=== PATIENT | male | born 1965 | race Caucasian/White ===

== ENCOUNTER → 2019-07-22 10:46 | Outpatient (BNVA) | payer OTHER, SELFPAY | PROVIDERS: Family Provider Internal Medicine; PCP Internal Medicine; Referring Provider Internal Medicine; Visit Provider Orthopaedic Surgery | DX: M79.641 Pain in right hand (principal) | CPT/HCPCS: 73130 ==

== ENCOUNTER 2021-06-30 08:09 | Emergency (ER) | payer BC, SELFPAY ==
[2021-06-30 08:15] VITALS: BP 179/103; PULSE 90; RESP 12; O2SAT 100; BMI 24.3
--- NOTE | 2021-06-30 08:25 | W.ED.WEAKNES ---
HPI - Weakness General: Chief complaint: Weakness Stated complaint: Chest Pains Time Seen by Provider: 06/30/21 08:11 Source: patient Mode of arrival: ambulatory History of Present Illness: 55-year-old male presents emergency room complaining of generalized weakness. Patient is diabetic and has a history of heart disease. He seems very frustrated on exam he states he has been to the skill training program coordinator office and was seen at a local urgent care. His main complaint now is his legs feel heavy. He was restarted on Coreg yesterday he repeatedly denies any chest pain or difficulty breathing or shortness of breath. Yesterday's cardiology note was reviewed. Patient does have a history of previous [place]. MD Complaint: generalized weakness Onset (ago): day(s) Duration: constant Location: LLE and RLE Migration: none Severity: moderate Relieving factors: none Exacerbating factors: none Associated symptoms: Reports myalgias; Denies chest pain, chills, confusion, melena, decreased appetite, diaphoresis, dysuria, easy bruising, fever(s), headache(s), nausea, rash, short of breath, syncope or vomiting Review of Systems Const: Denies: fever(s), chills or diaphoresis ENMT: Reports: ear or mastoid pain, nasal discharge and nasal congestion; Denies: throat pain Card: Denies: chest pain or syncope Resp: Denies: dyspnea, productive cough or non-productive cough GI: Denies: nausea, vomiting or melena : Denies: dysuria Skin/Breast: Denies: rash or pruritus Neuro: Denies: headache(s) or confusion Emiliano/Lymph: Denies: easy bruising [facility] ED PFSH: Medical History CAD (coronary artery disease) Congestive heart failure Diabetes mellitus Dyslipidemia History of heart attack Hypertension associated with type 2 diabetes mellitus Ischemic cardiomyopathy Palmar fascial fibromatosis [dupuytren] Social History Smoking and tobacco status: never smoked Alcohol intake: never Physical Exam Const: COMMON NORMALS: no acute distress GENERAL APPEARANCE: cooperative and comfortable ORIENTATION/CONSCIOUSNESS: Yes awake, Yes oriented to person, Yes oriented to place and Yes oriented to time HENMT: COMMON NORMALS: normocephalic, atraumatic and hearing grossly normal bilaterally HEAD & SCALP: normocephalic and atraumatic Neck/C-Spine: COMMON NORMALS: no JVD Resp: COMMON NORMALS: normal respiratory effort, No retractions, No use of accessory muscles and clear to auscultation bilaterally AUSCULTATION: clear to auscultation bilaterally Cardio: COMMON NORMALS: no JVD, regular rate, regular rhythm and No murmurs present (Cardio) RATE: regular rate RHYTHM: regular rhythm GI: COMMON NORMALS: Soft to palpation and No hepatosplenomegaly present AUSCULTATION: Yes normoactive bowel sounds PALPATION: Yes Soft to palpation, No Tenderness to palpation present (GI), No Guarding due to palpation present (GI) and Yes No hepatosplenomegaly present Extremity: COMMON NORMALS: normal to inspection, capillary refill normal, no clubbing, cyanosis or edema, no calf tenderness and no pedal edema OTHER: No lower extremity edema negative Homans' sign no pain with palpation of the calf Neuro: SENSORIUM/ORIENTATION: Yes oriented to person, Yes oriented to place and Yes oriented to time Skin: COMMON NORMALS: no rashes or lesions noted GENERAL SKIN EXAM: no rashes or lesions noted Course Vital Signs: Vital signs: Vital Signs Pulse Rate 98 06/30/21 10:30 Respiratory Rate 17 06/30/21 10:30 Blood Pressure 116/81 06/30/21 10:30 Pulse Oximetry 99 06/30/21 10:30 MDM - Weakness Medical Decision Making Venous duplex negative laboratory work negative blood pressure is improved. [place] discharge patient home. He has had intermittent episodes of chest pain for some time cardiology notes reviewed recommend that he follow-up with his cardiologistas soon as possible return if he has further problems. Medical Records I reviewed the patient's medical records. Lab Data I reviewed the patient's lab results. : 06/30/21 08:45 06/30/21 09:23 Laboratory Results WBC 7.7 10^3/uL (4.0-10.0) 06/30/21 08:45 RBC 5.58 10^6/uL (4.1-5.3) H 06/30/21 08:45 Hgb 17.8 g/dL (11.7-16.6) H 06/30/21 08:45 Hct 50.1 % (42.0-52.0) 06/30/21 08:45 MCV 89.8 fl (80-94) 06/30/21 08:45 MCH 31.9 pg (28.0-34.0) 06/30/21 08:45 MCHC 35.5 g/dL (30.0-36.0) 06/30/21 08:45 RDW 11.0 % (12.1-15.1) L 06/30/21 08:45 Plt Count 255 10^3/cmm (130-400) 06/30/21 08:45 MPV 9.9 fL (7.4-10.4) 06/30/21 08:45 Neut % (Auto) 52.4 % 06/30/21 08:45 Lymph % (Auto) 34.5 % 06/30/21 08:45 Glynn % (Auto) 7.2 % 06/30/21 08:45 Eos % (Auto) 5.0 % 06/30/21 08:45 Baso % (Auto) 0.6 % 06/30/21 08:45 Neut # (Auto) 4.04 10^3/uL (1.8-7.7) 06/30/21 08:45 Lymph # (Auto) 2.7 10^3/uL (0.8-4.8) 06/30/21 08:45 Glynn # (Auto) 0.6 10^3/uL (0.2-0.9) 06/30/21 08:45 Eos # (Auto) 0.4 10^3/uL (0.0-0.8) 06/30/21 08:45 Baso # (Auto) 0.1 10^3/uL (0.0-0.1) 06/30/21 08:45 Nucleated RBC % (auto) 0 % 06/30/21 08:45 Nucleated RBCs # 0.0 /100WBC 06/30/21 08:45 Sodium 135 mmol/L (136-145) L 06/30/21 09:23 Potassium 4.4 mmol/L (3.5-5.1) 06/30/21 09:23 Chloride 100 mmol/L (98-107) 06/30/21 09:23 Carbon Dioxide 24 mmol/L (22-29) 02/23/22 09:23 Anion Gap 15.4 (5-19) 06/30/21 09:23 BUN 20 mg/dL (6-20) 06/30/21 09:23 Creatinine 1.0 mg/dL (0.7-1.2) 06/30/21 09:23 GFR Calculation 78.2 mL/min (90-130) L 06/30/21 09:23 Glucose 199 mg/dL (65-115) H 06/30/21 09:23 Calculated Osmolality 288 mOsm/kg (285-295) 06/30/21 09:23 Calcium 9.2 mg/dL (8.5-10.5) 06/30/21 09:23 Troponin T Gen 5 ng/L 15 ng/L (0-15) 06/30/21 09:23 Discharge Plan Discharge Patient Disposition: Home Clinical Impression: Hypertension, Diabetes mellitus, CAD (coronary artery disease), Congestive heart failure, Leg pain Condition: Stable Prescriptions: No Action aspirin 81 mg tablet,delayed release (DR/EC) 81 mg PO DAILY 0RF carvedilol [Coreg] 6.25 mg tablet 6.25 mg PO BID 90 Days Qty: 180 3RF Rx Instructions: must administer with a meal/food ticagrelor [Brilinta] 90 mg tablet 90 mg PO BID Qty: 180 2RF furosemide 20 mg tablet 20 mg PO DAILY Qty: 90 2RF Lomotil 2.5-0.025 mg Tablet 1 tab PO DAILY PRN (Reason: Diarrhea) 0RF Humalog KwikPen Insulin 100 unit/mL insulin pen 9 unit SUBCUT TID 0RF Lantus Solostar U-100 Insulin 100 unit/mL (3 mL) Insulin Pen 20 unit SUBCUT BEDTIME 0RF Probiotic 1 cap PO DAILY 0RF Vitamin D3 1 cap PO DAILY 0RF Discharge Orders: Discharge ED (Routine); Ordered 06/30/21 Ordered By: Angelo Cui Referrals: Marcelo Lester DO [Primary Care Provider] - Discharge Diet: Usual diet Discharge Activity: Limit activity as instructed Patient Instructions: Opioid Safety Activity Restrictions/Additional Instructions: Follow-up with cardiology as previously scheduled. continue all previously prescribed medications. Coding Level of Care Code ED Mortgage Loan Officer for Chg Fwd Exam Comprehensive
[2021-06-30] MEDS: amlodipine 10 mg Tablet PO (08:40)
[2021-06-30] MEDS: hyDRALAzine 20 mg/mL INJ 1 mL 10 MG IVP (08:41)
[2021-06-30 08:54] VITALS: BP 152/88; PULSE 88; RESP 17; O2SAT 99
[2021-06-30 09:01] LABS: Basophils # 0.1 10^3/uL (0.0-0.1); Basophils % 0.6 %; Eosinophils # 0.4 10^3/uL (0.0-0.8); Hematocrit 50.1 % (42.0-52.0); Hemoglobin 17.8 g/dL (11.7-16.6); Lymphocytes # 2.7 10^3/uL (0.8-4.8); Lymphocytes % 34.5 %; Mean Corpuscular HGB Conc 35.5 g/dL (30.0-36.0); Mean Corpuscular Hemoglobin 31.9 pg (28.0-34.0); Mean Corpuscular Volume 89.8 fl (80-94); Mean Platelet Volume 9.9 fL (7.4-10.4); Monocytes # 0.6 10^3/uL (0.2-0.9); Monocytes % 7.2 %; Neutrophils # 4.04 10^3/uL (1.8-7.7); Neutrophils % 52.4 %; Nucleated Red Blood Cells % 0 %; Platelet Count 255 10^3/cmm (130-400); Red Blood Count 5.58 10^6/uL (4.1-5.3); White Blood Count 7.7 10^3/uL (4.0-10.0)
--- NOTE | 2021-06-30 09:11 | USCV_ITS ---
MartinezSebastien Age: 55 Gender: M : 1965 Exam Date: 06/30/2021 09:37 Ordering Phys: Angelo Cui DO Technologist: Rajiv Chapa Exam Location: [facility] – [place]_ Indication: Leg Pain HISTORY: Leg Pain PROCEDURES: Venous duplex imaging was performed in bilateral lower extremities. The following venous structures were evaluated: common femoral vein, profunda vein, proximal portion of the greater saphenous vein, superficial femoral vein, and the popliteal vein. In addition, the posterior tibial and peroneal trunk were evaluated. Serial compression, augmentation maneuvers, and spectral Doppler flow evaluation were performed. FINDINGS: Normal 2-D Doppler and augmentation and compressibility throughout the lower extremity venous structures. Additional imaging through the proximal calf veins also reveals no thrombus. Limited evaluation of the greater saphenous vein is patent with no thrombus. CONCLUSIONS No DVT bilateral lower extremities. Dr. Eugenia Goodwin DO (Electronically Signed) Final Date: 30 June 2021 11:11 S
[2021-06-30 09:24] VITALS: BP 136/89; PULSE 93; RESP 15; O2SAT 98
[2021-06-30 09:59] LABS: Anion Gap 15.4 (5-19); Blood Urea Nitrogen 20 mg/dL (6-20); Calcium 9.2 mg/dL (8.5-10.5); Carbon Dioxide 24 mmol/L (22-29); Chloride 100 mmol/L (98-107); Glomerular Filtration Rate 78.2 mL/min (90-130); Glucose 199 mg/dL (65-115); Osmolality Calculated 288 mOsm/kg (285-295); Potassium 4.4 mmol/L (3.5-5.1); Sodium 135 mmol/L (136-145)
[2021-06-30 10:00] VITALS: BP 130/82; PULSE 91; RESP 15; O2SAT 98
[2021-06-30 10:11] LABS: Troponin T (5th) Once 15 ng/L (0-15)
[2021-06-30 10:30] VITALS: BP 116/81; PULSE 98; RESP 17; O2SAT 99
--- NOTE | 2021-06-30 10:49 | PC.NURSE ---
DISCHARGED PATIENT TO HOME- IV REMOVED- CATH INTACT, PATIENT AND SPOUSE VERBALIZE UNDERSTANDING OF ALL INSTRUCTIONS, AND FOLLOW UP APPTS. PATIENT TAKEN TO LOBBY VIA WHEEL CHAIR
== END 2021-06-30 10:55 | disposition home or self-care (01) ==
PROVIDERS: Emergency Provider Family Medicine; PCP Internal Medicine
DX: I11.0 Hypertensive heart disease with heart failure (principal); I50.9 Heart failure, unspecified; E11.9 Type 2 diabetes mellitus without complications; I25.10 Atherosclerotic heart disease of native coronary artery without angina pectoris; Z79.82 Long term (current) use of aspirin; Z79.4 Long term (current) use of insulin; M79.606 Pain in leg, unspecified; E78.5 Hyperlipidemia, unspecified
CPT/HCPCS: 36415; 80048; 84484; 85025; 93970; 96374; 99283; J0360

== ENCOUNTER 2021-07-05 05:07 | Inpatient (IN) | payer BC, SELFPAY ==
[2021-07-05] VITALS (15 sets, daily range): BP systolic 110–164; BP diastolic 68–104; PULSE 72–92; RESP 16–18; TEMP 36.3–36.8; O2SAT 80–99; BMI 25.0
--- NOTE | 2021-07-05 05:26 | CTR_ITS ---
PROCEDURE INFORMATION: Exam: CT Head Without Contrast Exam date and time: 07/05/2021 5:26 AM Age: 55 years old Clinical indication: Numbness / parasthesia; Left; Additional info: Paresthesia, left TECHNIQUE: Imaging protocol: Computed tomography of the head without contrast. Radiation optimization: All CT scans at this facility use at least one of these dose optimization techniques: automated exposure control; mA and/or kV adjustment per patient size (includes targeted exams where dose is matched to clinical indication); or iterative reconstruction. COMPARISON: No relevant prior studies available. 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 3 mm midline shift to the left secondary to mass effect from subacute infarct with cerebral edema. Cerebral ventricles: No ventriculomegaly. Paranasal sinuses: Visualized sinuses are unremarkable. No fluid levels. Mastoid air cells: Visualized mastoid air cells are well aerated. Bones/joints: Unremarkable. No acute fracture. Soft tissues: Unremarkable. CT/CT head wo con* [id number] IMPRESSION: 1. 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 2. 3 mm midline shift to the left secondary to mass effect from subacute infarct with cerebral edema.
--- NOTE | 2021-07-05 05:27 | ECG_ITS ---
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 Measurements Intervals [place] Rate: 79 P: 53 NE: 159 QRS: 7 QRSD: 103 T: 117 QT: 405 QTc: 464 Interpretive Statements SINUS RHYTHM POSSIBLE LEFT ATRIAL ENLARGEMENT [-0.1mV P-WAVE IN V1/V2] SEPTAL MYOCARDIAL INFARCTION , PROBABLY OLD [40+ ms Q WAVE IN V1/V2] Nonspecific T wave changes Compared to ECG 02/05/2018 06:17:41 ossible ischemia no longer present Myocardial infarct finding still present Electronically Signed On 07-05-2021 17:03:42 REPAIRING CALIBRATOR by Liza Steward M.D. [id number]
--- NOTE | 2021-07-05 05:28 | ED_ITS ---
Documented by User: Silvano Corbett DO 07/05/21 05:39 HPI - Neuro Symptoms/Deficit General: Chief Complaint: Neuro Symptoms/Deficit Stated Complaint: Numbness Time Seen by Provider: 07/05/21 05:17 Source: patient and family History of Present Illness: 55-year-old diabetic male with a history of coronary disease. He presents with paresthesias to his left leg and now his left arm. He was seen in the emergency room 5 days or so ago for similar symptoms to his left lower extremity. Has had these on and off since then. Thi s morning he awoke at 3 AM with similar symptoms to his left upper extremity and his head. He has had a headache on and off for several days. No headache currently. No vision changes, no language changes, but he does say his left side feels heavier than the right. He notes that when he was seen the other day, his blood pressure was fritz high . It has not been high at home since that time. Onset (ago): hour(s) Time: 05:30 Location: left face, left arm and left leg History of same: Yes (See above) Severity: moderate Quality: weak, numb, tingling and intermittent Relieving factors: none Exacerbating factors: none Context: sudden onset On Anticoagulants: No Associated symptoms: Reports headache(s), malaise, nausea and vomiting (Once); Deny chest pain, cough, diaphoresis, fevers/chills, short of breath or syncope Review of Systems Const: Reports: malaise; Denies: diaphoresis ENMT: Denies: throat pain or odynophagia Card: Denies: chest pain or syncope Resp: Denies: dyspnea, productive cough or non-productive cough GI: Reports: nausea and vomiting (Once); Denies: abdominal pain Musc: Denies: neck pain or back pain Neuro: Reports: headache(s) Psych: Reports: anxiety and depression (Father 6 months or so ago.) PFS ED PFSH: Medical History (Updated 07/05/21 @ 12:26 by Angelo Cui DO) CAD (coronary artery disease) Has had stents in RCA, LAD, circumflex with last procedure being angioplasty LAD stent 2018 Congestive heart failure Last ejection fraction 35%. Diabetes mellitus Dyslipidemia History of heart attack Hypertension associated with type 2 diabetes mellitus Ischemic cardiomyopathy Palmar fascial fibromatosis [dupuytren] Surgical History (Updated 07/05/21 @ 10:20 by Segundo Olmstead MD) History of coronary angiogram History of eye surgery Family History (Updated 07/05/21 @ 10:20 by Segundo Olmstead MD) Other CAD (coronary artery disease) Diabetes Social History Smoking and tobacco status: never smoked Alcohol intake: never NIH stroke score NIHSS: Level Of Consciousness - 1a: 0 Level Of Consciousness Questions - 1b: Both Correct Level Of Consciousness Commands - 1c: Both Correct Best Gaze - 2: Normal Visual Oneill - 3: No Visual Loss Facial Palsy - 4: Normal Motor Arm Right - 5: No Drift Motor Arm Left - 5: No Drift Motor Leg Right - 6: No Drift Motor Leg Left - 6: No Drift Limb Ataxia - 7: Absent Sensory - 8: Mild To Moderate Loss Best Language - 9: No Aphasia Dysarthia - 10: Normal Extinction And Inattention - 11: 0 Score: Total Score: 1 Physical Exam Const: COMMON NORMALS: no acute distress and patient oriented x3 GENERAL APPEARANCE: cooperative NUTRITIONAL APPEARANCE: thin HENMT: COMMON NORMALS: normocephalic, atraumatic, hearing grossly normal bilaterally, external ears normal and Normal external nose present HEAD & SCALP: normocephalic and atraumatic FACE & SINUS: normal facial exam and face symmetric NOSE: Normal external nose present EXTERNAL EAR: Yes external ears normal MOUTH: Normal oral and palatal mucosa present THROAT: posterior oropharynx normal Eye: COMMON NORMALS: Equal, round and reactive pupils present and EOMs intact bilaterally PUPIL: Yes Equal, round and reactive pupils present Neck/C-Spine: COMMON NORMALS: full ROM Chest: COMMONS NORMALS: normal inspection of the chest Resp: COMMON NORMALS: normal respiratory effort, No use of accessory muscles and clear to auscultation bilaterally AUSCULTATION: clear to auscultation bilaterally Cardio: COMMON NORMALS: regular rate and regular rhythm RATE: regular rate RHYTHM: regular rhythm GI: COMMON NORMALS: Normal to inspection, nondistended, normoactive bowel sounds present and Soft to palpation PALPATION: Yes Soft to palpation Extremity: COMMON NORMALS: normal to inspection Neuro: PATY COMA SCALE: document GCS findings [place]o coma scale eye opening: Spontaneous [place] coma scale verbal response: Orientated [place] coma scale motor response: Obey commands Jericho coma scale total score: 15 COMMON NORMALS: patient oriented x3 CRANIAL NERVES: Yes CN normal except as noted COORDINATION/BALANCE: [id number] test normal and [id number] test normal SPEECH: speech normal SENSORY EXAM: Yes extremities (Mildly decreased subjectively on the left lower extremity) and Trunk sensory exam abnormal (Normal) MOTOR EXAM: Pronator motor function not present COORDINATION: [id number] test normal and cjig-tv-[id number] test normal Psych: COMMON NORMALS: cooperative ATTITUDE: Yes Withdrawn affect present Course Vital Signs: Vital signs: Vital Signs Temperature 97.4 F L 07/05/21 07:15 Pulse Rate 87 07/05/21 09:30 Respiratory Rate 18 07/05/21 09:30 Blood Pressure 128/84 07/05/21 09:30 Pulse Oximetry 97 07/05/21 09:30 MDM - Neuro Symptoms/Deficit Medical Decision Making Patient gets a 1 on an NIH scale for subjective left lower extremity decreased sensation. Strength is subjectively weak on the left as well, but he does not drift. Exam is otherwise not remarkable. CT and labs are pending. EKG shows a sinus rhythm with a normal axis and intervals. No ST changes. He will be checked out to Dr. Cui at shift change pending results. He awoke with the symptoms, and has had left leg symptoms for several days, so time of onset is difficult. Lab Data : 07/05/21 05:54 07/05/21 05:[address] 07/05/21 05:26 IMPRESSION: 1. 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 2. 3 mm midline shift to the left secondary to mass effect from subacute infarct with cerebral edema. ADDENDUM: 07/05/21 0637 History: Minimal symptoms. Low score on stroke scale. Discussion: CTA head & neck and/or nonemergent MRI brain with without contrast may be helpful to rule out other lesions besides subacute stroke. THIS REPORT CONTAINS FINDINGS THAT MAY BE CRITICAL TO PATIENT CARE. The findings were verbally communicated via telephone conference with Dr. Cui at 6:35 AM PRESCHOOL DIRECTOR on 07/05/2021. The findings were acknowledged and understood. Head MRI 07/05/21 07:49 IMPRESSION: 1. Diffuse T2 signal abnormality mainly in the subcortical configuration involving the RIGHT temporal and parietal lobes with some areas of restricted diffusion and diffuse associated petechial hemorrhage. Diffuse gyriform enhancement. Differential considerations include encephalitis including herpes encephalitis, infiltrating neoplasm, or subacute ischemia. 2. Mild associated mass effect on RIGHT lateral ventricle with mild RIGHT to LEFT midline shift measuring 2-3 mm. 3. Normal vascular flow voids at the skull base. 4. Additional single tiny punctate foci of partially restricted diffusion in the splenium of the corpus callosum and RIGHT posterior temporal lobe. These may represent tiny subacute infarcts. Notified Angelo Cui DO at 07/05/2021 9:54 AM. Laboratory Results WBC 7.2 10^3/uL (4.0-10.0) 07/05/21 05:54 RBC 4.67 10^6/uL (4.1-5.3) 07/05/21 05:54 Hgb 15.1 g/dL (11.7-16.6) 07/05/21 05:54 Hct 44.3 % (42.0-52.0) 07/05/21 05:54 MCV 94.9 fl (80-94) H 07/05/21 05:54 MCH 32.3 pg (28.0-34.0) 07/05/21 05:54 MCHC 34.1 g/dL (30.0-36.0) 07/05/21 05:54 RDW 11.0 % (12.1-15.1) L 07/05/21 05:54 Plt Count 258 10^3/cmm (130-400) 07/05/21 05:54 MPV 9.6 fL (7.4-10.4) 07/05/21 05:54 Neut % (Auto) 51.9 % 07/05/21 05:54 Lymph % (Auto) 35.9 % 07/05/21 05:54 Cowley % (Auto) 6.7 % 07/05/21 05:54 Eos % (Auto) 5.0 % 07/05/21 05:54 Baso % (Auto) 0.4 % 07/05/21 05:54 Neut # (Auto) 3.70 10^3/uL (1.8-7.7) 07/05/21 05:54 Lymph # (Auto) 2.6 10^3/uL (0.8-4.8) 07/05/21 05:54 Cowley # (Auto) 0.5 10^3/uL (0.2-0.9) 07/05/21 05:54 Eos # (Auto) 0.4 10^3/uL (0.0-0.8) 07/05/21 05:54 Baso # (Auto) 0.0 10^3/uL (0.0-0.1) 07/05/21 05:54 Nucleated RBC % (auto) 0 % 07/05/21 05:54 Nucleated RBCs # 0.0 /100WBC 07/05/21 05:54 PT Cancelled 07/05/21 05:54 INR Cancelled 07/05/21 05:54 APTT Cancelled 07/05/21 05:54 Sodium 133 mmol/L (136-145) L 07/05/21 05:54 Potassium 4.2 mmol/L (3.5-5.1) 07/05/21 05:54 Chloride 98 mmol/L (98-107) 07/05/21 05:54 Carbon Dioxide 20 mmol/L (22-29) L 07/05/21 05:54 Anion Gap 19.2 (5-19) H 07/05/21 05:54 BUN 22 mg/dL (6-20) H 07/05/21 05:54 Creatinine 1.0 mg/dL (0.7-1.2) 07/05/21 05:54 GFR Calculation 78.2 mL/min (90-130) L 07/05/21 05:54 Glucose 241 mg/dL (65-115) H 07/05/21 05:54 POC Glucose 239 mg/dL (70-110) H 07/05/21 10:42 Calculated Osmolality 287 mOsm/kg (285-295) 07/05/21 05:54 Calcium 9.1 mg/dL (8.5-10.5) 07/05/21 05:54 Total Bilirubin 0.7 mg/dL (0.15-1.2) 07/05/21 05:54 AST 16 U/L (0-40) 07/05/21 05:54 ALT 15 U/L (0-41) 07/05/21 05:54 Alkaline Phosphatase 86 IU/L (40-130) 07/05/21 05:54 Creatine Kinase 72 U/L (39-308) 07/05/21 05:54 Total Protein 6.9 g/dL (6.6-8.7) 07/05/21 05:54 Albumin 4.1 g/dL (3.5-5.2) 07/05/21 05:54 Globulin 2.8 g/dL (1.3-4.6) 07/05/21 05:54 Vitamin B12 863 pg/mL (232-1245) 07/05/21 05:54 Folate 18.3 ng/mL (4.5-32.2) 07/05/21 05:52 Discharge Plan Discharge Patient Disposition: Admitted As Inpatient Clinical Impression: Encephalitis Condition: Stable Prescriptions: No Action aspirin 81 mg tablet,delayed release (DR/EC) 81 mg PO DAILY 0RF carvedilol [Coreg] 6.25 mg tablet 6.25 mg PO BID 90 Days Qty: 180 3RF Rx Instructions: must administer with a meal/food ticagrelor [Brilinta] 90 mg tablet 90 mg PO BID Qty: 180 2RF furosemide 20 mg tablet 20 mg PO DAILY Qty: 90 2RF diphenoxylate-atropine [Lomotil] 2.5-0.025 mg Tablet 1 tab PO DAILY PRN (Reason: Diarrhea) 0RF insulin lispro [Humalog KwikPen Insulin] 100 unit/mL insulin pen 9 unit SUBCUT TID 0RF Lantus Solostar U-100 Insulin 100 unit/mL (3 mL) Insulin Pen 20 unit SUBCUT BEDTIME 0RF meclizine 25 mg Tablet 25 mg PO DAILY PRN (Reason: Dizziness) 0RF Probiotic Gummies 1 tab PO DAILY 0RF Vitamin D Gummies 1 tab PO DAILY 0RF Referrals: Marcelo Lester DO [Primary Care Provider] - Sign Out Sign Out Data: Patient Sign Out occurred on 07/05/21 at 06:14. Patient's care was discussed, and care was transferred from to Angelo Cui DO. Coding Level of Care Code ED Family Service Caseworker for Chg Fwd Exam Comprehensive Documented by User: Angelo Cui DO 07/05/21 12:26 HPI - Neuro Symptoms/Deficit General: Chief Complaint: Neuro Symptoms/Deficit Stated Complaint: Numbness Time Seen by Provider: 07/05/21 05:17 [facility] ED PFSH: Medical History (Updated 07/05/21 @ 12:26 by Angelo Cui DO) CAD (coronary artery disease) Has had stents in RCA, LAD, circumflex with last procedure being angioplasty LAD stent 2018 Congestive heart failure Last ejection fraction 35%. Diabetes mellitus Dyslipidemia History of heart attack Hypertension associated with type 2 diabetes mellitus Ischemic cardiomyopathy Palmar fascial fibromatosis [dupuytren] Surgical History (Updated 07/05/21 @ 10:20 by Segundo Olmstead MD) History of coronary angiogram History of eye surgery Family History (Updated 07/05/21 @ 10:20 by Segundo Olmstead MD) Other CAD (coronary artery disease) Diabetes Social History Smoking and tobacco status: never smoked Alcohol intake: never NIH stroke score Score: Total Score: 1 Physical Exam Neuro: PATY COMA SCALE: document GCS findings Paty coma scale total score: 15 Course Vital Signs: Vital signs: Vital Signs Temperature 97.4 F L 07/05/21 07:15 Pulse Rate 87 07/05/21 09:30 Respiratory Rate 18 07/05/21 09:30 Blood Pressure 128/84 07/05/21 09:30 Pulse Oximetry 97 07/05/21 09:30 MDM - Neuro Symptoms/Deficit Medical Decision Making Patient gets a 1 on an NIH scale for subjective left lower extremity decreased sensation. Strength is subjectively weak on the left as well, but he does not drift. Exam is otherwise not remarkable. CT and labs are pending. EKG shows a sinus rhythm with a normal axis and intervals. No ST changes. He will be checked out to Dr. Cui at shift change pending results. He awoke with the symptoms, and has had left leg symptoms for several days, so time of onset is difficult. CT shows large abnormal area with edema of the 3 mm midline shift. Discussed with radiology we did an MRI etc. concerned about underlying mass. Initially the concern was stroke however despite a very large area of involvement he has a stroke score of 0 now when I see recheck the patient in [address] Corbett. MRI shows increased enhancement concerning for inflammatory or infectious process possibly herpes encephalopathy. Not really encephalopathic right now. Discussed with hospitalist and with Dr. Thomas she is going to tap him she will consult on the patient I have consented the patient for the procedure and we are admitting him and started acyclovir at her request discussed Dr. Olmstead is well orders are written. Medical Records I reviewed the patient's medical records. Lab Data I reviewed the patient's lab results. : 07/05/21 05:54 07/05/21 05:[address] 07/05/21 05:26 IMPRESSION: 1. 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 2. 3 mm midline shift to the left secondary to mass effect from subacute infarct with cerebral edema. ADDENDUM: 07/05/21 0637 History: Minimal symptoms. Low score on stroke scale. Discussion: CTA head & neck and/or nonemergent MRI brain with without contrast may be helpful to rule out other lesions besides subacute stroke. THIS REPORT CONTAINS FINDINGS THAT MAY BE CRITICAL TO PATIENT CARE. The findings were verbally communicated via telephone conference with Dr. Cui at 6:35 AM PRESCHOOL DIRECTOR on 07/05/2021. The findings were acknowledged and understood. Head MRI 07/05/21 07:49 IMPRESSION: 1. Diffuse T2 signal abnormality mainly in the subcortical configuration involving the RIGHT temporal and parietal lobes with some areas of restricted diffusion and diffuse associated petechial hemorrhage. Diffuse gyriform enha ncement. Differential considerations include encephalitis including herpes encephalitis, infiltrating neoplasm, or subacute ischemia. 2. Mild associated mass effect on RIGHT lateral ventricle with mild RIGHT to LEFT midline shift measuring 2-3 mm. 3. Normal vascular flow voids at the skull base. 4. Additional single tiny punctate foci of partially restricted diffusion in the splenium of the corpus callosum and RIGHT posterior temporal lobe. These may represent tiny subacute infarcts. Notified Angelo Cui DO at 07/05/2021 9:54 AM. Laboratory Results WBC 7.2 10^3/uL (4.0-10.0) 07/05/21 05:54 RBC 4.67 10^6/uL (4.1-5.3) 07/05/21 05:54 Hgb 15.1 g/dL (11.7-16.6) 07/05/21 05:54 Hct 44.3 % (42.0-52.0) 07/05/21 05:54 MCV 94.9 fl (80-94) H 07/05/21 05:54 MCH 32.3 pg (28.0-34.0) 07/05/21 05:54 MCHC 34.1 g/dL (30.0-36.0) 07/05/21 05:54 RDW 11.0 % (12.1-15.1) L 07/05/21 05:54 Plt Count 258 10^3/cmm (130-400) 07/05/21 05:54 MPV 9.6 fL (7.4-10.4) 07/05/21 05:54 Neut % (Auto) 51.9 % 07/05/21 05:54 Lymph % (Auto) 35.9 % 07/05/21 05:54 Cowley % (Auto) 6.7 % 07/05/21 05:54 Eos % (Auto) 5.0 % 07/05/21 05:54 Baso % (Auto) 0.4 % 07/05/21 05:54 Neut # (Auto) 3.70 10^3/uL (1.8-7.7) 07/05/21 05:54 Lymph # (Auto) 2.6 10^3/uL (0.8-4.8) 07/05/21 05:54 Cowley # (Auto) 0.5 10^3/uL (0.2-0.9) 07/05/21 05:54 Eos # (Auto) 0.4 10^3/uL (0.0-0.8) 07/05/21 05:54 Baso # (Auto) 0.0 10^3/uL (0.0-0.1) 07/05/21 05:54 Nucleated RBC % (auto) 0 % 07/05/21 05:54 Nucleated RBCs # 0.0 /100WBC 07/05/21 05:54 PT Cancelled 07/05/21 05:54 INR Cancelled 07/05/21 05:54 APTT Cancelled 07/05/21 05:54 Sodium 133 mmol/L (136-145) L 07/05/21 05:54 Potassium 4.2 mmol/L (3.5-5.1) 07/05/21 05:54 Chloride 98 mmol/L (98-107) 07/05/21 05:54 Carbon Dioxide 20 mmol/L (22-29) L 07/05/21 05:54 Anion Gap 19.2 (5-19) H 07/05/21 05:54 BUN 22 mg/dL (6-20) H 07/05/21 05:54 Creatinine 1.0 mg/dL (0.7-1.2) 07/05/21 05:54 GFR Calculation 78.2 mL/min (90-130) L 07/05/21 05:54 Glucose 241 mg/dL (65-115) H 07/05/21 05:54 POC Glucose 239 mg/dL (70-110) H 07/05/21 10:42 Calculated Osmolality 287 mOsm/kg (285-295) 07/05/21 05:54 Calcium 9.1 mg/dL (8.5-10.5) 07/05/21 05:54 Total Bilirubin 0.7 mg/dL (0.15-1.2) 07/05/21 05:54 AST 16 U/L (0-40) 07/05/21 05:54 ALT 15 U/L (0-41) 07/05/21 05:54 Alkaline Phosphatase 86 IU/L (40-130) 07/05/21 05:54 Creatine Kinase 72 U/L (39-308) 07/05/21 05:54 Total Protein 6.9 g/dL (6.6-8.7) 07/05/21 05:54 Albumin 4.1 g/dL (3.5-5.2) 07/05/21 05:54 Globulin 2.8 g/dL (1.3-4.6) 07/05/21 05:54 Vitamin B12 863 pg/mL (232-1245) 07/05/21 05:54 Folate 18.3 ng/mL (4.5-32.2) 07/05/21 05:52 Discharge Plan Discharge Patient Disposition: Admitted As Inpatient Clinical Impression: Encephalitis Condition: Stable Prescriptions: No Action aspirin 81 mg tablet,delayed release (DR/EC) 81 mg PO DAILY 0RF carvedilol [Coreg] 6.25 mg tablet 6.25 mg PO BID 90 Days Qty: 180 3RF Rx Instructions: must administer with a meal/food ticagrelor [Brilinta] 90 mg tablet 90 mg PO BID Qty: 180 2RF furosemide 20 mg tablet 20 mg PO DAILY Qty: 90 2RF diphenoxylate-atropine [Lomotil] 2.5-0.025 mg Tablet 1 tab PO DAILY PRN (Reason: Diarrhea) 0RF insulin lispro [Humalog KwikPen Insulin] 100 unit/mL insulin pen 9 unit SUBCUT TID 0RF Lantus Solostar U-100 Insulin 100 unit/mL (3 mL) Insulin Pen 20 unit SUBCUT BEDTIME 0RF meclizine 25 mg Tablet 25 mg PO DAILY PRN (Reason: Dizziness) 0RF Probiotic Gummies 1 tab PO DAILY 0RF Vitamin D Gummies 1 tab PO DAILY 0RF Referrals: Marcelo Lester DO [Primary Care Provider] - Sign Out Sign Out Data: Patient Sign Out occurred on 07/05/21 at 06:14. Patient's care was discussed, and care was transferred from to Angelo Cui DO. Coding Level of Care Code ED Family Service Caseworker for Bettye Fwd Exam Comprehensive
[2021-07-05 06:01] LABS: Basophils % 0.4 %; Eosinophils # 0.4 10^3/uL (0.0-0.8); Hematocrit 44.3 % (42.0-52.0); Hemoglobin 15.1 g/dL (11.7-16.6); Lymphocytes # 2.6 10^3/uL (0.8-4.8); Lymphocytes % 35.9 %; Mean Corpuscular HGB Conc 34.1 g/dL (30.0-36.0); Mean Corpuscular Hemoglobin 32.3 pg (28.0-34.0); Mean Corpuscular Volume 94.9 fl (80-94); Mean Platelet Volume 9.6 fL (7.4-10.4); Monocytes # 0.5 10^3/uL (0.2-0.9); Monocytes % 6.7 %; Neutrophils % 51.9 %; Nucleated Red Blood Cells % 0 %; Platelet Count 258 10^3/cmm (130-400); Red Blood Count 4.67 10^6/uL (4.1-5.3); White Blood Count 7.2 10^3/uL (4.0-10.0)
[2021-07-05] MEDS: ondansetron 2 mg/ML SDV 2 mL 4 MG IVP ×2 (06:20→22:03)
[2021-07-05 06:30] LABS: Aspartate Amino Transferase 16 U/L (0-40)
[2021-07-05 06:37] LABS: Potassium 4.2 mmol/L (3.5-5.1)
[2021-07-05 06:49] LABS: Alanine Aminotransferase 15 U/L (0-41); Albumin Level 4.1 g/dL (3.5-5.2); Alkaline Phosphatase 86 IU/L (40-130); Anion Gap 19.2 (5-19); Blood Urea Nitrogen 22 mg/dL (6-20); Calcium 9.1 mg/dL (8.5-10.5); Carbon Dioxide 20 mmol/L (22-29); Chloride 98 mmol/L (98-107); Creatine Phosphokinase 72 U/L (39-308); Globulin 2.8 g/dL (1.3-4.6); Glomerular Filtration Rate 78.2 mL/min (90-130); Glucose 241 mg/dL (65-115); Osmolality Calculated 287 mOsm/kg (285-295); Sodium 133 mmol/L (136-145); Total Bilirubin 0.7 mg/dL (0.15-1.2); Total Protein 6.9 g/dL (6.6-8.7)
[2021-07-05 07:07] LABS: INR 0.92 (0.8-1.2)
[2021-07-05 07:08] LABS: Partial Thromboplastin Time 30.3 SECONDS (23.9-36.7)
[2021-07-05 07:21] LABS: Vitamin B12 863 pg/mL (232-1245)
[2021-07-05 07:49] LABS: Folate Level 18.3 ng/mL (4.5-32.2)
--- NOTE | 2021-07-05 07:49 | MR_ITS ---
WS: [id number] MRI HEAD WITH CONTRAST TECHNIQUE: Sagittal T1, T2 axial, T2 axial FLAIR, axial susceptibility weighted imaging, axial diffus ion weighted images, and coronal T2 images were obtained. Pre and post-T1 axial and post T1 coronal i mages. ADC and FSPGR images. CLINICAL INFORMATION: brin mass/CVA COMPARISON: CT July 05, 2021 FINDINGS: Diffuse mainly subcortical T2 signal abnormality compatible with edema involving the RIGHT temporal a nd parietal lobes with mild localized mass effect. Mild mass effect in the RIGHT lateral ventricle wi th slight RIGHT to LEFT midline shift measuring 2-3 mm. No hydrocephalus. Diffuse gyriform type enhan cement in the areas of edema with leptomeningeal enhancement. Diffuse associated petechial hemorrhage throughout the RIGHT temporal and parietal areas of edema. One or 2 additional foci of punctate part ially restricted diffusion in the splenium of the corpus callosum and RIGHT occipital lobe. Partially restricted subcortical diffusion involving the RIGHT temporal and parietal lobes. Normal signal in t he abbey and LEFT temporal lobe. Normal mesial temporal lobes. Normal posterior fossa. Normal vascular flow voids at the skull base. Mild mucosal thickening in the paranasal sinuses. Mastoid air cells are well aerated. MR/MR head wo/w con [id number] IMPRESSION: 1. Diffuse T2 signal abnormality mainly in the subcortical configuration invol ving the RIGHT temporal and parietal lobes with some areas of restricted diffus ion and diffuse associated petechial hemorrhage. Diffuse gyriform enhancement. Differential considerations include encephalitis including herpes encephalitis, infiltrating neoplasm, or subacute ischemia. 2. Mild associated mass effect on RIGHT lateral ventricle with mild RIGHT to L EFT midline shift measuring 2-3 mm. 3. Normal vascular flow voids at the skull base. 4. Additional single tiny punctate foci of partially restricted diffusion in t he splenium of the corpus callosum and RIGHT posterior temporal lobe. These may represent tiny subacute infarcts. Notified Angelo Cui DO at 07/05/2021 9:54 AM.
--- NOTE | 2021-07-05 08:04 | PC.PHAR ---
PTS VERIFIED PTS MEDICATIONS-PTS STATES THE PT IS STILL TAKING BRILINTA 90MG BID [facility] STATES THEY LAST FILLED OCTOBER 2020 PTS STATES [facility] IS THE PHARMACY THAT THEY GET IT FROM-NOTES ARE MADE IN THE PHARMACY COMMENTS
[2021-07-05] MEDS: LORazepam 2 mg/mL INJ 1 mL IVP ×2 (08:24→18:14)
--- NOTE | 2021-07-05 08:28 | PC.NURSE ---
Lft unit for MRI, premed w ativan just prior to transport.
[2021-07-05] MEDS: gadobenate dimeglumine 20 mL vial IV (09:01)
--- NOTE | 2021-07-05 10:15 | P.HP_ITS ---
Providers/Chief Complaint Primary Care Provider: Marcelo Lester DO Chief Complaint: Numbness History of Present Illness Sebastien Martinez is a 55 year old male who presents to the emergency department with symptoms going on for 10 days, by private vehicle. He was seen previously in the emergency department on June 30 where he complained that his legs were heavy. Since that time he has predominantly left-sided symptoms, of numbn ess, tingling, and discomfort. Left leg is affected more than left arm. He also has weakness. Numbness includes face on the left. He states the symptoms, and goes somewhat, being worse in the morning. He has had a headache, but no fever. No specific neck pain. Most of his headache is bit on the right side. He has had some nausea, and one episode of vomiting. No ill contacts. Denies any history of stroke, seizure. Review of Systems General: Reports: 10 or more systems reviewed and unremarkable except in HPI and below Const: Denies: fever(s) Eyes: Denies: change in vision ENMT: Denies: throat pain Card: Denies: chest pain Resp: Denies: dyspnea GI: Reports: nausea and vomiting : Reports: flank pain Musc: Denies: neck pain Skin/Breast: Denies: rash Neuro: Reports: headache(s), numbness in extremities, weakness in extremities, sensory changes and difficulty walking Psych: Denies: anxiety or depression Endo: Denies: polyuria Emiliano/Lymph: Denies: easy bruising All/Imm: Denies: urticaria Medications/Allergies Home Medications Medication Instructions Recorded Confirmed Last Taken Type aspirin 81 mg tablet,delayed 81 mg PO DAILY 11/18/19 07/05/21 07/04/21 History release furosemide 20 mg tablet 20 mg PO DAILY #90 tab 11/25/19 07/05/21 06/29/21 Rx ticagrelor 90 mg tablet (Brilinta) 90 mg PO BID #180 tab 11/25/19 07/05/21 07/04/21 Rx carvedilol 6.25 mg tablet (Coreg) 6.25 mg PO BID 90 Days #180 tab 06/29/21 07/05/21 06/30/21 Rx diphenoxylate-atropine 2.5 1 tab PO DAILY PRN 06/30/21 07/05/21 06/29/21 History mg-0.025 mg tablet (Lomotil) insulin glargine 100 unit/mL (3 20 unit SUBCUT BEDTIME 06/30/21 07/05/21 07/04/21 History mL) subcutaneous pen (Lantus Solostar U-100 Insulin) insulin lispro 100 unit/mL 9 unit SUBCUT TID 06/30/21 07/05/21 07/04/21 History subcutaneous pen (Humalog KwikPen (U-100) Insulin) Probiotic Gummies 1 tab PO DAILY 07/05/21 07/05/21 07/04/21 History Vitamin D Gummies 1 tab PO DAILY 07/05/21 07/05/21 07/04/21 History meclizine 25 mg tablet 25 mg PO DAILY PRN 07/05/21 07/05/21 Unknown History Allergies Allergy/AdvReac Type Severity Reaction Status Date / Time No Known Allergies Allergy Verified 07/05/21 07:53 PFSH Acute PFSH: Medical History (Updated 07/05/21 @ 10:27 by Segundo Olmstead MD) CAD (coronary artery disease) Has had stents in RCA, LAD, circumflex with last procedure being angioplasty LAD stent 2018 Congestive heart failure Last ejection fraction 35%. Diabetes mellitus Dyslipidemia History of heart attack Hypertension associated with type 2 diabetes mellitus Ischemic cardiomyopathy Palmar fascial fibromatosis [dupuytren] Surgical History (Updated 07/05/21 @ 10:20 by Segundo Olmstead MD) History of coronary angiogram History of eye surgery Family History (Updated 07/05/21 @ 10:20 by Segundo Olmstead MD) Other CAD (coronary artery disease) Diabetes Social History Smoking and tobacco status: never smoked Alcohol intake: never Vitals/I&O/Wt Last Vital Signs Temp 97.4 F L 07/05/21 07:15 Pulse 83 07/05/21 08:00 Resp 18 07/05/21 08:00 BP 152/84 07/05/21 08:00 Pulse Ox 99 07/05/21 08:00 Weight last 48 hrs Weight 72.575 kg Physical Exam Narrative: General exam is a white male, holding the right side of his head, complaining of discomfort on the left side of his body HEENT: Pupils equally round Pharynx clear Neck is supple no lymphadenopathy thyromegaly Cardiovascular regular rate and rhythm without murmur, no S3 or S4 Lungs clear no wheezing or crackles Abdomen is soft nontender positive bowel sounds no obvious hepatosplenomegaly exam deferred Extremities no cyanosis clubbing or edema Skin no rash Neuro: Decreased sensation left side, most significant left lower extremity. Weakness is present, 5/6, left upper extremity and left lower extremity. Decreased sensation is also present in the face. He reports pain with movement of the left side of his body as well. No facial droop is present, nor tongue deviation. I did not delineate any cerebellar dysfunction. I did not test his gait. Speech is normal, and he does not appear to have any difficulty swallowing. Data : 07/05/21 05:54 07/05/21 05:54 Other Labs: INR is normal LFTs are normal Vitamin B12 and folate are normal Calcium 9.1 Chest x-ray June [address] had concern of right posterior temporal and parietal lobe subacute CVA with slight midline shift. MRI suggest possible encephalitis, although according to report infiltrating neoplasm or subacute ischemia is still a possibility. Mild associated mass-effect right lateral ventricle with mild right to left midline shift of 2 to 3 mm. Small area seen in right posterior temporal lobe, punctate lesion also noted. EKG demonstrated normal sinus rhythm, normal axis, inverted T waves lateral leads, left atrial enlargement, nonspecific ST-T wave changes A&P Assessment and plan (1) Left hemiparesis: Etiology not completely certain. MRI is suggestive of possible encephalitis. Acyclovir will be initiated, neurology consulted, and possibility of lumbar puncture. As there is still a slight possibility of subacute CVA will check a carotid duplex, echocardiogram. Note that he has had significant vascular disease in the past demonstrated by his coronary disease. Further orders or investigation depending upon consult from neurology. Hydrate cautiously Neurochecks Telemetry Secondary to recent vomiting we'll start with a clear liquid diet. Bedside swallowing done by me was normal Zofran as needed for nausea OT and PT consultations Status: Acute (2) Congestive heart failure: Currently appears compensated. Await echocardiogram. Monitor for any evidence of heart failure symptoms. For now hold Lasix as he appears slightly intravascularly dry Status: Acute (3) CAD (coronary artery disease): Continue Brilinta, aspirin. Initiate statin Continue carvedilol, lower dose as still concerned about possible vascular etiology of MRI appearance.(Permissive hypertension to be allowed) Status: Acute (4) Diabetes mellitus: Sliding scale insulin Status: Acute (5) Hypertension: Allow for some permissive hypertension Carvedilol dose will be reduced Status: Acute Plan Full code Lovenox for DVT prophylaxis to be initiated after neurology evaluation for possible lumbar puncture. Attestations Medical Necessity Statement*: Will need greater than 2 midnight stay for evaluation and treatment of abnormal MRI, probable encephalitis Coding Level of Care Code Acute B[facility] Pointer for [facility] Diagnoses Left hemiparesis G81.94 Congestive heart failure I50.9 CAD (coronary artery disease) I25.10 Diabetes mellitus E11.9 Hypertension I10
[2021-07-05 10:46] LABS: Glucose Point of Care 239 mg/dL (70-110)
[2021-07-05] MEDS: acyclovir 1,000 MG in sodium chloride 0.9% (100 ml) 100 ML 120 MG IV (11:22)
--- NOTE | 2021-07-05 12:32 | PC.NURSE ---
Spouse impatient to have pt transferred to medical room. Advised her we are waiting for a room to come available. Brought recliner chair to room for spouse to be more comfortable.
[2021-07-05] MEDS: insulin lispro 100 unit/1 mL SUBCUT ×2 (12:43→21:57)
--- NOTE | 2021-07-05 13:40 | USCV_ITS ---
Sebastien Martinez Age: 55 Gender: M : 1965 Exam Date: 07/05/2021 14:31 Ordering Phys: Segundo Olmstead MD Technologist: Alvin Kent Exam Location: [facility] – [place] Indication: hx of mi BP: 116 / 72 HR: 96 Rhythm: Sinus Technical Quality: Adequate MEASUREMENTS (Male / Female) Normal Values 2D ECHO LV Diastolic Diameter PLAX 4.5 cm 4.2 - 5.9 / 3.9 - 5.3 cm LV Systolic Diameter PLAX 3.6 cm IVS Diastolic Thickness 1.0 cm 0.6 - 1.0 / 0.6 - 0.9 cm IVS Systolic Thickness 1.1 cm LVPW Diastolic Thickness 1.0 cm 0.6 - 1.0 / 0.6 - 0.9 cm LVPW Systolic Thickness 1.2 cm LVOT Diameter 2.3 cm LV Ejection Fraction 2D Teich 22.1 % LV Ejection Fraction MOD 2C 42.3 % LV Ejection Fraction 2C AL 42.2 % LA Diameter 2.9 cm Aorta at Sinotubular Diameter 2.8 cm DOPPLER AV Peak Velocity 97.0 cm/s LVOT Peak Velocity 83.0 cm/s AV Area Cont Eq vti 3.6 cm squared AV Area Cont Eq pk 3.6 cm squared MV Area PHT 5.0 cm squared Mitral E to A Ratio 0.6 MV E' Velocity 27.5 cm/s Mitral E to MV E' Ratio 5.6 Mitral E to LV E' Lateral Ratio 4.7 Mitral E to LV E' Septal Ratio 6.8 TR Peak Velocity 147.0 cm/s TR Peak Gradient 8.6 mmHg Right Atrial Pressure 3.0 mmHg Pulmonary Artery Systolic Pressu 11.6 mmHg PV Peak Velocity 137.0 cm/s FINDINGS Left Ventricle Mildly increased left ventricular cavity size.Moderately decreased left ventricular systolic function. Left ventricular ejection fraction is estimated at 30-35 %. There is severe hypokinesis of anteroseptal, inferoseptal, apical septal and apical daily. There is relative sparing of basal anterolateral and inferolateral daily. Grade I diastolic dysfunction (abnormal relaxation filling pattern), normal to mildly elevated filling pressures. Right Ventricle Normal right ventricular size and systolic function. Right ventricular systolic pressure 11.6 mmHg. Right Atrium Normal right atrial size. Left Atrium Normal left atrial size. Mitral Valve Structurally normal mitral valve. No mitral valve stenosis. No significant mitral valve regurgitation. Aortic Valve Aortic valve not well visualized. No aortic valve stenosis. No aortic valve regurgitation. Tricuspid Valve Structurally normal tricuspid valve. Trace tricuspid valve regurgitation. Pulmonic Valve Pulmonic valve not well visualized. No pulmonary valve stenosis. No pulmonary valve regurgitation. Pericardium No pericardial effusion. Aorta Normal sized aortic root. CONCLUSIONS 1. Mildly increased left ventricular cavity size. Moderately decreased left ventricular systolic function. Left ventricular ejection fraction is estimated at 30-35 %. There is severe hypokinesis of anteroseptal, inferoseptal, apical septal and apical daily. There is relative sparing of basal anterolateral and inferolateral daily. Grade I diastolic dysfunction (abnormal relaxation filling pattern), normal to mildly elevated filling pressures. 2. When compared to previous study report dated 02/05/2018, the left ventricular systolic function may have decreased somewhat. Jaqueline Gross MD (Electronically Signed) Final Date: 06 July 2021 06:56 S
--- NOTE | 2021-07-05 13:40 | USCV_ITS ---
Sebastien Martinez Age: 55 Gender: M : 1965 Exam Date: 07/05/2021 14:45 Ordering Phys: Segundo Olmstead MD Technologist: Alvin Kent [place] [facility] [place]: dizzy arm numb Risk Factors: Previous Vascular Surgery: Right Brachial BP: / Left Brachial BP: / Right Left Velocity (cm/s) Spectral Plaque Velocity (cm/s) Spectral Plaque Syst/Diast Broadening Syst/Diast Broadening 69.50/ 14.30 Prox CCA 85.40 / 18.40 79.40/ 17.60 Mid CCA 89.40 / 22.30 82.70/ 19.80 Homo Distal CCA 82.80 / 17.10 Homo 60.00/ 17.00 Homo Prox ICA 51.30 / 11.50 Homo 73.60/ 23.20 Mid ICA 45.10 / 8.00 51.80/ 19.10 Distal ICA 54.00 / 19.50 71.50 ECA 72.10 0.89 ICA/CCA 0.60 Antegrade Vertebral Antegrade 46.70/ 11.20 cm/s 34.50/ 7.10 cm/s Tri Subclavian Tri 138.0 69.90 0 CONCLUSIONS Right ICA stenosis <50%. Mild atheromatous plaque right carotid bulb/ICA. Left ICA stenosis <50%. Mild atheromatous plaque left carotid bulb/ICA. Normal antegrade Doppler flow noted in the right vertebral artery. Normal antegrade Doppler flow noted in the left vertebral artery. Serg Nicole MD (Electronically Signed) Final Date: 05 July 2021 15:50 S
--- NOTE | 2021-07-05 13:40 | XR_ITS ---
WS: [id number] CHEST XRAY TECHNIQUE: Portable chest. CLINICAL INFORMATION: CVA symptoms COMPARISON: June 04, 2021 FINDINGS: Heart: Normal cardiac silhouette. Lungs: No acute pulmonary infiltrates. No consolidation or pleural effusion. Suspected calcified gran ulomas LEFT upper lobe. Bones: Normal visualized bony structures. XR/XR chest 1V portable [id number] IMPRESSION: No acute chest findings
[2021-07-05 15:22] LABS: Adenovirus Not Detected (NOT DETECT); Chlamydia Pneumoniae Not Detected (NOT DETECT); Coronavirus 229E,HKU1,NL63,OC4 Not Detected (NOT DETECT); Human Metapneumovirus Not Detected (NOT DETECT); Human Rhinovirus/Enterovirus Not Detected (NOT DETECT); Influenza A Not Detected (NOT DETECT); Influenza A H1 Not Detected (NOT DETECT); Influenza A H1-2009 Not Detected (NOT DETECT); Influenza A H3 Not Detected (NOT DETECT); Influenza B Not Detected (NOT DETECT); Mycoplasma Pneumoniae Not Detected (NOT DETECT); Parainfluenza Virus Type 1 Not Detected (NOT DETECT); Parainfluenza Virus Type 2 Not Detected (NOT DETECT); Parainfluenza Virus Type 3 Not Detected (NOT DETECT); Parainfluenza Virus Type 4 Not Detected (NOT DETECT); Respiratory Syncytial Virus A Not Detected (NOT DETECT); Respiratory Syncytial Virus B Not Detected (NOT DETECT); SARS-COV-2 Not Detected (NOT DETECT)
[2021-07-05 15:25] LABS: Influenza A Not Detected (NOT DETECT); Influenza A H1 Not Detected (NOT DETECT); Influenza A H1-2009 Not Detected (NOT DETECT); Influenza A H3 Not Detected (NOT DETECT); Influenza B Not Detected (NOT DETECT); Results from Genmark
[2021-07-05] MEDS: sodium chloride 0.9% 1,000 ML 50 ML IV (15:25)
[2021-07-05] MEDS: enoxaparin 40 mg/0.4 mL Syringe SUBCUT (15:25)
[2021-07-05 17:01] LABS: Glucose Point of Care 165 mg/dL (70-110)
--- NOTE | 2021-07-05 17:22 | P.CONIM_ITS ---
Providers/Reason For Consult Consulting Physician/Specialty*: Wing Olmstead MD Reason for Consult*: Right hemisphere edema Requesting Physician: Dr. Cui Attending Physician: Segundo Olmstead MD Primary Care Provider: Marcelo Lester DO History of Present Illness History of Present Illness Sebastien Martinez is a 55 year old man who came to the emergency department on 06/30/2021 complaining of generalized weakness. He went to his cardiology appointment on 06/29 complaining of fatigue and by the following day he went to the ER complaining of generalized weakness. He was really weak in both legs. He thought if he got started back on his heart medicine he would be better but he was not. His legs felt heavy. He did not have any focal findings. His laboratory studies were unremarkable and he was sent home only to return today, a week later, with left-sided weakness. He was experiencing numbness and tingling on the left side. His CT scan of the head showed edema. MRI showed right hemisphere edema. He has an ischemic cardiomyopathy and at one point had an ejection fraction of 35% prior to multiple stents. His says that he has been weak on the left side since he came to the emergency department 06/30. He started having pain in the right side of his head maybe a week ago. She has not noticed any changes in his vision. His personality is always somewhat boisterous and he is absolutely no different from baseline. His left-sided weakness is no worse this evening than it was this morning. He developed severe pain in his right arm a couple of months ago. The pain is excruciating. He was diagnosed with carpal tunnel and ulnar neuropathy by Dr. Coburn and was planned to have surgery next week. He had ST elevation PR in the distribution of LAD and his ejection fraction was 35%. He had 4 stents. He has not had a recent echocardiogram. Review of Systems General: Reports: 10 or more systems reviewed and unremarkable except in HPI and below Const: Reports: body aches, fatigue and malaise; Denies: fever(s), chills or change in weight Eyes: Reports: eye discomfort (Headache on the right a week ago); Denies: change in vision, blurry vision or blind spots ENMT: Denies: throat pain Card: Denies: chest pain, palpitations, irregular heart rhythm or dyspnea on exertion Resp: Denies: dyspnea GI: Denies: abdominal pain, nausea or vomiting Musc: Reports: extremity pain Neuro: Reports: headache(s), numbness in extremities, weakness in extremities and sensory changes; Denies: difficulty walking, frequent falls, dizziness, confusion, behavioral changes, Slurred speech present, difficulty communicating thoughts, seizure-like activity or involuntary movements Endo: Reports: polyuria, polydipsia, tired all the time and cold intolerance Emiliano/Lymph: Denies: easy bruising or easy bleeding All/Imm: Denies: urticaria Medications/Allergies Home Medications Medication Instructions Recorded Confirmed Last Taken Type aspirin 81 mg tablet,delayed 81 mg PO DAILY 11/18/19 07/05/21 07/04/21 History release furosemide 20 mg tablet 20 mg PO DAILY #90 tab 11/25/19 07/05/21 06/29/21 Rx ticagrelor 90 mg tablet (Brilinta) 90 mg PO BID #180 tab 11/25/19 07/05/21 07/04/21 Rx carvedilol 6.25 mg tablet (Coreg) 6.25 mg PO BID 90 Days #180 tab 06/29/21 07/05/21 06/30/21 Rx diphenoxylate-atropine 2.5 1 tab PO DAILY PRN 06/30/21 07/05/21 06/29/21 History mg-0.025 mg tablet (Lomotil) insulin glargine 100 unit/mL (3 20 unit SUBCUT BEDTIME 06/30/21 07/05/21 07/04/21 History mL) subcutaneous pen (Lantus Solostar U-100 Insulin) insulin lispro 100 unit/mL 9 unit SUBCUT TID 06/30/21 07/05/21 07/04/21 History subcutaneous pen (Humalog KwikPen (U-100) Insulin) Probiotic Gummies 1 tab PO DAILY 07/05/21 07/05/21 07/04/21 History Vitamin D Gummies 1 tab PO DAILY 07/05/21 07/05/21 07/04/21 History meclizine 25 mg tablet 25 mg PO DAILY PRN 07/05/21 07/05/21 Unknown History Allergies Allergy/AdvReac Type Severity Reaction Status Date / Time No Known Allergies Allergy Verified 07/05/21 07:53 Current Medications Generic Name Dose Route Start Last Admin Trade Name Ira PRN Reason Stop Dose Admin Enoxaparin Sodium 40 mg 07/05/21 14:30 07/05/21 15:25 Enoxaparin 40 Mg/0.4 Ml Syringe SUBCUT 40 mg Q24H NIRALI Administration Sodium Chloride 1,000 mls @ 50 mls/hr 07/05/21 13:40 07/05/21 15:25 Sodium Chloride 0.9% IV 50 mls/hr .Q20H NIRALI Administration Insulin Human Lispro 0 unit 07/05/21 12:00 07/05/21 12:43 Insulin Lispro 100 Unit/1 Ml SUBCUT 6 unit WM&BEDTIME NIRALI Administration Protocol PFSH Acute PFSH: Medical History (Updated 07/05/21 @ 18:47 by Iveth Thomas MD) CAD (coronary artery disease) Has had stents in RCA, LAD, circumflex with last procedure being angioplasty LAD stent 2018 Congestive heart failure Last ejection fraction 35%. Diabetes mellitus Dyslipidemia History of heart attack Hypertension associated with type 2 diabetes mellitus Ischemic cardiomyopathy Palmar fascial fibromatosis [dupuytren] Surgical History (Updated 07/05/21 @ 10:20 by Segundo Olmstead MD) History of coronary angiogram History of eye surgery Family History (Updated 07/05/21 @ 10:20 by Segundo Olmstead MD) Other CAD (coronary artery disease) Diabetes Social History Smoking and tobacco status: never smoked Alcohol intake: never Vitals/I&O/Wt Last Vital Signs Temp 98.0 F 07/05/21 16:00 Pulse 87 07/05/21 16:00 Resp 18 07/05/21 16:00 BP 110/68 07/05/21 16:00 Pulse Ox 96 07/05/21 16:00 07/05/21 07/05/21 07/05/21 06:59 14:59 22:59 Intake Total 120 / 120 Balance 120 / 120 Weight last 48 hrs Weight 160 lb Physical Exam Narrative: GENERAL: The patient was thin laying in his hospital bed turned to the left MENTAL STATUS: He complains about everything. He has a moaning attitude. He is not aprosodia. His speech was clear. He followed commands after protest. His says that this is his baseline personality. CRANIAL NERVES: I think he has a left lower quadrantanopsia. He definitely has visual extinction in the left lower quadrant. Face was symmetric. Eye movements full with no gaze preference. Tongue and palate midline. No dysarthria. MOTOR: No drift. Subjectively he is weak on the left. He shrieks if I touch his right arm below the elbow and has excruciatingly slow fine movements in the right hand. SENSATION: He cannot stand to be touched in the right arm below the elbow. He perceives pin on the left side but touch is reduced on the left. COORDINATION: I do not appreciate any tremor. No myoclonus. DEEP TENDON REFLEXES: [2/4 throughout.] Plantar response indeterminate. GAIT: The patient was able to get up from the chair w and stood at the bedside without falling over. He could stand with his feet together without falling. HEENT: Normocephalic without dysmorphic features. Conjunctivae were not injected and sclerae were nonicteric. NECK: Carotid upstroke was strong bilaterally without bruits. The thyroid was not enlarged and there were no palpable lymph nodes. CHEST: Clear to auscultation. CARDIOVASCULAR: The heart sounds were normal without murmur or gallop. Regular rate and rhythm. I cannot appreciate a brachial or radial pulse in the right arm. EXTREMITIES: Severe tenderness in the right arm. Capillary refill appears symmetric. Data : 07/05/21 05:54 07/05/21 05:54 Other data: MRI brain shows diffuse edema involving the middle cerebral artery posterior branch distribution with diffuse petechial hemorrhage throughout the right temporal and parietal regions. There are punctate regions of restricted diffusion in the splenium of the corpus callosum and the tip of the right occipital lobe. A&P Assessment and plan (1) Encephalitis: I think he has had a posterior branch right middle cerebral artery stroke. I think it probably happened a week ago and that he is exhibiting luxury perfusion in the distribution of the ischemia. Differential diagnosis includes en cephalitis but he does not have the extreme neurologic symptoms that would be expected if this were herpes encephalitis or limbic encephalitis. We must be concerned about cerebral angiitis as well because of the diffuse petechia but this may just be an embolic stroke a week old. I am concerned about cardiac origin for stroke. plan Anti-hu (DRG), anti Ma- not consistent with symptoms, NMDA (psych, sleep, memory, seizures). oligoclonal bands Routine laboratory studies for spinal fluid and tube 4 remainder saved for further studies if needed MR angiogram in the morning. Recommend SIMIN and transthoracic echocardiogram. 20-day monitor. Status: Acute (2) Ischemic cardiomyopathy: Status: Acute (3) Left hemiparesis: Status: Acute (4) Acute right arterial ischemic stroke, middle cerebral artery (MCA): Status: Acute (5) Ischemia of right upper extremity: Status: Acute Coding Level of Care Code Acute Nursing Education Consultant for 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 Diagnoses Encephalitis G04.90 Ischemic cardiomyopathy I25.5 Left hemiparesis G81.94 Acute right arterial ischemic stroke, middle cerebral artery (MCA) I63.511 Ischemia of right upper extremity I99.8
[2021-07-05] MEDS: morphine 4 mg/mL SDV 1 mL IVP (18:21)
[2021-07-05 18:37] LABS: HIV 1 & 2 Antibody Non-Reactive (Non-Reactiv); HIV 1 & 2 Antigen Non-Reactive (Non-Reactiv)
[2021-07-05 20:06] LABS: CSF Mononuclear # 0.005 10^3/uL (50-90); Mononuclear WBC CSF % 100 % (50-90); Polynuclear WBC CSF % 0 % (0-10); Red Blood Cell CSF 0 10^3/uL (0-0); White Blood Cell CSF 5 /uL (0-5)
[2021-07-05 20:50] LABS: Appearance CSF CLEAR (CLEAR); Color CSF COLORLESS (COLORLESS); Glucose CSF 119 mg/dL (40-70)
[2021-07-05 21:01] LABS: Glucose Point of Care 150 mg/dL (70-110)
[2021-07-06 04:00] VITALS: BP 147/84; PULSE 99; RESP 16; TEMP 36.5; O2SAT 98
[2021-07-06 05:15] LABS: Basophils % 0.4 %; Eosinophils # 0.1 10^3/uL (0.0-0.8); Hematocrit 46.1 % (42.0-52.0); Hemoglobin 15.2 g/dL (11.7-16.6); Lymphocytes # 1.7 10^3/uL (0.8-4.8); Lymphocytes % 21.5 %; Mean Corpuscular Hemoglobin 32.3 pg (28.0-34.0); Mean Corpuscular Volume 97.9 fl (80-94); Mean Platelet Volume 9.8 fL (7.4-10.4); Monocytes # 0.8 10^3/uL (0.2-0.9); Monocytes % 10.4 %; Neutrophils # 5.29 10^3/uL (1.8-7.7); Neutrophils % 66.4 %; Nucleated Red Blood Cells % 0 %; Platelet Count 244 10^3/cmm (130-400); Red Blood Count 4.71 10^6/uL (4.1-5.3); Red Cell Distribution Width 11.2 % (12.1-15.1)
[2021-07-06 05:38] LABS: Alanine Aminotransferase 12 U/L (0-41); Albumin Level 3.9 g/dL (3.5-5.2); Alkaline Phosphatase 85 IU/L (40-130); Aspartate Amino Transferase 20 U/L (0-40); Blood Urea Nitrogen 27 mg/dL (6-20); Calcium 8.1 mg/dL (8.5-10.5); Carbon Dioxide 19 mmol/L (22-29); Chloride 100 mmol/L (98-107); Globulin 2.7 g/dL (1.3-4.6); Glomerular Filtration Rate 35.1 mL/min (90-130); Glucose 198 mg/dL (65-115); Magnesium 2.1 mg/dL (1.7-2.3); Osmolality Calculated 289 mOsm/kg (285-295); Sodium 134 mmol/L (136-145); Total Bilirubin 0.8 mg/dL (0.15-1.2); Total Protein 6.6 g/dL (6.6-8.7)
[2021-07-06 05:39] LABS: Anion Gap 19.6 (5-19); Potassium 4.6 mmol/L (3.5-5.1)
[2021-07-06 06:23] LABS: Glucose Point of Care 185 mg/dL (70-110)
--- NOTE | 2021-07-06 07:06 | PC.NURSE ---
Unable to obtain UA this shift 07-05 7p-7a; Pt stated I don't urinate very much Pt refused bladder scan. Report given to MAKEDA Ballard
--- NOTE | 2021-07-06 07:13 | MR_ITS ---
WS: [id number] MRA ANGIOGRAPHY [place] [facility] [facility] [place] HISTORY: encephalitis, possible vasculitis COMPARISON: None available. TECHNIQUE: 3-D MR angiography is performed of the [place]. All images are reviewed including source images. Contrast: MultiHance 20 cc IV. Distal vertebral arteries and the basilar artery are normal caliber. No strictures or areas of dilata tion. Posterior cerebral arteries involving the P1 and P2 segments are normal. Posterior communicatin g arteries are not very well visualized. This may be due to motion artifact. Intracranial carotid arteries are normal caliber. Anterior cerebral arteries are normal caliber. Ante rior communicating artery is normal. M1 segments bilaterally are normal. M2, M3 and M4 segments on the LEFT are normal. The RIGHT M1 and m ajority of the M2 segments are normal. The distal RIGHT M2 segments are becoming smaller caliber. The M3 and M4 segments are being displaced by brain edema as seen on the prior MRI. The distal cerebral arteries in the RIGHT middle cerebral artery territory are very small caliber. The daily are hazy and are small areas of stricture and possible areas of dilatation. There is mild displacement of the cer ebral arteries and the abnormal RIGHT parietal and temporal lobes. MR/MR angio head wo con [id number] IMPRESSION: 1. Abnormal caliber with areas of strictures involving the RIGHT distal M2, M3 and M4 segments. This is in the area of the previously described brain abnorma lity on 07/05/2021 involving the temporal and parietal lobes. Highly suspicious for vasculitis. Numerous causes of vasculitis to consider include, meningitis, infectious, collagen vascular, drug abuse and autoimmune. 2. No aneurysms are identified.
[2021-07-06 07:36] LABS: Creatine Phosphokinase 77 U/L (39-308)
[2021-07-06 08:00] VITALS: BP 134/79; PULSE 94; RESP 18; O2SAT 94
--- NOTE | 2021-07-06 08:07 | USCV_ITS ---
Sebastien Martinez Age: 55 Gender: M : 1965 Exam Date: 07/06/2021 08:37 Ordering Phys: Segundo Olmstead MD Technologist: Alvin Kent Exam Location: [facility] – [place] Indication: poor pulses rt arm Risk Factors: Previous Vascular Surgery: Right BP: / Left BP: / RIGHT LEFT PSV PSV (cm/s) (cm/s) Waveform Waveform Triphasic 120.0 Subclavian Proximal Triphasic 66.0 Axillary Triphasic 72.0 Brachial Mid Triphasic 101.0 Radial Mid Triphasic 122.0 Ulnar Mid 1.0 Radial/Brachial Index 1.0 Ulnar/Brachial Index FINDINGS Normal arterial Doppler flow velocities Normal radial brachial and ulnar brachial indicis CONCLUSIONS Patent right upper extremity arteries with a normal Doppler flow pattern. No evidence of stenosis. Dr Liza Steward MD [facility] (Electronically Signed) Final Date: 06 July 2021 17:47 S
--- NOTE | 2021-07-06 08:37 | P.PN_ITS ---
Subjective Subjective: There has been no change in his neurologic state. He is keeping his head under the covers this morning. He did not like the food last evening. No headache. He is not communicative. He is scheduled for MRA today. Vitals/I&O/Wt Last Vital Signs Temp 97.7 F 07/06/21 04:00 Pulse 94 07/06/21 08:00 Resp 18 07/06/21 08:00 BP 134/79 07/06/21 08:00 Pulse Ox 94 07/06/21 08:00 07/05/21 07/06/21 07/06/21 22:59 06:59 14:59 Intake Total 774.4 / 894.4 114.4 / 1008.8 Balance 774.4 / 894.4 114.4 / 1008.8 Weight last 48 hrs Weight 160 lb Physical Exam Narrative: He keeps his head under the covers and does not communicate. His was kind enough to visit with me. He is moving all 4 extremities well. Data : 07/06/21 04:29 07/06/21 04:29 Micro: Microbiology 07/05/21 18:43 Cryptococcal Antigen - Final Cerebrospinal Fluid Other data: CSF glucose 119, protein 0. 5 white cells with no red cells, 100% monos. Extensive testing for encephalitis pending. A&P Assessment and plan (1) Acute right arterial ischemic stroke, middle cerebral artery (MCA): I went over his images with the neuroradiologist. These findings on MRI are consistent with a stroke that may have started a week ago. He also has several punctate lesions in the posterior cerebral artery distribution on the right and mid corpus callosum. Consider a cardiac source. His echo shows a 35% ejection fraction. His spinal fluid is not inflammatory but MRA is scheduled for today to rule out vasculitis. Renal function deteriorated check for renal emboli. Transesophageal echo planned. Case discussed with Dr. Olmstead. I met with the patient and his and took time to answer questions. Status: Acute Attestations Medical Necessity Statement*: Acute right middle cerebral artery stroke with atypical features and multiple embolic lesions needing acute and extensive work- up. Time Spent in Patient Care: 30 min Coding Level of Care Code Acute Gambling Box Person for 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 Diagnoses Acute right arterial ischemic stroke, middle cerebral artery (MCA) I63.511
[2021-07-06] MEDS: aspirin 81 mg EC Tablet PO (08:51)
[2021-07-06] MEDS: pantoprazole DR 40 mg Tablet PO (08:51)
[2021-07-06] MEDS: ticagrelor 90 mg Tablet PO ×2 (08:51→17:25)
[2021-07-06] MEDS: HYDROcodone-acetaminophen 5-325 mg Tablet 1 TAB PO (08:51)
[2021-07-06] MEDS: heparin 5,000 unit/mL INJ 1 mL 5000 UNIT SUBCUT ×2 (08:51→18:32)
[2021-07-06] MEDS: atorvastatin 40 mg Tablet PO (08:51)
--- NOTE | 2021-07-06 08:55 | US_ITS ---
WS: [id number] ULTRASOUND RENAL TECHNIQUE: Ultrasound examination of both kidneys. CLINICAL INFORMATION: renal failure COMPARISON: None. FINDINGS: RIGHT: Right kidney is normal in size and appearance. Echogenicity: Normal. Hydronephrosis: None. Perinephric fluid: None. Right kidney measures: 10.5 cm x 4.8 cm x 5.3 cm. LEFT: Left kidney is normal in size and appearance. Echogenicity: Normal. Hydronephrosis: None. Perinephric fluid: None. Left kidney measures: 9.1 cm x 4.3 cm x 5.1 cm. Normal visualized aorta. Normal bladder US/US renal BI* [id number] IMPRESSION: Normal kidneys and bladder
--- NOTE | 2021-07-06 08:56 | P.PN_ITS ---
Subjective Subjective: Sebastien is able to get up with no vomiting. Case discussed with neurology, and this appears to be a CVA. MRI will be done today to rule out vasculitis. Consideration for discontinuing acyclovir and stopping encephalitis studies on CSF should MRI not delineate anything new. Patient reports he is urinating okay, and does not feel that he is having difficulty emptying his bladder. Medications: Reviewed: Yes Vitals/I&O/Wt Last Vital Signs Temp 97.7 F 07/06/21 04:00 Pulse 94 07/06/21 08:00 Resp 18 07/06/21 08:00 BP 134/79 07/06/21 08:00 Pulse Ox 94 07/06/21 08:00 07/05/21 07/06/21 07/06/21 22:59 06:59 14:59 Intake Total 774.4 / 894.4 114.4 / 1008.8 Balance 774.4 / 894.4 114.4 / 1008.8 Weight last 48 hrs Weight 72.575 kg Physical Exam Narrative: General exam is a white male, anxious but in noticed Neck is supple Cardiovascular regular rate and rhythm without murmur, no S3 or S4 Lungs clear no wheezing or crackles Abdomen is soft nontender positive bowel sounds no obvious hepatosplenomegaly Extremities no cyanosis clubbing or edema. It is difficult to feel his right radial pulse, brought to light by neurology. Neurologic exam unchanged. Still decreased sensation left side. Data : 07/06/21 04:29 07/06/21 04:29 Other Labs: CSF studies are reviewed Micro: Microbiology 07/05/21 18:43 Cryptococcal Antigen - Final Cerebrospinal Fluid A&P Assessment and plan (1) Left hemiparesis: Etiology now appears to be CVA. If MRA to rule out vasculitis does not suggest otherwise we will discontinue acyclovir and encephalitis studies. CSF studies reviewed. Unlikely to have bacterial infection. Echocardiogram shows EF of 35%, no thrombus Carotid duplex demonstrates no surgical, flow-limiting stenosis. Continue Brilinta, aspirin. Change Lovenox to subcutaneous heparin for DVT prophylaxis Continue hydration Consult cardiology for SIMIN Will need event monitor on discharge Continue telemetry. No evidence of atrial fibrillation currently. Continue OT and PT consultations Status: Acute (2) Congestive heart failure: Currently appears compensated. Echocardiogram demonstrates EF of approximately 35% Hold Lasix currently. Creat worse. Recheck tomorrow Status: Acute (3) CAD (coronary artery disease): Continue Brilinta, aspirin. Continue statin Continue carvedilol, lower dose as still concerned about possible vascular etiology of MRI appearance.(Permissive hypertension to be allowed) Status: Acute (4) Diabetes mellitus: Sliding scale insulin Status: Acute (5) Hypertension: Allow for some permissive hypertension Carvedilol dose will be reduced Status: Acute Plan Acute kidney injury. Avoid renal toxic medication. Continue hydration. Diet initiated. Recheck tomorrow. Check renal ultrasound, postvoid residual. Check CK to rule out rhabdomyolysis. Difficulty with right radial pulse palpation. Arterial duplex will be done. Full code Heparin for DVT prophylaxis Attestations Medical Necessity Statement*: Needs continued hospitalization, for further work-up of hemiparesis as well as CVA to rule out embolic disease. Coding Level of Care Code Acute Founder [employer] Ceo for Bettye Blancod Diagnoses Left hemiparesis G81.94 Congestive heart failure I50.9 CAD (coronary artery disease) I25.10 Diabetes mellitus E11.9 Hypertension I10
[2021-07-06] MEDS: insulin lispro 100 unit/1 mL SUBCUT ×3 (08:59→17:25)
[2021-07-06] MEDS: LORazepam 2 mg/mL INJ 1 mL IVP ×2 (10:05→10:06)
[2021-07-06 11:29] LABS: Glucose Point of Care 188 mg/dL (70-110)
[2021-07-06] MEDS: acetaminophen 325 mg Tablet 650 MG PO (11:43)
--- NOTE | 2021-07-06 11:49 | P.CONIM_ITS ---
Providers/Reason For Consult Consulting Physician/Specialty*: Mainor Bellamy MD/Cardiology Reason for Consult*: Stroke/need for SIMIN Requesting Physician: Dr Olmstead Attending Physician: Segundo Olmstead MD Primary Care Provider: Marcelo Lester DO History of Present Illness History of Present Illness Sebastien Martinez is a 55 year old male with past medical history of ischemic cardiomyopathy and known EF of 35% who presented with the more than 1 week of symptoms of fatigue with predominantly left-sided symptoms of numbness, tingling and weakness. He was diagnosed with stroke with neurology opinion that it could be embolic in nature. Cardiology was consulted for transesophageal echocardiogram and medical management of his cardiac meds. Patient does not want to give much history today. His family was at bedside who gives the history. Transthoracic echocardiogram performed yesterday shows LVEF of 30 to 35%. His creatinine has worsened today to 2 from baseline of 1 He is able to swallow okay. Review of Systems General: Reports: 10 or more systems reviewed and unremarkable except in HPI and below Const: Denies: fever(s) Eyes: Denies: change in vision ENMT: Denies: throat pain Card: Denies: chest pain Resp: Denies: dyspnea GI: Reports: nausea : Reports: flank pain Musc: Denies: neck pain Skin/Breast: Denies: rash Neuro: Reports: headache(s), numbness in extremities, weakness in extremities, sensory changes and difficulty walking Psych: Denies: anxiety or depression Endo: Denies: polyuria Emiliano/Lymph: Denies: easy bruising All/Imm: Denies: urticaria Medications/Allergies Home Medications Medication Instructions Recorded Confirmed Last Taken Type aspirin 81 mg tablet,delayed 81 mg PO DAILY 11/18/19 07/05/21 07/04/21 History release furosemide 20 mg tablet 20 mg PO DAILY #90 tab 11/25/19 07/05/21 06/29/21 Rx ticagrelor 90 mg tablet (Brilinta) 90 mg PO BID #180 tab 11/25/19 07/05/21 07/04/21 Rx carvedilol 6.25 mg tablet (Coreg) 6.25 mg PO BID 90 Days #180 tab 06/29/21 07/05/21 06/30/21 Rx diphenoxylate-atropine 2.5 1 tab PO DAILY PRN 06/30/21 07/05/21 06/29/21 History mg-0.025 mg tablet (Lomotil) insulin glargine 100 unit/mL (3 20 unit SUBCUT BEDTIME 06/30/21 07/05/21 07/04/21 History mL) subcutaneous pen (Lantus Solostar U-100 Insulin) insulin lispro 100 unit/mL 9 unit SUBCUT TID 06/30/21 07/05/21 07/04/21 History subcutaneous pen (Humalog KwikPen (U-100) Insulin) Probiotic Gummies 1 tab PO DAILY 07/05/21 07/05/21 07/04/21 History Vitamin D Gummies 1 tab PO DAILY 07/05/21 07/05/21 07/04/21 History meclizine 25 mg tablet 25 mg PO DAILY PRN 07/05/21 07/05/21 Unknown History Allergies Allergy/AdvReac Type Severity Reaction Status Date / Time Opioids - Morphine Analogues AdvReac Mild Unknown Verified 07/06/21 14:04 Current Medications Generic Name Dose Route Start Last Admin Trade Name Freq PRN Reason Stop Dose Admin Acetaminophen 650 mg 07/05/21 13:40 07/06/21 11:43 Acetaminophen 325 Mg Tablet PO 650 mg Q6H PRN Administration Mild/Mod Pain Or Temp >/= 101 Hydrocodone Bitart/Acetaminophen 1 tab 07/06/21 08:01 07/06/21 08:51 Hydrocodone-Acetaminophen 5-325 Mg Tablet PO 1 tab Q4H PRN Administration MODERATE PAIN Aspirin 81 mg 07/06/21 09:00 07/06/21 08:51 Aspirin 81 Mg Ec Tablet PO 81 mg DAILY NIRALI Administration Atorvastatin Calcium 40 mg 07/06/21 09:00 07/06/21 08:51 Atorvastatin 40 Mg Tablet PO 40 mg DAILY NIRALI Administration Heparin Sodium (Porcine) 5,000 unit 07/06/21 07:30 07/06/21 08:51 Heparin 5,000 Unit/Ml Inj 1 Ml SUBCUT 5,000 unit Q12H NIRALI Administration Sodium Chloride 1,000 mls @ 50 mls/hr 07/05/21 13:40 07/06/21 09:53 Sodium Chloride 0.9% IV 0 mls/hr .Q20H NIRALI Infusion Insulin Human Lispro 0 unit 07/05/21 12:00 07/06/21 11:45 Insulin Lispro 100 Unit/1 Ml SUBCUT 4 unit WM&BEDTIME NIRALI Administration Protocol Ondansetron HCl 4 mg 07/05/21 13:40 07/05/21 22:03 Ondansetron 2 Mg/Ml Sdv 2 Ml IVP 4 mg Q6H PRN Administration vomiting, or N/V if npo Pantoprazole Sodium 40 mg 07/06/21 09:00 07/06/21 08:[address] 40 Mg Tablet PO 40 mg DAILY NIRALI Administration Ticagrelor 90 mg 07/05/21 18:00 07/06/21 08:51 Ticagrelor 90 Mg Tablet PO 90 mg BID NIRALI Administration PFSH Acute PFSH: Medical History CAD (coronary artery disease) Has had stents in RCA, LAD, circumflex with last procedure being angioplasty LAD stent 2018 Congestive heart failure Last ejection fraction 35%. Diabetes mellitus Dyslipidemia History of heart attack Hypertension associated with type 2 diabetes mellitus Ischemic cardiomyopathy Palmar fascial fibromatosis [dupuytren] Surgical History History of coronary angiogram History of eye surgery Family History Other CAD (coronary artery disease) Diabetes Social History Smoking and tobacco status: never smoked Alcohol intake: never Vitals/I&O/Wt Last Vital Signs Temp 97.7 F 07/06/21 04:00 Pulse 94 07/06/21 08:00 Resp 18 07/06/21 08:00 BP 134/79 07/06/21 08:00 Pulse Ox 94 07/06/21 08:00 07/05/21 07/06/21 07/06/21 22:59 06:59 14:59 Intake Total 774.4 / 894.4 114.4 / 1008.8 1223.333 / 1223.333 Output Total 600 / 600 Balance 774.4 / 894.4 114.4 / 1008.8 623.333 / 623.333 Weight last 48 hrs Weight 160 lb Physical Exam Narrative: GENERAL: Patient is alert, awake and oriented x3. [] NECK: No jugular vein distension. [] HEENT: No cyanosis. No icterus. No pallor. [] HEART: Regular S1 and S2. No murmur, rub or gallop. [] LUNGS: Clear to auscultate bilaterally. [] ABDOMEN: Soft, nontender and nondistended. Positive bowel sounds. No guarding, rebound or tenderness. [] CENTRAL NERVOUS SYSTEM: Has decreased sensation on the left side. Data : 07/06/21 04:29 07/06/21 04:29 Micro: Microbiology 07/05/21 18:43 Gram Stain - Final Cerebrospinal Fluid Cryptococcal Antigen - Final A&P Assessment and plan (1) Hypertension associated with type 2 diabetes mellitus: Status: Acute (2) Dyslipidemia: Status: Acute (3) Congestive heart failure: Status: Acute (4) CAD (coronary artery disease): Status: Acute (5) Ischemic cardiomyopathy: Status: Acute (6) Diabetes mellitus: Status: Acute (7) Stroke: Status: Acute Plan Patient has presented with stroke. This likely is embolic in nature per neurology evaluation. Transesophageal echocardiogram has been recommended. We will proceed with it tomorrow. Procedure discussed with patient and family. They are in agreement. Continue aspirin and Brilinta. Continue Coreg at current dose. Once his renal function normalizes, Entresto can be added. Low-sodium diet advised Q for involving us with care of this patient. We will continue to follow. Please call with questions. Coding Level of Care Code Acute Filter Press Pumper for 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 Diagnoses Hypertension associated with type 2 diabetes mellitus E11.59; I15.2 Dyslipidemia E78.5 Congestive heart failure I50.9 CAD (coronary artery disease) I25.10 Ischemic cardiomyopathy I25.5 Diabetes mellitus E11.9 Stroke I63.9
[2021-07-06 11:50] VITALS: BP 124/75; PULSE 87; RESP 18; TEMP 36.8; O2SAT 95
--- NOTE | 2021-07-06 13:27 | PC.NURSE ---
Patient is refusing IVF at this time.
[2021-07-06 14:00] VITALS: PULSE 84
[2021-07-06 14:15] LABS: C Reactive Protein 12.2 mg/L (0.0-4.9)
--- NOTE | 2021-07-06 14:44 | PC.OT ---
OT TREATMENT ATTEMPTED IN A.M.; PATIENT WAS AT MRA AND THEN HAVING 2 ULTRASOUNDS. AT SECOND ATTEMPT; PATIENT IS RESTING SOUNDLY AND ASKS THAT WE HOLD OT EVALUATION TODAY AND ATTEMPT AGAIN TOMORROW.
[2021-07-06 15:28] LABS: Erythrocyte Sedimentation Rate 19 mm/hr (0-10)
[2021-07-06 15:42] VITALS: BP 129/70; PULSE 81; RESP 18; O2SAT 97
[2021-07-06 16:31] LABS: Protein Urine 2+ (Negative); Urine Appearance Clear (CLEAR); Urine Color Yellow (Yellow); pH Urine 5 (5-7)
[2021-07-06 16:32] LABS: Add Urine Microscopic? YES; Bilirubin Urine Neg (Negative); Blood Urine Neg (Negative); Glucose Urine UA 4+ (Normal); Ketones Urine 1+ (Negative); Leukocyte Esterase Urine Negative (Negative); Nitrate Urine Negative (Negative); Urobilinogen Urine Norm (Negative)
[2021-07-06 16:40] LABS: Add Urine Culture? No; Bacteria Urine TRACE /hpf; RBC Urine RARE /hpf (0-2); Squamous Epithelial Cell Urine 0-4 /hpf (0-5); WBC Urine RARE /hpf (0-5)
[2021-07-06 16:59] LABS: Glucose Point of Care 159 mg/dL (70-110)
--- NOTE | 2021-07-06 18:02 | PM.MISC ---
Miscellaneous Note Purpose of Documentation: Update with new findings Note: I talked with Dr. Olmstead earlier in the day. MR angiogram was abnormal showing abnormal caliber of the right distal M2, M3 and M4 segments in the distribution of the patient's brain edema and of concern for vasculitis. In patients with [employer]ST[employer] vasculitis, whether systemic or isolated to the INST[employer]ING, 80 to 90% have abnormal spinal fluid. He is patient's spinal fluid was nearly acellular with normal (high) glucose and a low protein. I was concerned about systemic vasculitis because of his severe pain in the right arm and absent pulse, but arterial Doppler was normal. Reversible vasoconstrictive syndrome is diagnosed based upon severe thunderclap type headache in association with focal brain edema and sometimes hemorrhage. This patient complained of on again off again headache but was not complaining of excruciating headache. It must be said that he is not the best historian. Are CVS is often more symmetric but may be unilateral and is associated with fewer neurologic findings on exam than vasculitis. Spinal fluid analysis is one of the ways to distinguish between [employer] vasculitis and RCVS, as CSF is normal in the latter It seems to me that the best plan continues to be cardiac work-up is planned, follow the patient clinically, and consider brain biopsy if strong consideration for PACNS continues. Unfortunately, brain biopsy is often nondiagnostic.
--- NOTE | 2021-07-06 18:19 | PC.NURSE ---
Patient pulled out IV, call to IV team in place to replace. Bedding changed and washed up patient as much as patient allowed. Patient continues to refuse IVF. Patient has been non-compliant in many aspects of care when is not present. is helpful in getting getting consent in care. Will continue to monitor and handoff patient at bedside report.
[2021-07-06 20:00] VITALS: BP 144/79; PULSE 92; RESP 18; TEMP 36.7; O2SAT 97
[2021-07-06 21:10] LABS: Glucose Point of Care 129 mg/dL (70-110)
[2021-07-07] VITALS (7 sets, daily range): BP systolic 117–160; BP diastolic 72–93; PULSE 88–110; RESP 14–18; TEMP 36.1–37.1; O2SAT 92–98
[2021-07-07 04:39] LABS: Basophils % 0.4 %; Eosinophils # 0.1 10^3/uL (0.0-0.8); Eosinophils % 1.7 %; Hematocrit 44.4 % (42.0-52.0); Hemoglobin 15.5 g/dL (11.7-16.6); Lymphocytes # 1.3 10^3/uL (0.8-4.8); Mean Corpuscular HGB Conc 34.9 g/dL (30.0-36.0); Mean Corpuscular Hemoglobin 32.5 pg (28.0-34.0); Mean Corpuscular Volume 93.1 fl (80-94); Mean Platelet Volume 9.7 fL (7.4-10.4); Monocytes # 0.5 10^3/uL (0.2-0.9); Monocytes % 6.8 %; Neutrophils # 5.43 10^3/uL (1.8-7.7); Neutrophils % 72.8 %; Nucleated Red Blood Cells % 0 %; Platelet Count 244 10^3/cmm (130-400); Red Blood Count 4.77 10^6/uL (4.1-5.3); Red Cell Distribution Width 11.2 % (12.1-15.1); White Blood Count 7.5 10^3/uL (4.0-10.0)
[2021-07-07 05:07] LABS: Blood Urea Nitrogen 29 mg/dL (6-20); Calcium 8.1 mg/dL (8.5-10.5); Carbon Dioxide 16 mmol/L (22-29); Chloride 102 mmol/L (98-107); Glomerular Filtration Rate 29.9 mL/min (90-130); Glucose 187 mg/dL (65-115); Osmolality Calculated 297 mOsm/kg (285-295); Sodium 138 mmol/L (136-145)
[2021-07-07 05:12] LABS: Anion Gap 24.6 (5-19); Potassium 4.6 mmol/L (3.5-5.1)
[2021-07-07] MEDS: sodium chloride 0.9% 1,000 ML 50 ML IV (05:44)
[2021-07-07 06:27] LABS: Glucose Point of Care 174 mg/dL (70-110)
[2021-07-07 07:57] LABS: Total Protein CSF < 20 mg/dL (15-45)
[2021-07-07] MEDS: insulin glargine 100 units/1 mL 5 UNIT SUBCUT (09:36)
[2021-07-07] MEDS: sodium chloride 0.9% 1,000 ML 30 ML IV (10:45)
--- NOTE | 2021-07-07 10:51 | P.ANESASSM_ITS ---
Pre-Anesthetic Assessment Height/Weight: Height 1.7 m Weight 72.575 kg Temp Pulse Resp BP Pulse Ox 97 F L 110 H 18 153/93 98 07/07/21 10:39 07/07/21 10:39 07/07/21 10:39 07/07/21 10:39 07/07/21 10:39 Preop Diagnosis: CVA Operation Date: 07/07/21 11:30 Proposed Procedures p SIMIN(Not Applicable) - Mainor Bellamy M.D Familial anesthetic complications: none Was Beta Carole taken within 24 hours: Yes Was Clonidine taken within 24 hours: N/A Last Intake: 22:00 Social No alcohol and No tobacco Exam alert, oriented x 3, clear to auscultation bilaterally and regular rate & rhythm Airway Submandibular: within normal limits Cervical ROM: within normal limits Mallampati: Class II Dentition: full Pulmonary Exertional Dyspnea CV/HEM Coronary Artery Disease, Congestive Heart Failure (EF 35%), Hypertension and Myocardial Infarction (PTCA 2018 LAD) None reported Hepatic None reported GI None reported Metabolic Diabetes Mellitus (avg 120's) Musc/skel Weakness (Left side weakness) Neuropsych Cerebrovascular Accident (ti) Anesthetic Plan ASA status: 3 Anesthesia: MAC Risk of > 500 ml blood loss (7ml/kg in children): No Medications/Allergies Home Medications Medication Instructions Recorded Confirmed Last Taken Type aspirin 81 mg tablet,delayed 81 mg PO DAILY 11/18/19 07/05/21 07/04/21 History release furosemide 20 mg tablet 20 mg PO DAILY #90 tab 11/25/19 07/05/21 06/29/21 Rx ticagrelor 90 mg tablet (Brilinta) 90 mg PO BID #180 tab 11/25/19 07/05/21 07/04/21 Rx carvedilol 6.25 mg tablet (Coreg) 6.25 mg PO BID 90 Days #180 tab 06/29/21 07/05/21 06/30/21 Rx diphenoxylate-atropine 2.5 1 tab PO DAILY PRN 06/30/21 07/05/21 06/29/21 History mg-0.025 mg tablet (Lomotil) insulin glargine 100 unit/mL (3 20 unit SUBCUT BEDTIME 06/30/21 07/05/21 07/04/21 History mL) subcutaneous pen (Lantus Solostar U-100 Insulin) insulin lispro 100 unit/mL 9 unit SUBCUT TID 06/30/21 07/05/21 07/04/21 History subcutaneous pen (Humalog KwikPen (U-100) Insulin) Probiotic Gummies 1 tab PO DAILY 07/05/21 07/05/21 07/04/21 History Vitamin D Gummies 1 tab PO DAILY 07/05/21 07/05/21 07/04/21 History meclizine 25 mg tablet 25 mg PO DAILY PRN 07/05/21 07/05/21 Unknown History Allergies Allergy/AdvReac Type Severity Reaction Status Date / Time Opioids - Morphine Analogues AdvReac Mild Unknown Verified 07/06/21 14:04 Current Medications Generic Name Dose Route Start Last Admin Trade Name Freq PRN Reason Stop Dose Admin Acetaminophen 650 mg 07/05/21 13:40 07/06/21 11:43 Acetaminophen 325 Mg Tablet PO 650 mg Q6H PRN Administration Mild/Mod Pain Or Temp >/= 101 Hydrocodone Bitart/Acetaminophen 1 tab 07/06/21 08:01 07/06/21 08:51 Hydrocodone-Acetaminophen 5-325 Mg Tablet PO 1 tab Q4H PRN Administration MODERATE PAIN Aspirin 81 mg 07/06/21 09:00 07/07/21 08:37 Aspirin 81 Mg Ec Tablet PO Not Given DAILY NIRALI Atorvastatin Calcium 40 mg 07/06/21 09:00 07/07/21 08:37 Atorvastatin 40 Mg Tablet PO Not Given DAILY NIRALI Heparin Sodium (Porcine) 5,000 unit 07/06/21 07:30 07/07/21 06:35 Heparin 5,000 Unit/Ml Inj 1 Ml SUBCUT Not Given Q12H NIRALI Sodium Chloride 1,000 mls @ 75 mls/hr 07/05/21 13:40 07/07/21 05:44 Sodium Chloride 0.9% IV 50 mls/hr .[id number] NIRALI Administration Sodium Chloride 1,000 mls @ 30 mls/hr 07/07/21 10:45 07/07/21 10:45 Sodium Chloride 0.9% IV 07/08/21 10:44 30 mls/hr .Q24H NIRALI Administration Insulin Human Lispro 0 unit 07/05/21 12:00 07/07/21 08:37 Insulin Lispro 100 Unit/1 Ml SUBCUT Not Given WM&BEDTIME [facility] Protocol Ondansetron HCl 4 mg 07/05/21 13:40 07/05/21 22:03 Ondansetron 2 Mg/Ml Sdv 2 Ml IVP 4 mg Q6H PRN Administration vomiting, or N/V if npo Pantoprazole Sodium 40 mg 07/06/21 09:00 07/07/21 08:[address] 40 Mg Tablet PO Not Given DAILY [facility] Ticagrelor 90 mg 07/05/21 18:00 07/07/21 08:37 Ticagrelor 90 Mg Tablet PO Not Given BID [facility] Anesthesia Medical History CAD (coronary artery disease) Has had stents in RCA, LAD, circumflex with last procedure being angioplasty LAD stent 2018 Congestive heart failure Last ejection fraction 35%. Diabetes mellitus Dyslipidemia History of heart attack Hypertension associated with type 2 diabetes mellitus Ischemic cardiomyopathy Palmar fascial fibromatosis [dupuytren] Surgical History History of coronary angiogram History of eye surgery Family History Other CAD (coronary artery disease) Diabetes Social History Smoking and tobacco status: never smoked Alcohol intake: never Data Anesthesia : 07/07/21 04:32 07/07/21 04:32 Short CBC 07/06/21 07/07/21 Range/Units 04:29 04:32 WBC 8.0 7.5 (4.0-10.0) 10^3/uL Hgb 15.2 15.5 (11.7-16.6) g/dL Hct 46.1 44.4 (42.0-52.0) % MCV 97.9 H 93.1 (80-94) fl Plt Count 244 244 (130-400) 10^3/cmm Neut % (Auto) 66.4 72.8 % Neut # (Auto) 5.29 5.43 (1.8-7.7) 10^3/uL BMP 07/06/21 07/07/21 04:29 04:32 Sodium 134 L 138 Potassium 4.6 4.6 Chloride 100 102 Carbon Dioxide 19 L 16 L BUN 27 H 29 H Creatinine 2.0 H 2.3 H Glucose 198 H 187 H Calcium 8.1 L 8.1 L Cardiac Enzymes 07/06/21 Range/Units 04:29 Creatine Kinase 77 (39-308) U/L Liver Function 07/06/21 Range/Units 04:29 Total Bilirubin 0.8 (0.15-1.2) mg/dL AST 20 (0-40) U/L ALT 12 (0-41) U/L Alkaline Phosphatase 85 (40-130) IU/L Albumin 3.9 (3.5-5.2) g/dL Urine 07/06/21 Range/Units 15:10 Urine Color Yellow (Yellow) Urine Appearance Clear (CLEAR) Urine pH 5 (5-7) Ur Specific [place] 1.020 (1.005-1.030) Urine Protein 2+ H (Negative) Urine Glucose (UA) 4+ H (Normal) Urine Ketones 1+ H (Negative) Urine Nitrate Negative (Negative) Urine Bilirubin Neg (Negative) Ur Leukocyte Esterase Negative (Negative) Urine RBC Rare (0-2) /hpf Urine WBC Rare (0-5) /hpf COVID Results 07/05/21 11:15 Coronavirus 229E (PCR) Not detected SARS-CoV-2 (PCR) Not detected Coags 07/06/21 07/06/21 04:29 11:40 ESR 19 H C-Reactive Protein 12.2 H Microbiology 07/05/21 18:43 Gram Stain - Final Cerebrospinal Fluid Cryptococcal Antigen - Final Cardiac Studies: Echocardiogram 07/05/21
--- NOTE | 2021-07-07 11:30 | USCV_ITS ---
Sebastien Martinez Age: 55 Gender: M : 1965 Exam Date: 07/07/2021 11:44 Ordering Phys: Mainor Bellamy M.D ([email or web address]) Technologist: CORNELIUS Exam Location: [facility] [place] Indication: BP: / HR: Rhythm: Sinus Technical Quality: MEASUREMENTS (Male / Female) Normal Values Medications Complications Proc. Components After anesthesia team administered anesthetics, we introduced the SIMIN probe and images were obtained. Bubble study was also performed to rule out interatrial shunt FINDINGS Left Ventricle LV systolic function appeats to be moderate to severely reduced Right Ventricle Normal size and function Right Atrium Normal in size Left Atrium Grossly normal LA Appendage No SON thrombus noted. IA Septum No shunting across the interatrial septum seen Mitral Valve Normal mitral valve Aortic Valve Normal Tricuspid Valve Normal tricuspid valve. Trace tricuspid regurgitation Pulmonic Valve Pericardium Normal Aorta Has mild atherosclerotic plaque CONCLUSIONS LV systolic function is moderate to severely reduced No SON thrombus. No intracardiac shunting noted. No significant valvular heart disease Mild atherosclerotic plaque Mainor Bellamy MD (Electronically Signed) Final Date: 10 July 2021 18:31 S
--- NOTE | 2021-07-07 11:39 | W.PM.OPSUD ---
Surgery/Procedure H&P Update DATE OF PROCEDURE: July 07, 2021 DATE H&P PERFORMED: 07/06/21 H&P UPDATE INFORMATION: I have reviewed H&P completed within last 30 days, I have examined patient prior to procedure and No changes to prior documentation PREOP DIAGNOSIS: CVA/possible embolic stroke PRIMARY INDICATION FOR PROCEDURE: CVA/ Possible embolic stroke PLANNED PROCEDURE: Operation Date: 07/07/21 11:30 Proposed Procedures p SIMIN(Not Applicable) - Mainor Bellamy M.D PATIENT REASSESSED PRIOR TO SEDATION, WITH NO CHANGE NOTED: Yes PHYSICAL EXAM: alert, oriented x 3, clear to auscultation bilaterally and regular rate & rhythm
--- NOTE | 2021-07-07 12:07 | ANE.PACU2 ---
Inpatient post-anesthesia follow up: Vital signs: Temperature 97 F Pulse Rate 110 Respiratory Rate 18 Blood Pressure 153/93 Pulse Oximetry 98 Oxygen Delivery Me thod [ Room Air Current Rate & Del favio] Oxygen Delivery Me thod Room Air Oxygen Flow Rate Fraction of Inspir ed Oxygen Hydration adequate: Yes Nausea and vomiting: No Pain level: 1 Mental status: Baseline
[2021-07-07 12:27] LABS: COMPLEMENT COMPONENT C3C 117 mg/dL (82-185); COMPLEMENT COMPONENT C4C 28 mg/dL (15-53)
--- NOTE | 2021-07-07 12:30 | P.DS_ITS ---
Discharge Providers Date of Admission: 07/05/21 10:39 Date of Discharge: July 07, 2021 Attending Provider at Admission: Segundo Olmstead MD Attending Provider at Discharge: Segundo Olmstead MD Primary Care Provider: Marcelo Lester DO Diagnoses at Discharge Discharge Diagnosis (1) Hypertension associated with type 2 diabetes mellitus: Status: Acute (2) Dyslipidemia: Status: Acute (3) Congestive heart failure: Status: Acute Permanent problem details: Last ejection fraction 35%. (4) CAD (coronary artery disease): Status: Acute Permanent problem details: Has had stents in RCA, LAD, circumflex with last procedure being angioplasty LAD stent 2018 (5) Ischemic cardiomyopathy: Status: Acute (6) Diabetes mellitus: Status: Acute (7) Stroke: Status: Acute Reason for Visit Reason for Visit: Numbness Hospital Course Hospital Course Mr. Martinez the hospital with headache, and left upper extremity and lower extremity numbness, tingling and pain especially with movement. He reported it was worse in the morning, and improved somewhat through the day. He had some nausea and vomiting. Laboratory on admission was nonspecific. CT head was concerning for right posterior temporal and parietal lobe CVA with slight midline shift. Symptomatology has been present for greater than 48 hours so he was not a candidate for TPA. Neurology was consulted, and an MRI was performed. There was some concern on MRI that he could have encephalitis so lumbar puncture was performed and acyclovir was initiated. Transthoracic echocardiogram demonstrated no evidence of thrombus, EF 35% Lumbar puncture did not seem significant for vasculitis or bacterial infection. MRA was performed which demonstrated strictures right distal M2 M3 M4 segments and vasculitis could not be ruled out. Sedimentation and CRP were only minimally elevated. In my discussion with neurology we thought this was much less likely and could be followed up on as an outpatient. A SIMIN was performed to rule out any intracardiac thrombus which demonstrated no evidence of patent foramen ovale, shunting, intracardiac thrombus. Other studies done included a renal ultrasound done for elevated creatinine which was normal and a right upper extremity duplex done for diminished pulse which was normal. On July 07 after his SIMIN patient was adamant that he would like to go home. His creatinine had elevated while in the hospital, but he was not interested in continuing to stay here to see if it improved. He does agree to for close follow-up with his primary care provider in 2 days with repeat BMP then. Neurology will see him in approximately 2 weeks. MRA of the neck will be obtained as an outpatient. He will also follow- up with cardiology in regards to his longstanding ischemic cardiomyopathy. He will be discharged on Brilinta, aspirin, high intensity statin. He will be discharged with an event monitor. No atrial fibrillation was noted in the hospital.Discharge creat 2.3. Instructed not to take any anti-inflammatories, hydrate, no Lasix until cleared by primary care provider. Physical Exam Narrative: General exam no distress Neurologic exam no obvious focal deficits Neck supple Cardiovascular regular rate and rhythm Lungs clear Abdomen is soft, positive bowel sounds Extremities no cyanosis clubbing or edema Discharge Data Studies Completed and Pending Completed Studies During Hospitalization Category Date Time Status CT head wo con* [id number] Urgent Cat Scan 07/05/21 05:26 Completed XR chest 1V portable [id number] Routine Exams 07/05/21 13:40 Completed MR head wo/w con [id number] Stat MRI 07/05/21 07:49 Completed MRA head [MR angio head wo con [id number]] Routine MRI 07/06/21 07:13 [place] [id number] Routine Ultrasound 07/06/21 08:07 Completed CV carotid duplex BI* [id number] Routine Ultrasound 07/05/21 13:40 Completed CV. echo complete* [id number] Routine Ultrasound 07/05/21 13:40 Completed US renal BI* [id number] Routine Ultrasound 07/06/21 08:55 Completed Pending at discharge Category Date Time Status JENNA SCREEN [JENNA Profile Rheumatology] Routine Lab 07/06/21 15:00 Received ANCA [Anti-Neutrophil Cytoplasmic AB] Routine Lab 07/06/21 15:00 Received Adenosine CSF [Adenosine Deaminase CSF] Routine Lab 07/05/21 18:43 Received CSF Culture & Gram Stain Routine Lab 07/05/21 18:43 Results Cryoglobulins Qualitative Routine Lab 07/06/21 18:56 Received Cryptococcal Antigen (CSF) Routine Lab 07/05/21 18:43 Results Herpes Simplex Virus DNA Routine Lab 07/05/21 18:34 Stop Req Lymes Disease Antibodies CSF Routine Lab 07/05/21 18:43 Received Oligoclonal Bands IGG, CSF Routine Lab 07/05/21 18:43 Received [place] Enceph.Virus IFA CSF Routine Lab 07/05/21 18:43 Stop Req VDRL on CSF Routine Lab 07/05/21 18:43 Received CV. echo transesophageal [id number] Routine Ultrasound 07/07/21 11:30 Taken Radiology Impressions Head CT 07/05/21 05:26 IMPRESSION: 1. 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 2. 3 mm midline shift to the left secondary to mass effect from subacute infarct with cerebral edema. ADDENDUM: 07/05/21 0637 History: Minimal symptoms. Low score on stroke scale. Discussion: CTA head & neck and/or nonemergent MRI brain with without contrast may be helpful to rule out other lesions besides subacute stroke. THIS REPORT CONTAINS FINDINGS THAT MAY BE CRITICAL TO PATIENT CARE. The findings were verbally communicated via telephone conference with Dr. 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 The findings were acknowledged and understood. Head MRI 07/05/21 07:49 IMPRESSION: 1. Diffuse T2 signal abnormality mainly in the subcortical configuration involving the RIGHT temporal and parietal lobes with some areas of restricted diffusion and diffuse associated petechial hemorrhage. Diffuse gyriform enhancement. Differential considerations include encephalitis including herpes encephalitis, infiltrating neoplasm, or subacute ischemia. 2. Mild associated mass effect on RIGHT lateral ventricle with mild RIGHT to LEFT midline shift measuring 2-3 mm. 3. Normal vascular flow voids at the skull base. 4. Additional single tiny punctate foci of partially restricted diffusion in the splenium of the corpus callosum and RIGHT posterior temporal lobe. These may represent tiny subacute infarcts. Notified Angelo Cui DO at 07/05/2021 9:54 AM. Chest X-Ray 07/05/21 13:40 IMPRESSION: No acute chest findings Head MRA 07/06/21 07:13 IMPRESSION: 1. Abnormal caliber with areas of strictures involving the RIGHT distal M2, M3 and M4 segments. This is in the area of the previously described brain abnormality on 07/05/2021 involving the temporal and parietal lobes. Highly suspicious for vasculitis. Numerous causes of vasculitis to consider include, meningitis, infectious, collagen vascular, drug abuse and autoimmune. 2. No aneurysms are identified. Renal Ultrasound 07/06/21 08:55 IMPRESSION: Normal kidneys and bladder Laboratory Results WBC 7.5 10^3/uL (4.0-10.0) 07/07/21 04:32 RBC 4.77 10^6/uL (4.1-5.3) 07/07/21 04:32 Hgb 15.5 g/dL (11.7-16.6) 07/07/21 04:32 Hct 44.4 % (42.0-52.0) 07/07/21 04:32 MCV 93.1 fl (80-94) 07/07/21 04:32 MCH 32.5 pg (28.0-34.0) 07/07/21 04:32 MCHC 34.9 g/dL (30.0-36.0) D 07/07/21 04:32 RDW 11.2 % (12.1-15.1) L 07/07/21 04:32 Plt Count 244 10^3/cmm (130-400) 07/07/21 04:32 MPV 9.7 fL (7.4-10.4) 07/07/21 04:32 Neut % (Auto) 72.8 % 07/07/21 04:32 Lymph % (Auto) 18.0 % 07/07/21 04:32 [place] % (Auto) 6.8 % 07/07/21 04:32 Eos % (Auto) 1.7 % 07/07/21 04:32 Baso % (Auto) 0.4 % 07/07/21 04:32 Neut # (Auto) 5.43 10^3/uL (1.8-7.7) 07/07/21 04:32 Lymph # (Auto) 1.3 10^3/uL (0.8-4.8) 07/07/21 04:32 [place] # (Auto) 0.5 10^3/uL (0.2-0.9) 07/07/21 04:32 Eos # (Auto) 0.1 10^3/uL (0.0-0.8) 07/07/21 04:32 Baso # (Auto) 0.0 10^3/uL (0.0-0.1) 07/07/21 04:32 Nucleated RBC % (auto) 0 % 07/07/21 04:32 Nucleated RBCs # 0.0 /100WBC 07/07/21 04:32 ESR 19 mm/hr (0-10) H 07/06/21 04:29 PT Cancelled 07/05/21 05:54 INR Cancelled 07/05/21 05:54 APTT Cancelled 07/05/21 05:54 Sodium 138 mmol/L (136-145) 07/07/21 04:32 Potassium 4.6 mmol/L (3.5-5.1) 07/07/21 04:32 Chloride 102 mmol/L (98-107) 07/07/21 04:32 Carbon Dioxide 16 mmol/L (22-29) L 07/07/21 04:32 Anion Gap 24.6 (5-19) H 07/07/21 04:32 BUN 29 mg/dL (6-20) H 07/07/21 04:32 Creatinine 2.3 mg/dL (0.7-1.2) H 07/07/21 04:32 GFR Calculation 29.9 mL/min (90-130) L 07/07/21 04:32 Glucose 187 mg/dL (65-115) H 07/07/21 04:32 POC Glucose 174 mg/dL (70-110) H 07/07/21 06:20 Calculated Osmolality 297 mOsm/kg (285-295) H 07/07/21 04:32 Calcium 8.1 mg/dL (8.5-10.5) L 07/07/21 04:32 Magnesium 2.1 mg/dL (1.7-2.3) 07/06/21 04:29 Total Bilirubin 0.8 mg/dL (0.15-1.2) 07/06/21 04:29 AST 20 U/L (0-40) 07/06/21 04:29 ALT 12 U/L (0-41) 07/06/21 04:29 Alkaline Phosphatase 85 IU/L (40-130) 07/06/21 04:29 Creatine Kinase 77 U/L (39-308) 07/06/21 04:29 C-Reactive Protein 12.2 mg/L (0.0-4.9) H 07/06/21 11:40 Total Protein 6.6 g/dL (6.6-8.7) 07/06/21 04:29 Albumin 3.9 g/dL (3.5-5.2) 07/06/21 04:29 Globulin 2.7 g/dL (1.3-4.6) 07/06/21 04:29 Vitamin B12 863 pg/mL (232-1245) 07/05/21 05:54 Folate 18.3 ng/mL (4.5-32.2) 07/05/21 05:52 Urine Color Yellow (Yellow) 07/06/21 15:10 Urine Appearance Clear (CLEAR) 07/06/21 15:10 Urine pH 5 (5-7) 07/06/21 15:10 Ur Specific [place] 1.020 (1.005-1.030) 07/06/21 15:10 Urine Protein 2+ (Negative) H 07/06/21 15:10 Urine Glucose (UA) 4+ (Normal) H 07/06/21 15:10 Urine Ketones 1+ (Negative) H 07/06/21 15:10 Urine Blood Neg (Negative) 07/06/21 15:10 Urine Nitrate Negative (Negative) 07/06/21 15:10 Urine Bilirubin Neg (Negative) 07/06/21 15:10 Urine Urobilinogen Norm mg/dL (Negative) 07/06/21 15:10 Ur Leukocyte Esterase Negative (Negative) 07/06/21 15:10 Urine RBC Rare /hpf (0-2) 07/06/21 15:10 Urine WBC Rare /hpf (0-5) 07/06/21 15:10 Ur Squamous Epith Cells 0-4 /hpf (0-5) H 07/06/21 15:10 Amorphous Sediment Not Reportable 07/06/21 15:10 Urine Bacteria Trace /hpf (NONE) 07/06/21 15:10 CSF Appearance Clear (CLEAR) 07/05/21 18:43 CSF Color Colorless (COLORLESS) 07/05/21 18:43 CSF WBC 5 /uL (0-5) 07/05/21 18:43 CSF RBC 0 10^3/uL (0-0) 07/05/21 18:43 CSF Mononuclear # Auto 0.005 10^3/uL (50-90) L 07/05/21 18:43 CSF Mononuclear WBCs % 100 % (50-90) H 07/05/21 18:43 CSF Polynuclear WBCs # 0.000 10^3/uL (0-10) 07/05/21 18:43 CSF Polynuclear WBCs % 0 % (0-10) 07/05/21 18:43 CSF Glucose 119 mg/dL (40-70) H 07/05/21 18:43 CSF Total Protein < 20 mg/dL (15-45) 07/05/21 18:43 Nasal Influ A H1 2009 PCR Not detected (NOT DETECT) 07/05/21 11:15 Complement C3c 117 mg/dL (82-185) 07/06/21 15:00 Complement C4c 28 mg/dL (15-53) 07/06/21 15:00 Coronavirus 229E (PCR) Not detected (NOT DETECT) 07/05/21 11:15 HIV 1&2 Ab & HIV 1 Ag Non-reactive (Non-Reactiv) 07/05/21 05:52 HIV 1&2 Antibody Non-reactive (Non-Reactiv) 07/05/21 05:52 Influenza A (H1) PCR Not detected (NOT DETECT) 07/05/21 11:15 Influenza A (H3) PCR Not detected (NOT DETECT) 07/05/21 11:15 Influenza Type A (PCR) Not detected (NOT DETECT) 07/05/21 11:15 Influenza Type B (PCR) Not detected (NOT DETECT) 07/05/21 11:15 SARS-CoV-2 (PCR) Not detected (NOT DETECT) 07/05/21 11:15 Misc Test Reference Cancelled 07/05/21 18:43 Vitals Last Vital Signs Temp 97.5 F L 07/07/21 12:01 Pulse 101 H 07/07/21 12:13 Resp 16 07/07/21 12:13 BP 123/82 07/07/21 12:13 Pulse Ox 96 07/07/21 12:13 Discharge Plan Discharge Patient Disposition: Home Condition: Stable Prescriptions: New atorvastatin 40 mg Tablet 40 mg PO DAILY Qty: 30 0RF Continued carvedilol [Coreg] 6.25 mg tablet 6.25 mg PO BID 90 Days Qty: 180 3RF Rx Instructions: must administer with a meal/food insulin lispro [Humalog KwikPen Insulin] 100 unit/mL insulin pen 9 unit SUBCUT TID 0RF Lantus Solostar U-100 Insulin 100 unit/mL (3 mL) Insulin Pen 20 unit SUBCUT BEDTIME 0RF meclizine 25 mg Tablet 25 mg PO DAILY PRN (Reason: Dizziness) 0RF Probiotic Gummies 1 tab PO DAILY 0RF Vitamin D Gummies 1 tab PO DAILY 0RF aspirin 81 mg tablet,delayed release (DR/EC) 81 mg PO DAILY Qty: 90 3RF Brilinta 90 mg tablet 90 mg PO BID Qty: 180 2RF Discontinued furosemide 20 mg tablet 20 mg PO DAILY Qty: 90 2RF diphenoxylate-atropine [Lomotil] 2.5-0.025 mg Tablet 1 tab PO DAILY PRN (Reason: Diarrhea) 0RF Discharge Orders: Discharge Order (Routine); Ordered 07/07/21 Ordered By: Segundo Olmstead Other Ambulatory Orders: MR angio neck wo con [id number] (Routine) Timeframe: 1 Week Facility: [facility] - Location: Radiology [facility] Ordered By: Segundo Olmstead MCT/Event Monitor 21 Days (Routine) Timeframe: 3 Days Facility: [facility] - Location: Radiology Ordered By: Segundo Olmstead Physical Therapy Eval and Treat Outpatient (Order) Timeframe: 3 Weeks Facility: [facility] - Location: Physical Therapy Ordered By: Segundo Olmstead Referrals: Iveth Thomas MD [Physician] - 07/20/21 8:00 am Mainor Bellamy M.D [Physician] - 1 month Marcelo Lester DO [Primary Care Provider] - 07/14/21 10:00 am (BMP on follow up) Discharge Diet: Cardiac and Diabetic Discharge Activity: Increase activity as tolerated Patient Instructions: Aspirin (By mouth), Atorvastatin (By mouth), Ticagrelor (By mouth), Stroke (GEN), Opioid Safety Activity Restrictions/Additional Instructions: Take all medicine as prescribed Follow-up with primary care provider as well as neurology Outpatient MRA neck [facility] WILL CALL WITH APPOINTMENT WITH MRI Encourage fluids Hold Lasix on discharge APPOINTMENT WITH [facility] ON JULY 12 AT 13:45 Discharge Attestations Time Spent in Discharge Care*: greater than 30 min Quality Metrics Clinical Quality Measures [ Cerebrovascular Accident { Contraindication to Antithrombotic: None; antithrombotic prescribed; Contraindication to Anticoagulation: Other (not indicated); Contraindication to Statin: None; Statin prescribed; Reason stroke education not provided: Stroke education provided to patient;}] Coding Level of Care Code Acute g FW [place] note Diagnoses Hypertension associated with type 2 diabetes mellitus E11.59; I15.2 Dyslipidemia E78.5 Congestive heart failure I50.9 CAD (coronary artery disease) I25.10 Ischemic cardiomyopathy I25.5 Diabetes mellitus E11.9 Stroke I63.9
--- NOTE | 2021-07-07 13:43 | P.PN_ITS ---
Subjective Subjective: Patient doing well. No complaints of chest pain, shortness of breath or palpitations. Underwent SIMIN today and no cardiac source of embolism seen . Vitals/I&O/Wt Last Vital Signs Temp 97.5 F L 07/07/21 12:01 Pulse 101 H 07/07/21 12:13 Resp 16 07/07/21 12:13 BP 123/82 07/07/21 12:13 Pulse Ox 96 07/07/21 12:13 07/06/21 07/07/21 07/07/21 22:59 06:59 14:59 Intake Total 76.667 / 1540.000 800 / 800 Output Total 350 / 950 800 / 1750 Balance -350 / 513.333 -723.333 / -210.000 800 / 800 Physical Exam Narrative: GENERAL: Patient is alert, awake and oriented x3. [] NECK: No jugular vein distension. [] HEENT: No cyanosis. No icterus. No pallor. [] HEART: Regular S1 and S2. No murmur, rub or gallop. [] LUNGS: Clear to auscultate bilaterally. [] ABDOMEN: Soft, nontender and nondistended. CENTRAL NERVOUS SYSTEM: Has decreased sensation on the left side. Data : 07/07/21 04:32 07/07/21 04:32 Micro: Microbiology 07/05/21 18:43 Gram Stain - Final Cerebrospinal Fluid CSF Culture - Preliminary Cryptococcal Antigen - Final A&P Assessment and plan (1) Hypertension associated with type 2 diabetes mellitus: Status: Deleted (2) Dyslipidemia: Status: Acute (3) Congestive heart failure: Status: Acute (4) CAD (coronary artery disease): Status: Acute (5) Ischemic cardiomyopathy: Status: Acute (6) Diabetes mellitus: Status: Acute (7) Stroke: Status: Acute Plan Patient has presented with stroke. This likely is embolic in nature per neurology evaluation. SIMIN does not show cardiac source for stroke. Continue aspirin, second antiplatelet agent can be discussed with neurology. From cardiac standpoint he can stay either on brilinta or switched to plavix as stents are not recent. Continue Coreg at current dose. Once his renal function normalizes, Entresto can be added. Low-sodium diet advised Creatinine is still trending up. Ideally should stay in the hospital till downtrend is seen, however patient is anxious to leave today Thank you for involving us with care of this patient. Please call with questions. Attestations Medical Necessity Statement*: Care expected to cross 2 midnights. 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
[2021-07-07 14:33] LABS: COMPLEMENT, TOTAL (CH50) >60 U/mL (31-60)
[2021-07-08 12:28] LABS: ANCA Screen NEGATIVE (NEGATIVE)
[2021-07-09 13:27] LABS: CENTROMERE B ANTIBODY <1.0 NEG AI (<1.0 NEG); JO-1 ANTIBODY <1.0 NEG AI (<1.0 NEG); RNP ANTIBODY <1.0 NEG AI (<1.0 NEG); SCL-70 ANTIBODY <1.0 NEG AI (<1.0 NEG); SJOGREN'S ANTIBODY (SS-A) <1.0 NEG AI (<1.0 NEG); SM ANTIBODY <1.0 NEG AI (<1.0 NEG); SS-B <1.0 NEG AI (<1.0 NEG)
[2021-07-09 14:43] LABS: THYROID PEROXIDASE ANTIBODIES 115 IU/mL (<9)
[2021-07-09 21:13] LABS: Adenosine Deaminase CSF 0.9 U/L (<7.0)
[2021-07-09 23:07] LABS: HSV 1 DNA NOT DETECTED; HSV 2 DNA NOT DETECTED; HSV Source CEREBROSPINAL FLUID
[2021-07-10 11:33] LABS: DNA AB (DS) CRITHIDIA,IFA NEGATIVE (NEGATIVE)
[2021-07-10 19:12] LABS: Lyme Disease AB (IGG),IBL NO BANDS DETECTED; Lyme Disease AB (IGM), IBL NO BANDS DETECTED
[2021-07-11 00:47] LABS: VDRL on CSF NON-REACTIVE
[2021-07-12 11:27] LABS: ANA SCREEN, IFA POSITIVE (NEGATIVE)
[2021-07-12 16:11] LABS: St. Louis Enceph.Virus IGG CSF <1:1; St. Louis Enceph.Virus IGM CSF <1:1
== END 2021-07-07 14:46 | disposition home or self-care (01) | DRG 64 ==
LOC: ER 12:26 → MEDSURG 13:09
PROVIDERS: Emergency Medicine; Internal Medicine; Specialist; Admitting Provider Internal Medicine; Emergency Provider Family Medicine; PCP Internal Medicine; Visit Provider Internal Medicine
PROC: B24BZZ4 Ultrasonography of Heart with Aorta, Transesophageal (ICD-10-PCS; CPT 93312; principal; 2021-07-07 11:30)
DX: I63.511 Cerebral infarction due to unspecified occlusion or stenosis of right middle cerebral artery (principal); G93.6 Cerebral edema; G81.94 Hemiplegia, unspecified affecting left nondominant side; N17.9 Acute kidney failure, unspecified; I67.841 Reversible cerebrovascular vasoconstriction syndrome; E78.5 Hyperlipidemia, unspecified; I25.10 Atherosclerotic heart disease of native coronary artery without angina pectoris; Z95.5 Presence of coronary angioplasty implant and graft; E11.59 Type 2 diabetes mellitus with other circulatory complications; I15.2 Hypertension secondary to endocrine disorders; I25.5 Ischemic cardiomyopathy; R29.701 NIHSS score 1; Z79.4 Long term (current) use of insulin; Z79.82 Long term (current) use of aspirin; I50.9 Heart failure, unspecified; I99.8 Other disorder of circulatory system
CPT/HCPCS: 36415; 36416; 51798; 70450; 70544; 70553; 71045; 76770; 80048; 80053; 80500; 81001; 82550; 82595; 82607; 82746; 82945; 82962; 83516; 83735; 83916; 84157; 84311; 85025; 85610; 85651; 85730; 86140; 86160; 86162; 86235; 86255; 86376; 86592; 86617; 86653; 87070; 87075; 87205; 87327; 87530; 87631; 87635; 87806; 89050; 93005; 93306; 93312; 93320; 93325; 93880; 93931; 96365; 96372; 96375; 97161; 97165; 99285; A9577; J0133; J1644; J1650; J1815 ×2; J2060; J2270; J2405; J7030

== ENCOUNTER 2021-07-09 19:49 | Emergency (ER) | payer BC, SELFPAY ==
[2021-07-09 19:52] VITALS: BP 142/89; PULSE 101; RESP 18; TEMP 36.6; O2SAT 100; BMI 25.8
--- NOTE | 2021-07-09 20:15 | CTR_ITS ---
PROCEDURE INFORMATION: Exam: CT Head Without Contrast Exam date and time: 07/09/2021 8:15 PM Age: 55 years old Clinical indication: Pain; Headache not specified; Patient HX: Recent stroke C/O HARE w photophobia and nausea; Additional info: Headache recent stroke TECHNIQUE: Imaging protocol: Computed tomography of the head without contrast. Radiation optimization: All CT scans at this facility use at least one of these dose optimization techniques: automated exposure control; mA and/or kV adjustment per patient size (includes targeted exams where dose is matched to clinical indication); or iterative reconstruction. COMPARISON: MR head wo/w con [id number] 07/05/2021 8:33 AM RADIATION DOSE METRICS: Total DLP (mGy-cm): 867.25 FINDINGS: Brain: There is an extensive subacute right posterior temporal-parietal infarct. On the previous MRI there was gyral hemorrhage within this infarct. On the current scan there is a more focal gross hemorrhage within the infarct measuring 3.4 x 3.0 by 3.3 cm. This is a volume of 16 cc. There is mass effect with 5 mm of midline shift. The right uncus effaces the right suprasellar cistern. No new infarct. No extra-axial collection. Cerebral ventricles: No ventriculomegaly. No intraventricular hemorrhage. Paranasal sinuses: Visualized sinuses are unremarkable. No fluid levels. Mastoid air cells: Visualized mastoid air cells are well aerated. Bones/joints: Unremarkable. No acute fracture. Soft tissues: Unremarkable. CT/CT head wo con* [id number] IMPRESSION: Acute hemorrhagic transformation of right posterior temporal-parietal infarct. 5 mm of midline shift
--- NOTE | 2021-07-09 20:16 | ECG_ITS ---
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 Measurements Intervals [place] Rate: 92 P: 80 IA: 153 QRS: 59 QRSD: 98 T: 102 QT: 377 QTc: 467 Interpretive Statements SINUS RHYTHM POSSIBLE LEFT ATRIAL ENLARGEMENT [-0.1mV P-WAVE IN V1/V2] SEPTAL MYOCARDIAL INFARCTION , OF INDETERMINATE AGE [40+ ms Q WAVE IN V1/V2] Compared to ECG 07/05/2021 05:34:16 T-wave abnormality no longer present Myocardial infarct finding still present Electronically Signed On 07-10-2021 8:26:45 TOP ICER by Jaqueline Gross M.D. [email or web address]
[2021-07-09 20:23] VITALS: RESP 16; O2SAT 98
[2021-07-09] MEDS: ondansetron 2 mg/ML SDV 2 mL 4 MG IVP (20:23)
[2021-07-09] MEDS: fentaNYL 50 mcg/mL INJ 2mL 74.8 MCG IVP (20:23)
[2021-07-09 20:25] LABS: Basophils % 0.3 %; Eosinophils # 0.2 10^3/uL (0.0-0.8); Eosinophils % 3.1 %; Hematocrit 41.9 % (42.0-52.0); Hemoglobin 14.9 g/dL (11.7-16.6); Lymphocytes # 1.5 10^3/uL (0.8-4.8); Lymphocytes % 20.8 %; Mean Corpuscular HGB Conc 35.6 g/dL (30.0-36.0); Mean Corpuscular Hemoglobin 32.4 pg (28.0-34.0); Mean Corpuscular Volume 91.1 fl (80-94); Mean Platelet Volume 9.4 fL (7.4-10.4); Monocytes # 0.5 10^3/uL (0.2-0.9); Monocytes % 7.2 %; Neutrophils # 5.03 10^3/uL (1.8-7.7); Neutrophils % 68.3 %; Nucleated Red Blood Cells % 0 %; Platelet Count 314 10^3/cmm (130-400); Red Cell Distribution Width 10.9 % (12.1-15.1); White Blood Count 7.4 10^3/uL (4.0-10.0)
[2021-07-09 20:38] LABS: Erythrocyte Sedimentation Rate 19 mm/hr (0-10)
[2021-07-09 20:43] LABS: Alanine Aminotransferase 19 U/L (0-41); Albumin Level 4.1 g/dL (3.5-5.2); Alkaline Phosphatase 85 IU/L (40-130); Anion Gap 19.5 (5-19); Aspartate Amino Transferase 22 U/L (0-40); Blood Urea Nitrogen 23 mg/dL (6-20); C Reactive Protein 9.2 mg/L (0.0-4.9); Calcium 9.8 mg/dL (8.5-10.5); Carbon Dioxide 22 mmol/L (22-29); Chloride 96 mmol/L (98-107); Globulin 3.1 g/dL (1.3-4.6); Glomerular Filtration Rate 63.3 mL/min (90-130); Glucose 356 mg/dL (65-115); Osmolality Calculated 294 mOsm/kg (285-295); Potassium 4.5 mmol/L (3.5-5.1); Sodium 133 mmol/L (136-145); Total Bilirubin 0.6 mg/dL (0.15-1.2); Total Protein 7.2 g/dL (6.6-8.7)
[2021-07-09] MEDS: nicardipine 20 MG/200 ML PREMIX 50 MG IV (21:02)
--- NOTE | 2021-07-09 21:02 | ED_ITS ---
HPI - Headache General: Chief Complaint: Headache Stated Complaint: Possible Stroke Time Seen by Provider: 07/09/21 20:03 Source: patient and family History of Present Illness: 55-year-old male gentleman who was admitted this past Monday with stroke symptoms that were likely a week old at that point. He was exhibited some left-sided paresthesias, with some mild weakness, and headache on and off. He was determined to have an ischemic stroke in the right parietal region of his brain. He was discharged on Monday, and states he has had a headache on and off since that time, but it was progressively worse today, particularly this afternoon. He began to vomit, including his medications, so she brought him to the hospital. No new vision complaints, weakness complaints, language complaints, etc. Simply worsening headache and vomiting. MD elicited complaint: headache Pertinent past history: other Onset (ago): day(s) Onset description: gradually Location: frontal Severity: severe Quality & Timing: aching and throbbing Relieving factors: nothing Context: occurred at rest Associated symptoms: Reports diaphoresis, nausea, numbness (on and off) and vomiting; Deny chest pain, confusion, cough, eye pain, eye redness, fever(s), lightheadedness, loss of vision, neck stiffness, short of breath or syncope Treatments prior to arrival: acetaminophen Review of Systems Const: Reports: diaphoresis; Denies: fever(s) Card: Denies: chest pain, lightheadedness or syncope GI: Reports: nausea and vomiting Neuro: Denies: confusion PFSH ED PFSH: Medical History CAD (coronary artery disease) Has had stents in RCA, LAD, circumflex with last procedure being angioplasty LAD stent 2018 Congestive heart failure Last ejection fraction 35%. Diabetes mellitus Dyslipidemia History of heart attack Hypertension associated with type 2 diabetes mellitus Ischemic cardiomyopathy Palmar fascial fibromatosis [dupuytren] Surgical History History of coronary angiogram History of eye surgery Family History Other CAD (coronary artery disease) Diabetes Social History (Reviewed 07/06/21 @ 17:38 by Sean Shanks Smoking and tobacco status: never smoked Alcohol intake: never Physical Exam Const: COMMON NORMALS: alert HENMT: COMMON NORMALS: normocephalic, atraumatic and Normal external nose present HEAD & SCALP: normocephalic and atraumatic FACE & SINUS: normal facial exam NOSE: Normal external nose present Eye: COMMON NORMALS: Equal, round and reactive pupils present and EOMs intact bilaterally PUPIL: Yes Equal, round and reactive pupils present Chest: COMMONS NORMALS: normal inspection of the chest Resp: COMMON NORMALS: normal respiratory effort, No use of accessory muscles and clear to auscultation bilaterally AUSCULTATION: clear to auscultation bilaterally Cardio: COMMON NORMALS: regular rate and regular rhythm RATE: regular rate RHYTHM: regular rhythm GI: COMMON NORMALS: Normal to inspection, nondistended, normoactive bowel sounds present and Soft to palpation PALPATION: Yes Soft to palpation Neuro: RAYMOND COMA SCALE: document GCS findings [place] coma scale eye opening: Spontaneous [place] coma scale verbal response: Orientated [place] coma scale motor response: Obey commands [place] coma scale total score: 15 SENSORIUM/ORIENTATION: Yes alert CRANIAL NERVES: Yes CN normal except as noted SPEECH: speech normal GAIT: Yes Unable to assess gait SENSORY EX AM: Yes extremities (grossly intact) Psych: COMMON NORMALS: mental status grossly normal Course Consultations: Consultation #1: alissa duval er Vital Signs: Vital signs: Vital Signs Temperature 97.9 F 07/09/21 19:52 Pulse Rate 91 07/09/21 21:30 Respiratory Rate 16 07/09/21 21:30 Blood Pressure 121/80 07/09/21 21:30 Pulse Oximetry 100 07/09/21 21:30 MDM - Headache Medical Decision Making 55-year-old male with worsening headache following a stroke a couple of weeks ago. He was discharged 2 days prior and is experienced worsening headache at home. CT of the head noncontrast and acutely shows a right parenchymal parietal bleed there is a significant amount of blood with midline shift. We have no neurosurgical availability at this facility. I spoke with the ER at [facility], and they are willing to take the patient. The patient was transported by air ambulance service on nicardipine for blood pressure. He was significantly hypertensive on arrival, which improved some on its own, some with pain control, and some on the nicardipine. Lab Data : 07/09/21 20:15 07/09/21 20:[address] 07/09/21 20:15 IMPRESSION: Acute hemorrhagic transformation of right posterior temporal-parietal infarct. 5 mm of midline shift ADDENDUM: 07/09/212114 THIS REPORT CONTAINS FINDINGS THAT MAY BE CRITICAL TO PATIENT CARE. The findings were reported received by ED GOODEN at 9:14 PM [employer] MANAGER on 07/09/2021. No questions reported Laboratory Results WBC 7.4 10^3/uL (4.0-10.0) 07/09/21 20:15 RBC 4.60 10^6/uL (4.1-5.3) 07/09/21 20:15 Hgb 14.9 g/dL (11.7-16.6) 07/09/21 20:15 Hct 41.9 % (42.0-52.0) L 07/09/21 20:15 MCV 91.1 fl (80-94) 07/09/21 20:15 MCH 32.4 pg (28.0-34.0) 07/09/21 20:15 MCHC 35.6 g/dL (30.0-36.0) 07/09/21 20:15 RDW 10.9 % (12.1-15.1) L 07/09/21 20:15 Plt Count 314 10^3/cmm (130-400) 07/09/21 20:15 MPV 9.4 fL (7.4-10.4) 07/09/21 20:15 Neut % (Auto) 68.3 % 07/09/21 20:15 Lymph % (Auto) 20.8 % 07/09/21 20:15 [place] % (Auto) 7.2 % 07/09/21 20:15 Eos % (Auto) 3.1 % 07/09/21 20:15 Baso % (Auto) 0.3 % 07/09/21 20:15 Neut # (Auto) 5.03 10^3/uL (1.8-7.7) 07/09/21 20:15 Lymph # (Auto) 1.5 10^3/uL (0.8-4.8) 07/09/21 20:15 [place] # (Auto) 0.5 10^3/uL (0.2-0.9) 07/09/21 20:15 Eos # (Auto) 0.2 10^3/uL (0.0-0.8) 07/09/21 20:15 Baso # (Auto) 0.0 10^3/uL (0.0-0.1) 07/09/21 20:15 Nucleated RBC % (auto) 0 % 07/09/21 20:15 Nucleated RBCs # 0.0 /100WBC 07/09/21 20:15 ESR 19 mm/hr (0-10) H 07/09/21 20:15 Sodium 133 mmol/L (136-145) L 07/09/21 20:15 Potassium 4.5 mmol/L (3.5-5.1) 07/09/21 20:15 Chloride 96 mmol/L (98-107) L 07/09/21 20:15 Carbon Dioxide 22 mmol/L (22-29) 07/09/21 20:15 Anion Gap 19.5 (5-19) H 07/09/21 20:15 BUN 23 mg/dL (6-20) H 07/09/21 20:15 Creatinine 1.2 mg/dL (0.7-1.2) 07/09/21 20:15 GFR Calculation 63.3 mL/min (90-130) L 07/09/21 20:15 Glucose 356 mg/dL (65-115) H 07/09/21 20:15 Calculated Osmolality 294 mOsm/kg (285-295) 07/09/21 20:15 Calcium 9.8 mg/dL (8.5-10.5) 07/09/21 20:15 Total Bilirubin 0.6 mg/dL (0.15-1.2) 07/09/21 20:15 AST 22 U/L (0-40) 07/09/21 20:15 ALT 19 U/L (0-41) 07/09/21 20:15 Alkaline Phosphatase 85 IU/L (40-130) 07/09/21 20:15 C-Reactive Protein 9.2 mg/L (0.0-4.9) H 07/09/21 20:15 Total Protein 7.2 g/dL (6.6-8.7) 07/09/21 20:15 Albumin 4.1 g/dL (3.5-5.2) 07/09/21 20:15 Globulin 3.1 g/dL (1.3-4.6) 07/09/21 20:15 Critical Care Time Critical Care Time: Critical Care Time: Yes Total Critical Care Time: 36 Attestation: This case had a high probability of a clinically significant, sudden, or life threatening deterioration of this patient's condition which required my full and direct attention, intervention and personal management. This is independent of any procedures performed Discharge Plan Discharge Patient Disposition: Xfer Short-Term Hosp Clinical Impression: Spontaneous intraparenchymal intracranial hemorrhage, acute Condition: Stable Referrals: Marcelo Lester DO [Primary Care Provider] - Coding Level of Care Code ED Wash Crew Person for Chg Fwd Exam Comprehensive
[2021-07-09 21:05] VITALS: BP 156/96; PULSE 93; RESP 18; O2SAT 96
[2021-07-09 21:23] VITALS: BP 134/95; PULSE 90; RESP 16; O2SAT 96
[2021-07-09] MEDS: midazolam 1 mg/mL INJ 2 mL 2 MG IVP (21:28)
[2021-07-09 21:30] VITALS: BP 121/80; PULSE 91; RESP 16; O2SAT 100
== END 2021-07-09 21:48 | disposition short-term general hospital (02) ==
PROVIDERS: Emergency Provider Emergency Medicine; PCP Internal Medicine
DX: I62.9 Nontraumatic intracranial hemorrhage, unspecified (principal); I25.10 Atherosclerotic heart disease of native coronary artery without angina pectoris; I11.0 Hypertensive heart disease with heart failure; I50.9 Heart failure, unspecified; E11.9 Type 2 diabetes mellitus without complications; E78.5 Hyperlipidemia, unspecified
CPT/HCPCS: 70450; 80053; 85025; 85651; 86140; 93005; 96365; 96366; 96375; 99284; J2250; J2405; J3010

== ENCOUNTER → 2023-07-28 10:09 | Outpatient (BNVA) | payer BC, SELFPAY | PROVIDERS: PCP Family Medicine; Visit Provider Nurse Practitioner Family | DX: I25.10 Atherosclerotic heart disease of native coronary artery without angina pectoris (principal); I50.9 Heart failure, unspecified; I51.7 Cardiomegaly | CPT/HCPCS: 93005 ==

== ENCOUNTER 2023-07-28 11:15 | Outpatient (CLI) | payer BC, SELFPAY ==
--- NOTE | 2023-07-28 11:23 | XR_ITS ---
WS: [id number] Chest 2 views, 07/28/2023 Clinical Data: active coughing, rales Comparison: Two-view chest, 05/06/2022 Findings: No nodules, masses or effusions are seen. The heart is normal. The pulmonary vascularity is not increased. No pneumonia or pneumothorax is seen. Impression: Negative chest.
--- NOTE | 2023-07-28 11:30 | USCV_ITS ---
Sebastien Martinez Age: 57 Gender: M : 1965 Exam Date: 07/28/2023 11:31 Ordering Phys: Vanna Mckeon Technologist: Kenyon Kwok Exam Location[place] [facility] [place] Indication: systolic chf BP: 132 / 80 HR: 89 Rhythm: Sinus Technical Quality: Adequate MEASUREMENTS (Male / Female) Normal Values 2D ECHO LVOT Diameter 2.0 cm LV Ejection Fraction MOD 2C 26.1 % LV Ejection Fraction 2C AL 26.4 % LA Diameter 4.2 cm RA Systolic Volume 4C AL 32.3 ml RA Systolic Volume 4C MOD 32.6 ml Aorta at Sinotubular Diameter 2.4 cm IVC Diameter 1.7 cm M-MODE LA Ao Ratio MM 1.3 AV Cusp Separation MM 2.1 cm DOPPLER AV Peak Velocity 64.0 cm/s LVOT Peak Velocity 46.0 cm/s AV Area Cont Eq vti 2.2 cm squared AV Area Cont Eq pk 2.3 cm squared MV Peak Velocity 107.0 cm/s MV Area PHT 6.3 cm squared Mitral E to A Ratio 3.7 TV Peak Velocity 354.7 cm/s TR Peak Velocity 371.0 cm/s TR Peak Gradient 55.1 mmHg TR Mean Velocity 273.0 cm/s TR Mean Gradient 31.8 mmHg TR Velocity Time Integral 106.5 cm PV Peak Velocity 49.0 cm/s RV Ejection Time 0.3 s FINDINGS Left Ventricle Left ventricle is dilated. LV systolic function is severely reduced with EF of 20 to 25%. Severe global hypokinesis. Grade 3 diastolic dysfunction. Right Ventricle RV is moderately hypokinetic. Right Atrium Normal in size Left Atrium Normal in size Mitral Valve Structurally normal mitral valve. Mild mitral regurgitation. Aortic Valve Structurally normal aortic valve. No significant stenosis. Mild aortic regurgitation. Tricuspid Valve Mild tricuspid regurgitation. RVSP is 45 to 50 mmHg. This is consistent with moderate pulmonary hypertension. Pulmonic Valve Trace pulmonic regurgitation. Pericardium Trace pericardial effusion. Aorta Normal in size IVC Normal in size CONCLUSIONS LV systolic function is severely reduced with EF of 20 to 25%. Grade 3 diastolic dysfunction RV is moderately hypokinetic Mild mitral regurgitation Mild aortic regurgitation Mild tricuspid regurgitation Moderate pulmonary hypertension Trace pulmonic regurgitation Trace pericardial effusion Compared to prior echocardiogram from 2021, LV systolic function appears to have worsened further Mainor Bellamy MD (Electronically Signed) Final Date: 01 August 2023 07:22 S
== END 2023-07-28 11:16 | disposition home or self-care (01) ==
LOC: RAD 11:15
PROVIDERS: PCP Family Medicine; Visit Provider Nurse Practitioner Family
DX: I25.5 Ischemic cardiomyopathy (principal); I25.10 Atherosclerotic heart disease of native coronary artery without angina pectoris; I50.9 Heart failure, unspecified; I27.20 Pulmonary hypertension, unspecified
CPT/HCPCS: 71046; 93306

== ENCOUNTER 2023-07-31 22:53 | Inpatient (IN) | payer BC, SELFPAY ==
[2023-07-31 22:58] VITALS: BP 141/90; PULSE 84; RESP 18; TEMP 36.7; O2SAT 97
--- NOTE | 2023-07-31 23:20 | XRR_ITS ---
PROCEDURE INFORMATION: Exam: XR Chest Exam date and time: 07/31/2023 11:36 PM Age: 57 years old Clinical indication: Shortness of breath; Chest pressure; Prior surgery; Surgery date: 6+ months; Surgery type: Coronary stent; Patient HX: C/O chest pain with SOB. History of chf. ; Additional info: HX of chf/swelling TECHNIQUE: Imaging protocol: Radiologic exam of the chest. Views: 1 view. COMPARISON: CR XR chest 2V* [id number] 07/28/2023 12:03 PM FINDINGS: Lungs: Unremarkable. No consolidation. Pleural spaces: Unremarkable. No pleural effusion. No pneumothorax. Heart/Mediastinum: Mildly enlarged despite technical magnification when compared to single-view study of 05/06/2022. Bones/joints: Unremarkable. XR/XR chest 1V portable 19592 IMPRESSION: Mild cardiac enlargement without overt interstitial edema.
--- NOTE | 2023-07-31 23:20 | ECG_ITS ---
[facility] Test Date: 2023-07-31 Pat Name: Sebastien Martinez Department: Room: Gender: Male [employer] Worker: : 1965 Requested By: Rancho Liz Order Number: [id number] Albina MD: Liza Steward M.D. Measurements Intervals [place] Rate: 81 P: 66 VA: 162 QRS: 11 QRSD: 90 T: 89 QT: 387 QTc: 450 Interpretive Statements SINUS RHYTHM LEFT ATRIAL ENLARGEMENT [-0.15mV P-WAVE IN V1/V2] SEPTAL MYOCARDIAL INFARCTION , PROBABLY OLD [40+ ms Q WAVE IN V1/V2] INTERPRETATION BASED ON A DEFAULT AGE OF 40 YEARS Compared to ECG 07/28/2023 10:14:11 No significant changes Electronically Signed On 08-02-2023 23:58:31 CDT by Liza Steward M.D. [id number]
--- NOTE | 2023-07-31 23:33 | W.ED.ABDPA2 ---
Documented by User: AGUSTIN Michaels 08/01/23 00:32 HPI - Abdominal Pain General: Chief Complaint: Abdominal Pain Stated Complaint: chest pain sob n/v swollen Time Seen by Provider: 07/31/23 23:09 Source: patient and family Mode of arrival: ambulatory Limitations: no limitations History of Present Illness: Patient is a 57-year-old male past medical history of CHF and stent placement x 4 who presents to the emergency department due to abdominal pain onset today. Patient is also noting peripheral edema up to his thighs as well as some abdominal swelling, which she states is new for him. Due to a history of poor kidney function, he had not been placed on Lasix prior to recently, as he states he took his first dose of Lasix today. He does note that his edema has been improving since, however the abdominal pain and nausea concerned him. He recently underwent a hepatitis panel which was negative, as well as a liver ultrasound that was also negative for any cirrhosis. Additionally, he notes he recently had an echocardiogram that has yet to be read, but does note the history of CHF. Patient's in the room comments that his liver enzymes are chronically elevated as well as his urine albumin due to his history of diabetes. He was recently started on Farxiga. The abdominal pain is primarily in the right lower quadrant and periumbilically, patient reports history of appendectomy. Other than some increased urination from the Lasix, he denies any other urinary symptoms. Additionally he denies any vomiting, changes in bowel, chest pain, breathing difficulties, lightheadedness or dizziness, or any other symptoms. MD elicited complaint: abdominal pain Onset (ago): hour(s) Pain Consistency: constant Location: Periumbilical and RLQ Severity: mild Radiation: none Migration to: no migration Exacerbating factors: nothing Relieving factors: nothing Associated Symptoms: Reports nausea; Denies bloating, change in stool character, chills, coffee ground emesis, constipation, diarrhea, dysuria, fever(s), hematochezia, hematemesis and vomiting Review of Systems General: Reports: 10 or more systems reviewed and unremarkable except in HPI and below Const: Denies: fever(s), chills, change in appetite, change in weight or diaphoresis ENMT: Denies: throat pain or hoarseness Card: Reports: edema; Denies: chest pain, palpitations or lightheadedness Resp: Denies: dyspnea, productive cough or wheezing GI: Reports: abdominal pain and nausea; Denies: vomiting, hematemesis, coffee ground emesis, diarrhea, constipation, bloating, change in stool character or hematochezia : Reports: urinary frequency; Denies: flank pain, difficulty urinating, dysuria or urinary urgency Musc: Denies: neck pain or back pain Skin/Breast: Denies: rash or new lesions Neuro: Denies: headache(s) or dizziness PFSH ED PFSH: Medical History (Updated 08/01/23 @ 01:01 by Amy Noland MD) CHF (congestive heart failure) Stroke Acute right arterial ischemic stroke, middle cerebral artery (MCA) Dyslipidemia Congestive heart failure Last ejection fraction 35%. CAD (coronary artery disease) Has had stents in RCA, LAD, circumflex with last procedure being angioplasty LAD stent 2018 Ischemic cardiomyopathy History of heart attack Diabetes mellitus Palmar fascial fibromatosis [dupuytren] Surgical History (Updated 08/01/23 @ 01:01 by Amy Noland MD) Hx of shoulder surgery History of eye surgery History of coronary angiogram Family History Other CAD (coronary artery disease) Diabetes Social History Smoking and tobacco/nicotine status: never used tobacco/nicotine Alcohol intake: never Substance/Drug Use: never Physical Exam Const: COMMON NORMALS: no acute distress, average body habitus, patient oriented x3, no limitations, healthy appearing, alert and well nourished GENERAL APPEARANCE: cooperative and comfortable ORIENTATION/CONSCIOUSNESS: Yes awake HENMT: COMMON NORMALS: normocephalic, atraumatic, hearing grossly normal bilaterally, external ears normal, Normal external nose present, Normal nasal mucous membranes and turbinates present and moist oral mucous membranes HEAD & SCALP: normocephalic and atraumatic NOSE: Normal external nose present and Normal nasal mucous membranes and turbinates present EXTERNAL EAR: Yes external ears normal Eye: COMMON NORMALS: Equal, round and reactive pupils present, EOMs intact bilaterally and normal visual holt by confrontation SCLERA: scleral abnormal Laterality of scleral abnormality: positive bilateral scleral icterus (Mild) PUPIL: Yes Equal, round and reactive pupils present Neck/C-Spine: COMMON NORMALS: full ROM, supple, no meningeal signs and no JVD Resp: COMMON NORMALS: normal respiratory effort, No retractions, No use of accessory muscles and clear to auscultation bilaterally AUSCULTATION: clear to auscultation bilaterally, no crackles, no rales, no rhonchi and no wheezes Cardio: COMMON NORMALS: no JVD, regular rate, regular rhythm, S1 normal heart sound present, S2 normal heart sound present, No gallops present (Cardio), No clicks present (Cardio), No murmurs present (Cardio) and No rub (Cardio) RATE: regular rate RHYTHM: regular rhythm HEART SOUNDS: S1 normal heart sound present and S2 normal heart sound present GI: COMMON NORMALS: Normal to inspection, nondistended, normoactive bowel sounds present, Soft to palpation, non-tender, No hepatosplenomegaly present and no masses INSPECTION: No caput medusae present and No Fluid wave present AUSCULTATION: Yes normoactive bowel sounds PALPATION: Yes Soft to palpation, No Guarding due to palpation present (GI), No Rigid due to palpation, Yes No hepatosplenomegaly present and No Ascites present PERCUSSION: no fluid wave RECTAL EXAM: Yes deferred Extremity: COMMON NORMALS: normal to inspection and full ROM NARRATIVE EXTREMITY EXAM: 2+ edema to the knees bilaterally Neuro: COMMON NORMALS: patient oriented x3, moves all extremities, no focal motor deficits and no sensory deficits noted SENSORIUM/ORIENTATION: Yes alert MENINGEAL SIGNS: Yes no meningeal signs Psych: COMMON NORMALS: mental status grossly normal, cooperative and speech normal SPEECH: Yes normal speech Skin: COMMON NORMALS: no rashes or lesions noted GENERAL SKIN EXAM: no rashes or lesions noted Course Vital Signs: Vital signs: Vital Signs Temperature 98.4 F 08/01/23 04:00 Pulse Rate 94 08/01/23 04:00 Respiratory Rate 24 H 08/01/23 04:00 Blood Pressure 143/96 08/01/23 04:00 Pulse Oximetry 94 08/01/23 04:00 Oxygen Delivery Me thod Room Air 08/01/23 04:00 MDM - Abdominal Pain Lab Data 07/31/23 23:32 07/31/23 23:32 Labs/Radiology: Radiology Impressions Chest X-Ray 07/31/23 23:20 IMPRESSION: Mild cardiac enlargement without overt interstitial edema. KUB X-Ray 08/01/23 00:30 IMPRESSION: Relative lack of bowel gas, with overall nonobstructive plain radiographic bowel-gas pattern. Laboratory Results WBC 7.03 10^3/uL (3.29-11.43) 07/31/23 23:32 RBC 4.04 10^6/uL (3.85-5.65) 07/31/23 23:32 Hgb 12.90 g/dL (11.27-16.99) 07/31/23 23:32 Hct 39.4 % (37-53) 07/31/23 23:32 MCV 97.5 fl (82-101) 07/31/23 23: MCH 31.9 pg (27-33) 07/31/23 23: MCHC 32.7 g/dL (30-55) 07/31/23 23:32 RDW 12.7 % (12.1-15.1) 07/31/23 23:32 Plt Count 246 10^3/cmm (157-399) 07/31/23 23:32 MPV 10.5 fL (7.4-10.4) H 07/31/23 23:32 Neut % (Auto) 63.3 % 07/31/23 23:32 Lymph % (Auto) 25.7 % 07/31/23 23:32 [place] % (Auto) 6.7 % 07/31/23 23:32 Eos % (Auto) 3.4 % 07/31/23 23:32 Baso % (Auto) 0.6 % 07/31/23 23:32 Neut # (Auto) 4.45 10^3/uL (1.8-7.7) 07/31/23 23:32 Lymph # (Auto) 1.8 10^3/uL (0.8-4.8) 07/31/23 23:32 [place] # (Auto) 0.5 10^3/uL (0.2-0.9) 07/31/23 23:32 Eos # (Auto) 0.2 10^3/uL (0.0-0.8) 07/31/23 23:32 Baso # (Auto) 0.0 10^3/uL (0.0-0.1) 03/25/24 23:32 Nucleated RBC % (auto) 0 % 07/31/23 23: Nucleated RBCs # 0.0 /100WBC 07/31/23 23:32 PT 14.10 SECONDS (12.1-14.9) 07/31/23 23:32 INR 1.06 (0.8-1.2) 07/31/23 23:32 APTT 31.9 SECONDS (23.9-36.7) 07/31/23 23:32 Sodium 138 mmol/L (136-145) 07/31/23 23:32 Potassium 6.1 mmol/L (3.5-5.1) H 07/31/23 23:32 Chloride 104 mmol/L (98-107) 07/31/23 23:32 Carbon Dioxide 23 mmol/L (22-29) 07/31/23 23:32 Anion Gap 17.1 (5-19) 07/31/23 23:32 BUN 31 mg/dL (6-20) H 07/31/23 23:32 Creatinine 1.8 mg/dL (0.7-1.2) H 07/31/23 23:32 GFR Calculation 39.4 mL/min (90-130) L 07/31/23 23:32 Glucose 160 mg/dL (65-115) H 07/31/23 23:32 Calculated Osmolality 296 mOsm/kg (285-295) H 07/31/23 23:32 Calcium 8.7 mg/dL (8.5-10.5) 07/31/23 23:32 Total Bilirubin 0.3 mg/dL (0.15-1.2) 07/31/23 23:32 AST 114 U/L (0-40) H 07/31/23 23:32 ALT 109 U/L (0-41) H 07/31/23 23:32 Alkaline Phosphatase 244 U/L (40-130) H 07/31/23 23:32 Ammonia 12 umol/L (16-60) L 07/31/23 23:32 Troponin T Baseline 557 ng/L (0-15) H* 07/31/23 23:32 NT-Pro-B Natriuret Pep 94106 pg/mL (0-125) H 07/31/23 23:32 Total Protein 6.9 g/dL (6.6-8.7) 07/31/23 23:32 Albumin 3.7 g/dL (3.5-5.2) 07/31/23 23:32 Globulin 3.2 g/dL (1.3-4.6) 07/31/23 23:32 Lipase 41 U/L (13-60) 07/31/23 23:32 Discharge Plan Discharge Patient Disposition: Admitted As Inpatient Admit Provider: Amy Noladn Clinical Impression: Acute hyperkalemia Acute renal failure Qualifiers: Acute renal failure type: unspecified Qualified Code(s): N17.9 - Acute kidney failure, unspecified CHF (congestive heart failure) Qualifiers: Heart failure type: systolic Heart failure chronicity: chronic Qualified Code(s): I50.22 - Chronic systolic (congestive) heart failure Condition: Stable Coding Level of Care Code ED Administrative Office Assistant for Chg Fwd Documented by User: Stewart Dejesus MD 08/01/23 00:32 HPI - Abdominal Pain General: Chief Complaint: Abdominal Pain Stated Complaint: chest pain sob n/v swollen Time Seen by Provider: 07/31/23 23:09 [facility] ED PFSH: Medical History (Updated 08/01/23 @ 01:01 by Amy Noland MD) CHF (congestive heart failure) Stroke Acute right arterial ischemic stroke, middle cerebral artery (MCA) Dyslipidemia Congestive heart failure Last ejection fraction 35%. CAD (coronary artery disease) Has had stents in RCA, LAD, circumflex with last procedure being angioplasty LAD stent 2018 Ischemic cardiomyopathy History of heart attack Diabetes mellitus Palmar fascial fibromatosis [dupuytren] Surgical History (Updated 08/01/23 @ 01:01 by Amy Noland MD) Hx of shoulder surgery History of eye surgery History of coronary angiogram Family History Other CAD (coronary artery disease) Diabetes Social History Smoking and tobacco/nicotine status: never used tobacco/nicotine Alcohol intake: never Substance/Drug Use: never Course Vital Signs: Vital signs: Vital Signs Temperature 98.4 F 08/01/23 04:00 Pulse Rate 94 08/01/23 04:00 Respiratory Rate 24 H 08/01/23 04:00 Blood Pressure 143/96 08/01/23 04:00 Pulse Oximetry 94 08/01/23 04:00 Oxygen Delivery Me thod Room Air 08/01/23 04:00 MDM - Abdominal Pain Medical Decision Making I discussed the patient's history of present illness, physical exam findings, pertinent labs, pertinent radiographic exams and plan of care with the midlevel provider. I did personally have a [id number] evaluation and discussion with the patient regarding the plan of care and the need for further admission/transfer. Lab Data 07/31/23 23:32 07/31/23 23:32 Labs/Radiology: Radiology Impressions Chest X-Ray 07/31/23 23:20 IMPRESSION: Mild cardiac enlargement without overt interstitial edema. KUB X-Ray 08/01/23 00:30 IMPRESSION: Relative lack of bowel gas, with overall nonobstructive plain radiographic bowel-gas pattern. Laboratory Results WBC 7.03 10^3/uL (3.29-11.43) 07/31/23 23:32 RBC 4.04 10^6/uL (3.85-5.65) 07/31/23 23:32 Hgb 12.90 g/dL (11.27-16.99) 07/31/23 23:32 Hct 39.4 % (37-53) 07/31/23 23:32 MCV 97.5 fl (82-101) 07/31/23 23:32 MCH 31.9 pg (27-33) 07/31/23 23:32 MCHC 32.7 g/dL (30-55) 07/31/23 23:32 RDW 12.7 % (12.1-15.1) 07/31/23 23:32 Plt Count 246 10^3/cmm (157-399) 07/31/23 23:32 MPV 10.5 fL (7.4-10.4) H 07/31/23 23:32 Neut % (Auto) 63.3 % 07/31/23 23: Lymph % (Auto) 25.7 % 07/31/23 23:32 [place] % (Auto) 6.7 % 07/31/23 23:32 Eos % (Auto) 3.4 % 07/31/23 23:32 Baso % (Auto) 0.6 % 07/31/23 23:32 Neut # (Auto) 4.45 10^3/uL (1.8-7.7) 07/31/23 23: Lymph # (Auto) 1.8 10^3/uL (0.8-4.8) 07/31/23 23: [place] # (Auto) 0.5 10^3/uL (0.2-0.9) 07/31/23 23: Eos # (Auto) 0.2 10^3/uL (0.0-0.8) 07/31/23 23: Baso # (Auto) 0.0 10^3/uL (0.0-0.1) 07/31/23 23: Nucleated RBC % (auto) 0 % 07/31/23 23: Nucleated RBCs # 0.0 /100WBC 07/31/23 23:32 PT 14.10 SECONDS (12.1-14.9) 07/31/23 23:32 INR 1.06 (0.8-1.2) 07/31/23 23:32 APTT 31.9 SECONDS (23.9-36.7) 07/31/23 23:32 Sodium 138 mmol/L (136-145) 07/31/23 23:32 Potassium 6.1 mmol/L (3.5-5.1) H 07/31/23 23:32 Chloride 104 mmol/L (98-107) 07/31/23 23:32 Carbon Dioxide 23 mmol/L (22-29) 07/31/23 23:32 Anion Gap 17.1 (5-19) 07/31/23 23:32 BUN 31 mg/dL (6-20) H 07/31/23 23:32 Creatinine 1.8 mg/dL (0.7-1.2) H 07/31/23 23:32 GFR Calculation 39.4 mL/min (90-130) L 07/31/23 23:32 Glucose 160 mg/dL (65-115) H 07/31/23 23:32 Calculated Osmolality 296 mOsm/kg (285-295) H 07/31/23 23:32 Calcium 8.7 mg/dL (8.5-10.5) 07/31/23 23:32 Total Bilirubin 0.3 mg/dL (0.15-1.2) 07/31/23 23:32 AST 114 U/L (0-40) H 07/31/23 23:32 ALT 109 U/L (0-41) H 07/31/23 23:32 Alkaline Phosphatase 244 U/L (40-130) H 07/31/23 23:32 Ammonia 12 umol/L (16-60) L 07/31/23 23:32 Troponin T Baseline 557 ng/L (0-15) H* 07/31/23 23:32 NT-Pro-B Natriuret Pep 11145 pg/mL (0-125) H 07/31/23 23:32 Total Protein 6.9 g/dL (6.6-8.7) 07/31/23 23:32 Albumin 3.7 g/dL (3.5-5.2) 07/31/23 23:32 Globulin 3.2 g/dL (1.3-4.6) 07/31/23 23:32 Lipase 41 U/L (13-60) 07/31/23 23:32 All radiology interpretation(s) finalized by discharge Discharge Plan Discharge Patient Disposition: Admitted As Inpatient Admit Provider: Amy Noland Clinical Impression: Acute hyperkalemia Acute renal failure Qualifiers: Acute renal failure type: unspecified Qualified Code(s): N17.9 - Acute kidney failure, unspecified CHF (congestive heart failure) Qualifiers: Heart failure type: systolic Heart failure chronicity: chronic Qualified Code(s): I50.22 - Chronic systolic (congestive) heart failure Condition: Stable Coding Level of Care Code ED Administrative Office Assistant for Chg Bellad Documented by User: Angelo Cui DO 08/01/23 05:37 HPI - Abdominal Pain General: Chief Complaint: Abdominal Pain Stated Complaint: chest pain sob n/v swollen Time Seen by Provider: 07/31/23 23:09 [facility] ED PFSH: Medical History (Updated 08/01/23 @ 01:01 by Amy Noland MD) CHF (congestive heart failure) Stroke Acute right arterial ischemic stroke, middle cerebral artery (MCA) Dyslipidemia Congestive heart failure Last ejection fraction 35%. CAD (coronary artery disease) Has had stents in RCA, LAD, circumflex with last procedure being angioplasty LAD stent 2017 Ischemic cardiomyopathy History of heart attack Diabetes mellitus Palmar fascial fibromatosis [dupuytren] Surgical History (Updated 08/01/23 @ 01:01 by Amy Noland MD) Hx of shoulder surgery History of eye surgery History of coronary angiogram Family History Other CAD (coronary artery disease) Diabetes Social History Smoking and tobacco/nicotine status: never used tobacco/nicotine Alcohol intake: never Substance/Drug Use: never Course Vital Signs: Vital signs: Vital Signs Temperature 98.4 F 08/01/23 04:00 Pulse Rate 94 08/01/23 04:00 Respiratory Rate 24 H 08/01/23 04:00 Blood Pressure 143/96 08/01/23 04:00 Pulse Oximetry 94 08/01/23 04:00 Oxygen Delivery Me thod Room Air 08/01/23 04:00 MDM - Abdominal Pain Medical Decision Making I discussed the patient's history of present illness, physical exam findings, pertinent labs, pertinent radiographic exams and plan of care with the midlevel provider. I did personally have a [id number] evaluation and discussion with the patient regarding the plan of care and the need for further admission/transfer. Chart reviewed. Lab Data 07/31/23 23:32 07/31/23 23:32 Labs/Radiology: Radiology Impressions Chest X-Ray 07/31/23 23:20 IMPRESSION: Mild cardiac enlargement without overt interstitial edema. KUB X-Ray 08/01/23 00:30 IMPRESSION: Relative lack of bowel gas, with overall nonobstructive plain radiographic bowel-gas pattern. Laboratory Results WBC 7.03 10^3/uL (3.29-11.43) 07/31/23 23: RBC 4.04 10^6/uL (3.85-5.65) 07/31/23 23:32 Hgb 12.90 g/dL (11.27-16.99) 07/31/23 23:32 Hct 39.4 % (37-53) 07/31/23 23:32 MCV 97.5 fl (82-101) 07/31/23 23:32 MCH 31.9 pg (27-33) 07/31/23 23: MCHC 32.7 g/dL (30-55) 07/31/23 23: RDW 12.7 % (12.1-15.1) 07/31/23 23: Plt Count 246 10^3/cmm (157-399) 07/31/23 23:32 MPV 10.5 fL (7.4-10.4) H 07/31/23 23:32 Neut % (Auto) 63.3 % 07/31/23 23:32 Lymph % (Auto) 25.7 % 07/31/23 23:32 [place] % (Auto) 6.7 % 07/31/23 23:32 Eos % (Auto) 3.4 % 07/31/23 23:32 Baso % (Auto) 0.6 % 07/31/23 23:32 Neut # (Auto) 4.45 10^3/uL (1.8-7.7) 07/31/23 23:32 Lymph # (Auto) 1.8 10^3/uL (0.8-4.8) 07/31/23 23:32 [place] # (Auto) 0.5 10^3/uL (0.2-0.9) 07/31/23 23: Eos # (Auto) 0.2 10^3/uL (0.0-0.8) 07/31/23 23: Baso # (Auto) 0.0 10^3/uL (0.0-0.1) 07/31/23 23:32 Nucleated RBC % (auto) 0 % 07/31/23 23: Nucleated RBCs # 0.0 /100WBC 07/31/23 23:32 PT 14.10 SECONDS (12.1-14.9) 07/31/23 23:32 INR 1.06 (0.8-1.2) 07/31/23 23:32 APTT 31.9 SECONDS (23.9-36.7) 07/31/23 23:32 Sodium 138 mmol/L (136-145) 07/31/23 23:32 Potassium 6.1 mmol/L (3.5-5.1) H 07/31/23 23:32 Chloride 104 mmol/L (98-107) 07/31/23 23:32 Carbon Dioxide 23 mmol/L (22-29) 07/31/23 23:32 Anion Gap 17.1 (5-19) 07/31/23 23:32 BUN 31 mg/dL (6-20) H 07/31/23 23:32 Creatinine 1.8 mg/dL (0.7-1.2) H 07/31/23 23:32 GFR Calculation 39.4 mL/min (90-130) L 07/31/23 23:32 Glucose 160 mg/dL (65-115) H 07/31/23 23:32 Calculated Osmolality 296 mOsm/kg (285-295) H 07/31/23 23:32 Calcium 8.7 mg/dL (8.5-10.5) 07/31/23 23:32 Total Bilirubin 0.3 mg/dL (0.15-1.2) 07/31/23 23:32 AST 114 U/L (0-40) H 07/31/23 23:32 ALT 109 U/L (0-41) H 07/31/23 23:32 Alkaline Phosphatase 244 U/L (40-130) H 07/31/23 23:32 Ammonia 12 umol/L (16-60) L 07/31/23 23:32 Troponin T Baseline 557 ng/L (0-15) H* 07/31/23 23:32 NT-Pro-B Natriuret Pep 76597 pg/mL (0-125) H 07/31/23 23:32 Total Protein 6.9 g/dL (6.6-8.7) 07/31/23 23:32 Albumin 3.7 g/dL (3.5-5.2) 07/31/23 23:32 Globulin 3.2 g/dL (1.3-4.6) 07/31/23 23:32 Lipase 41 U/L (13-60) 07/31/23 23:32 Discharge Plan Discharge Patient Disposition: Admitted As Inpatient Admit Provider: Amy Noland Clinical Impression: Acute hyperkalemia Acute renal failure Qualifiers: Acute renal failure type: unspecified Qualified Code(s): N17.9 - Acute kidney failure, unspecified CHF (congestive heart failure) Qualifiers: Heart failure type: systolic Heart failure chronicity: chronic Qualified Code(s): I50.22 - Chronic systolic (congestive) heart failure Condition: Stable Coding Level of Care Code ED Administrative Office Assistant for 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
[2023-07-31 23:38] LABS: Basophils % 0.6 %; Eosinophils # 0.2 10^3/uL (0.0-0.8); Eosinophils % 3.4 %; Hematocrit 39.4 % (37-53); Lymphocytes # 1.8 10^3/uL (0.8-4.8); Lymphocytes % 25.7 %; Mean Corpuscular HGB Conc 32.7 g/dL (30-55); Mean Corpuscular Hemoglobin 31.9 pg (27-33); Mean Corpuscular Volume 97.5 fl (82-101); Mean Platelet Volume 10.5 fL (7.4-10.4); Monocytes # 0.5 10^3/uL (0.2-0.9); Monocytes % 6.7 %; Neutrophils # 4.45 10^3/uL (1.8-7.7); Neutrophils % 63.3 %; Nucleated Red Blood Cells % 0 %; Platelet Count 246 10^3/cmm (157-399); Red Blood Count 4.04 10^6/uL (3.85-5.65); Red Cell Distribution Width 12.7 % (12.1-15.1); White Blood Count 7.03 10^3/uL (3.29-11.43)
[2023-07-31 23:48] LABS: INR 1.06 (0.8-1.2)
[2023-07-31 23:49] LABS: Partial Thromboplastin Time 31.9 SECONDS (23.9-36.7)
[2023-07-31] MEDS: ondansetron 2 mg/ML SDV 2 mL 4 MG IVP (23:50)
[2023-07-31 23:59] LABS: Ammonia 12 umol/L (16-60)
[2023-08-01] VITALS (107 sets, daily range): BP systolic 114–147; BP diastolic 72–103; PULSE 0–104; RESP 10–27; TEMP 36.6–36.9; O2SAT 86–99
--- NOTE | 2023-08-01 | ECG_ITS ---
[facility] Test Date: 2023-08-01 Pat Name: Sebastien Martinez Department: Room: 112 Gender: Male Pattern Mechanic: Ashley nAdersonfus : 1965 Requested By: Amy Noland Order Number: [id number] Albina MD: Mainor Bellamy M.D. Interpretive Statements NAME OF STUDY: LEXISCAN SESTAMIBI STRESS TEST INDICATION: [Nstemi, ] Procedure: At the baseline, the blood pressure was 139/93 mmHg with a heart rate of 93 bpm. The electrocardiogram showed normal sinus rhythm, normal axis with normal ST and T's. The Lexiscan was infused over a period of 20 seconds. A total of 0.4 mg of Lexiscan was infused. The stress phase was continued for a total of 5 minutes. Heart rate was at the end of stress phase was 100 bpm and a blood pressure of 117/72 mmHg. The EKG at the peak infusion revealed normal sinus rhythm with no significant ST-T wave changes. Sestamibi was injected 20 seconds after the Lexiscan infusion. Blood pressure at the end of recovery phase was 119/72 mmHg with a heart rate of 100 bpm. Conclusion: 1. Normal EKG response to Lexiscan infusion 2. No Lexiscan induced chest pain or cardiac arrhythmia. 3. Normal blood pressure and heart rate response. 4. Sestamibi/sestamibi perfusion scan pending; see separate report. Electronically Signed On 08-07-2023 12:24:06 CDT by Mainor Bellamy M.D. [email or web address]
[2023-08-01 00:10] LABS: Alanine Aminotransferase 109 U/L (0-41); Albumin Level 3.7 g/dL (3.5-5.2); Alkaline Phosphatase 244 U/L (40-130); Anion Gap 17.1 (5-19); Aspartate Amino Transferase 114 U/L (0-40); Blood Urea Nitrogen 31 mg/dL (6-20); Calcium 8.7 mg/dL (8.5-10.5); Carbon Dioxide 23 mmol/L (22-29); Chloride 104 mmol/L (98-107); Creatinine Clr Calc Pharmacy 46.3602; Globulin 3.2 g/dL (1.3-4.6); Glomerular Filtration Rate 39.4 mL/min (90-130); Glucose 160 mg/dL (65-115); Lipase 41 U/L (13-60); NT Pro B Type Natriuretic Pept 18555 pg/mL (0-125); Osmolality Calculated 296 mOsm/kg (285-295); Potassium 6.1 mmol/L (3.5-5.1); Sodium 138 mmol/L (136-145); Total Bilirubin 0.3 mg/dL (0.15-1.2); Total Protein 6.9 g/dL (6.6-8.7)
--- NOTE | 2023-08-01 00:27 | P.HP_ITS ---
Providers/Chief Complaint 2 Primary Care Provider: Bret Gale MD Chief Complaint: chest pain sob n/v swollen History of Present Illness Sebastien Martinez is a 57 year old male with history of ischemic cardiomyopathy EF 30 to 35%, chronic kidney disease, new baseline creatinine is usually on 2 which is worsened from 1, has started using Lasix 40 mg, follows up with cardiology clinic outpatient, presented with abdominal pain. Patient is stating that is lasting for 3 years ago he is on aspirin, does not take Plavix because he had a stroke on Plavix, his neurologist is in [place], today presenting after taking Lasix at 6 PM, after taking Lasix start experiencing abdominal pain and nausea. Patient stating that he has gained 6 pounds in last 1 week, for last 7 days he has been drinking 4 bottles of Gatorade 500 mL each and today was the first day he took Lasix because of orthopnea PND and weight gain. Patient was dehydrated that is why his primary care physician asked him to drink a lot of fluid. He recently had liver ultrasound which did not show any significant pathology there was some consideration given to HIDA scan. No history of gallstones. Patient is not endorsing significant episodes of vomiting after eating. He consider himself fairly active for his cardiomyopathy. Stating that no one has ever discussed AICD placement or LifeVest. His recent echo still showing reduced ejection fraction. In the ER he has been diagnosed with acute CHF exacerbation, acute on chronic kidney disease, hyperkalemia, congestive hepatopathy Clinical looks fluid overloaded Blood pressure 140/90 mmHg No active chest pain Family at the bedside Patient is diabetic takes Tresiba and sliding scale, Lantus is not covered by the insurance, Only medication for blood pressure is metoprolol 12.5 mg twice daily Review of Systems 2 Const: Reports: body aches, change in weight and fatigue Eyes: Denies: change in vision ENMT: Denies: throat pain Card: Reports: swelling of feet/ankles Resp: Reports: dyspnea GI: Reports: abdominal pain and nausea : Denies: flank pain Musc: Denies: neck pain Medications/Allergies Home Medications Medication Instructions Recorded Confirmed Last Taken Type Probiotic Gummies 1 tab PO DAILY 07/05/21 07/28/23 07/04/21 History meclizine 25 mg tablet 25 mg PO DAILY PRN Dizziness 07/05/21 07/28/23 Unknown History aspirin 81 mg tablet,delayed 81 mg PO DAILY #90 tabs 07/07/21 07/28/23 Unknown Rx release atorvastatin 40 mg tablet 40 mg PO DAILY #30 tabs 07/07/21 07/28/23 Unknown Rx clopidogrel 75 mg tablet 75 mg PO DAILY #90 tabs 11/10/22 07/28/23 Unknown Rx diphenoxylate-atropine 2.5 1 tab PO DAILY PRN 11/10/22 07/28/23 Unknown History mg-0.025 mg tablet (Lomotil) insulin lispro 100 unit/mL 4 unit SUBCUT TID 11/10/22 07/28/23 Unknown History subcutaneous pen (Humalog KwikPen (U-100) Insulin) metoprolol tartrate 25 mg tablet 12.5 mg PO BID 11/10/22 07/28/23 Unknown History multivitamin with minerals-folic tab PO DAILY 11/10/22 07/28/23 Unknown History acid 200 mcg chewable tablet (Men's Multivitamin Gummies) furosemide 40 mg tablet 40 mg PO DAILY #60 tabs 07/31/23 Unknown Rx Allergies Allergy/AdvReac Type Severity Reaction Status Date / Time Opioids - Morphine Analogues AdvReac Mild Unknown Verified 07/31/23 23:04 PFSH Acute 2 PFSH: Medical History (Updated 08/01/23 @ 01:01 by Amy Noland MD) CHF (congestive heart failure) Stroke Acute right arterial ischemic stroke, middle cerebral artery (MCA) Dyslipidemia Congestive heart failure Last ejection fraction 35%. CAD (coronary artery disease) Has had stents in RCA, LAD, circumflex with last procedure being angioplasty LAD stent 2018 Ischemic cardiomyopathy History of heart attack Diabetes mellitus Palmar fascial fibromatosis [dupuytren] Surgical History (Updated 08/01/23 @ 01:01 by Amy Noland MD) Hx of shoulder surgery History of eye surgery History of coronary angiogram Family History Other CAD (coronary artery disease) Diabetes Social History Smoking and tobacco/nicotine status: never used tobacco/nicotine Alcohol intake: never Substance/Drug Use: never Vitals/I&O/Wt Last Vital Signs Temp 98.0 F 07/31/23 22:58 Pulse 90 08/01/23 00:00 Resp 16 08/01/23 00:00 BP 141/102 08/01/23 00:00 Pulse Ox 99 08/01/23 00:00 O2 Del Method Room Air 07/31/23 22:58 Weight last 48 hrs Weight 77.564 kg Physical Exam 2 Narrative: Patient currently on room air Hypertension No active chest pain Abdomen soft, mild distention De Souza sign negative Neuro extremity 3+ edema Active sign of heart failure Pleasant cooperative Currently room air Not able to lay flat Topic angioplasty Mild crackles at base of the lungs no significant wheezing Data 07/31/23 23:32 07/31/23 23:32 A&P Assessment and plan (1) Hypertension: Qualifiers: Hypertension type: primary hypertension Qualified Code(s): I10 - Essential (primary) hypertension (2) Ischemic cardiomyopathy: (3) Congestive heart failure: Qualifiers: Heart failure chronicity: chronic Heart failure type: systolic Qualified Code(s): I50.22 - Chronic systolic (congestive) heart failure (4) CAD (coronary artery disease): Qualifiers: Associated angina: without angina Coronary Disease-Associated Artery/Lesion type: [place] artery [place] vs. transplanted heart: [place] heart Qualified Code(s): I25.10 - Atherosclerotic heart disease of [place] coronary artery without angina pectoris (5) Diabetes mellitus: (6) Acute renal failure: Qualifiers: Acute renal failure type: unspecified Qualified Code(s): N17.9 - Acute kidney failure, unspecified (7) Acute hyperkalemia: Plan Acute systolic CHF exacerbation Ischemic cardiomyopathy Patient was drinking almost 2 L for last 7 days He took first dose of Lasix today which was 40 mg from 6 PM Clinical signs of fluid overload Will give IV Lasix every 12 hours Target for negative fluid balance up to 2.5 to 3 L in neck 72 hours Needs optimization of goal-directed medical therapy Follows up with Dr. Reilly outpatient Congestive hepatopathy De Souza sign negative Liver ultrasound unremarkable Hepatitis panel negative No active signs of jaundice Bilirubin is normal Acute on chronic kidney disease I do suspect cardiorenal syndrome at this point Anticipate improvement with diuresis patient does not want Drake catheter placement work urine output He is agreeable for use of urinal at this point Hyperkalemia Will give calcium gluconate, Kayexalate, insulin 10 units along dextrose Recheck BMP Hypertension Patient only takes metoprolol which needs to be readjusted patient consistently is around 140/90 m mercury Not a good candidate for lisinopril because of chronic kidney disease, I would avoid amlodipine because of lower extremity edema He may benefit from isosorbide dinitrate considering low EF Not a good candidate to be on Entresto or spironolactone Significant ischemic cardiomyopathy I have initiated discussion for LifeVest and AICD His EF has not improved despite PCI Will need cardiac consultation in the morning Cardiac diet possible restriction Consistent carb diet Full code DVT prophylaxis: Heparin History of stroke: Only takes aspirin along atorvastatin Does not take Plavix Attestations 2 Medical Necessity Statement*: More than 2 midnights anticipated for management of acute on chronic kidney disease, heart failure exacerbation, Diagnoses Primary hypertension I10 Hypertension type: primary hypertension Ischemic cardiomyopathy I25.5 Chronic systolic congestive heart failure I50.22 Heart failure chronicity: chronic Heart failure type: systolic Coronary artery disease involving [place] coronary artery of [place] heart without angina pectoris I25.10 Associated angina: without angina Coronary Disease-Associated Artery/Lesion type: [place] artery [place] vs. transplanted heart: [place] heart Diabetes mellitus E11.9 Acute renal failure N17.9 Acute renal failure type: unspecified Acute hyperkalemia E87.5
--- NOTE | 2023-08-01 00:30 | XRR_ITS ---
PROCEDURE INFORMATION: Exam: XR Abdomen Exam date and time: 08/01/2023 12:32 AM Age: 57 years old Clinical indication: Bloating and nausea and vomiting; Patient HX: Abd distention with n/v; Additional info: Pain TECHNIQUE: Imaging protocol: Radiologic exam of the abdomen. Views: Frontal supine view of the abdomen. 1 View. COMPARISON: [place] liver [id number] 07/27/2023 12:00 PM FINDINGS: Gastrointestinal tract: Relative lack of bowel gas without overt radiographic dilatation of the bowel or air-fluid levels on this single-view study. Limited evaluation for free intraperitoneal air. No evidence of pneumatosis. Bones/joints: Unremarkable. XR/XR KUB portable [id number] IMPRESSION: Relative lack of bowel gas, with overall nonobstructive plain radiographic bowel-gas pattern.
--- NOTE | 2023-08-01 01:25 | ECG_ITS ---
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 Measurements Intervals [place] Rate: 86 P: 55 MT: 160 QRS: 6 QRSD: 95 T: 120 QT: 378 QTc: 454 Interpretive Statements SINUS RHYTHM LEFT ATRIAL ENLARGEMENT [-0.15mV P-WAVE IN V1/V2] SEPTAL MYOCARDIAL INFARCTION , PROBABLY OLD [40+ ms Q WAVE IN V1/V2] INTERPRETATION BASED ON A DEFAULT AGE OF 40 YEARS Compared to ECG 07/31/2023 22:59:10 No significant changes Electronically Signed On 08-02-2023 23:39:05 CDT by Liza Steward M.D. [id number]
[2023-08-01 01:40] LABS: Troponin(5th) Baseline 557 ng/L (0-15)
--- NOTE | 2023-08-01 01:52 | NMCV_ITS ---
NM ayla perf SPECT r/s* [id number] Sebastein Martinez Age: 57 Gender: M : 1965 Exam Date: 08/01/2023 06:31 Ordering Phys: Amy Noland MD Technologist: ELLIE Aguila Exam Location: [facility] Indications: CHEST PAIN STRESS TEST Please see separate stress test report in [facility] for full findings IMAGE PROTOCOL Rest/Stress 1 Lexiscan Day Radiopharmaceutical Dose (mCi) Administration Site Administered by Rest: Tc-99m 10.8 IV ELLIE Siu Sestamibi Stress:Tc-99m 32.5 IV ELLIE Siu Sestamibi Rest: 01-Aug-2023 60 Discovery 630 Stress: 01-Aug-2023 30 Discovery 630 0.4mg Lexiscan. Images obtained in supine and prone position. SPECT RESULTS Technical Quality: Excellent Raw Data Analysis: Normal Image Corrections: No attenuation or motion correction applied Summed Stress Score: 30 Summed Rest Score: 25 Summed Difference Score: 5 PERFUSION FINDINGS Large area of moderate to severely decreased tracer uptake involving the anterior, anterolateral, inferolateral, inferior, apical and anteroseptal regions. Very small areas of reversibility was noted in the anteroseptal, apical and inferior regions. FUNCTIONAL RESULTS (calculated via Gated SPECT) Stress Image LV EF (%): 29 Stress EDV (mL):190 TID: 1.02 Stress ESV (mL):134 FUNCTIONAL FINDINGS: Segmental wall motion analysis revealed diffuse hypokinesia of the anteroapical anterior and apical regions. IMPRESSIONS 1. Myocardial perfusion imaging revealing large area of persistent decreased tracer uptake anterior, anteroseptal, anterolateral, inferior, inferolateral and apical regions with a very small areas of reversibility in the anteroseptal, apical and inferior regions suggesting extensive myocardial scarring in the distribution of all the 3 coronary arteries with small areas of michell-infarction ischemia involving the left anterior descending and right coronary arteries. 2. Diminished LV ejection fraction 29%. 3. LV wall motion abnormalities as mentioned above. 4. Moderately dilated LV cavity with an end-systolic volume of 134 mL. No similar previous studies are available for comparison Dr Liza Steward MD [facility] (Electronically Signed) Final Date: 01 August 2023 10:56 S
[2023-08-01] MEDS: FUROsemide 10 mg/mL SDV 4mL 40 MG IVP ×2 (02:17→13:06)
[2023-08-01] MEDS: sodium polystyrene sulfonate 15 gm/60 mL Btl PO (02:17)
[2023-08-01 02:21] LABS: Troponin 5 2HR Delta -52.4 ABS# (0-10)
[2023-08-01 02:25] LABS: Troponin 5 2HR 504.6 ng/L (0-15)
[2023-08-01] MEDS: calcium gluconate 0.1 gm/mL 10% SDV 10mL 1 GM IVP (02:39)
[2023-08-01] MEDS: glucose 40% Gel 15 gm UDC PO (02:40)
[2023-08-01] MEDS: insulin regular-human 10 UNIT in SYRINGE 1 EACH IVP (02:41)
[2023-08-01 02:53] LABS: Glucose Point of Care 138 mg/dL (70-110)
[2023-08-01] MEDS: ondansetron 2 mg/ML SDV 2 mL 4 MG IVP (02:54)
[2023-08-01] MEDS: heparin 5,000 unit/mL INJ 1 mL IV (03:00)
--- NOTE | 2023-08-01 03:03 | ECG_ITS ---
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 Measurements Intervals [place] Rate: 91 P: 51 WI: 169 QRS: 10 QRSD: 88 T: 144 QT: 360 QTc: 444 Interpretive Statements SINUS RHYTHM LEFT ATRIAL ENLARGEMENT [-0.15mV P-WAVE IN V1/V2] SEPTAL MYOCARDIAL INFARCTION , PROBABLY OLD [40+ ms Q WAVE IN V1/V2] Compared to ECG 08/01/2023 01:25:36 No significant changes Electronically Signed On 08-02-2023 23:58:39 CDT by Liza Steward M.D. [id number]
[2023-08-01] MEDS: heparin drip 25,000 UNIT/500 ML PREMIX 22.9200000000000017 UNIT IV (03:05)
[2023-08-01 03:34] LABS: Specific Gravity, Urine 1.015 (1.005-1.030); Urine Appearance Clear (CLEAR); Urine Color Light yellow (Yellow); pH Urine 5 (5-7)
[2023-08-01 03:35] LABS: Add Urine Culture? No; Add Urine Microscopic? YES; Bacteria Urine TRACE /hpf; Bilirubin Urine Neg (Negative); Blood Urine Neg (Negative); Glucose Urine UA 4+ (Normal); Ketones Urine Negative (Negative); Leukocyte Esterase Urine Negative (Negative); Mucus Urine TRACE /hpf; Nitrate Urine Negative (Negative); Protein Urine 1+ (Negative); RBC Urine 0-4 /hpf (0-2); Urobilinogen Urine Neg (Negative)
[2023-08-01] MEDS: aspirin 81 mg Chew Tablet 324 MG PO (04:09)
--- NOTE | 2023-08-01 04:54 | PC.NURSE ---
Patient refused laoding dose of plavix because it is too big of a pill. I crushed pill in applesauce and patient tried to eat it but was not able to continue. Dr Noland notified.
[2023-08-01 05:44] LABS: Basophils % 0.5 %; Eosinophils # 0.1 10^3/uL (0.0-0.8); Eosinophils % 1.2 %; Hematocrit 35.7 % (37-53); Lymphocytes # 1.2 10^3/uL (0.8-4.8); Lymphocytes % 14.6 %; Mean Corpuscular HGB Conc 33.1 g/dL (30-55); Mean Corpuscular Hemoglobin 32.1 pg (27-33); Mean Platelet Volume 10.9 fL (7.4-10.4); Monocytes # 0.5 10^3/uL (0.2-0.9); Monocytes % 6.3 %; Neutrophils # 6.47 10^3/uL (1.8-7.7); Neutrophils % 77.2 %; Nucleated Red Blood Cells % 0 %; Platelet Count 219 10^3/cmm (157-399); Red Blood Count 3.68 10^6/uL (3.85-5.65); Red Cell Distribution Width 12.7 % (12.1-15.1); White Blood Count 8.38 10^3/uL (3.29-11.43)
[2023-08-01 06:05] LABS: Blood Urea Nitrogen 30 mg/dL (6-20); C Reactive Protein 3.2 mg/L (0.0-4.9); Calcium 8.8 mg/dL (8.5-10.5); Carbon Dioxide 21 mmol/L (22-29); Chloride 104 mmol/L (98-107); Creatinine Clr Calc Pharmacy 53.5878; Glomerular Filtration Rate 45.1 mL/min (90-130); Glucose 89 mg/dL (65-115); Magnesium 2.1 mg/dL (1.7-2.3); Osmolality Calculated 292 mOsm/kg (285-295); Phosphorus 4.5 mg/dL (2.5-4.5); Sodium 138 mmol/L (136-145); Troponin 5 6HR Delta -110.2 ng/L (0-12)
[2023-08-01 06:06] LABS: Troponin 5 6HR 446.8 ng/L (0-15)
[2023-08-01] MEDS: regadenoson 0.4 Mg/5 ml Syringe 0.400000000000000022 MG IVP (07:23)
--- NOTE | 2023-08-01 08:57 | PC.PHAR ---
[place] NEEDS TO GO ON RECORD PLEASE-PT CAN'T SWALLOW LARGE PILLS. 08/01/23
[2023-08-01] MEDS: clopidogrel 75 mg Tablet 300 MG PO (09:51)
[2023-08-01] MEDS: aspirin 81 mg EC Tablet PO (09:51)
[2023-08-01] MEDS: atorvastatin 40 mg Tablet PO (09:51)
[2023-08-01] MEDS: metoprolol tartrate 25 mg Tablet 12.5 MG PO ×2 (09:52→17:21)
[2023-08-01 10:21] LABS: Glucose Point of Care 164 mg/dL (70-110)
--- NOTE | 2023-08-01 10:47 | PM.CONSULT ---
Providers/Reason For Consult Consulting Physician/Specialty*: JAMSHID Steward MD/cardiology Reason for Consult*: Patient is elevated troponin T/congestive heart failure/atherosclerotic heart disease Requesting Physician: Dr. Gross Attending Physician: Stalin Gross Primary Care Provider: Bret Gale MD History of Present Illness History of Present Illness Sebastien Martinez is a 57 year old male with a history of atherosclerotic heart diseas, ischemic cardiomyopathy, is admitted to hospital with complaints of progressive shortness of breath and leg swelling. He was found to have elevated troponin T. He underwent a Myocardial perfusion imaging today. Cardiology consult is requested for further cardiac evaluation recommendations. This patient has a history of atherosclerotic heart diseas and had initial myocardial infarction in 2017. Cardiac arrest treatment at that time revealed high-grade proximal LAD lesion. He underwent angioplasty and stent placement of this lesion. A year later, he was admitted to the hospital with thrombotic occlusion of the stent. He underwent a repeat angioplasty and stent placement in the LAD. He also was found to have a high-grade lesion in the proximal RCA at that time which was intervened. The previously placed stent in the obtuse marginal artery was found to be patent. The LV ejection fraction was around 35% after the myocardial infarction. Patient apparently has been doing okay with no significant symptoms since then. In 2019, he was admitted to hospital with with a CVA. His symptoms resolved. He was discharged home. The following day, he was readmitted to hospital with recurrent CVA. He was found to have features of hemorrhagic transformation of the previous CVA. Patient was transferred to the [facility] in [place] under the care of the neurosurgery for possible neurosurgery intervention. They are it was decided not to intervene since the hemorrhage resolved spontaneously. Currently patient has no neurological deficit. Initially after the myocardial infarction the patient was placed on Plavix. For the possible resistance of Plavix, he was placed on Brilinta after the stent thrombosis. Because of the hemorrhagic transformation of the CVA, Brilinta was discontinued. The patient has been taking only the aspirin since then. He started having shortness of breath and swelling of the lower extremities 3 days ago. Progressively the symptoms were getting worse. He also had some nausea. Since hospital admission, his symptoms are improving. The swelling is also resolving. His initial troponin T was in the 500 range. The serial troponins showed a downward trend. He has no chest pain whatsoever at this point. Denies any fever, chills or cough. Review of Systems Narrative: CONSTITUTIONAL: No fever or chills. EYES: No blurring of vision or other visual disturbances lately. ENT: No hoarseness of voice, auditory disturbances or sore throat. CARDIOVASCULAR: As mentioned above. RESPIRATORY: No significant cough. GASTROINTESTINAL: No hematemesis or melena. GENITOURINARY: No dysuria or hematuria. INTEGUMENTARY: No skin rashes or history of skin cancer. NEURO: No transient ischemic attacks or amaurosis. PSYCHIATRIC: No history of psychosis or major depression. HEMATOLOGIC: No bleeding disorders or significant anemia. ENDOCRINE: No history of polyuria or polydipsia. MUSCULOSKELETAL: No recent joint pain or swelling. ALLERGY/IMMUNOLOGY: As mentioned above. Medications/Allergies Home Medications Medication Instructions Recorded Confirmed Last Taken Type Probiotic Gummies 1 tab PO DAILY 07/05/21 08/01/23 07/31/23 History aspirin 81 mg tablet,delayed 81 mg PO DAILY #90 tabs 07/07/21 08/01/23 08/01/23 Rx release atorvastatin 40 mg tablet 40 mg PO DAILY #30 tabs 07/07/21 08/01/23 07/31/23 Rx clopidogrel 75 mg tablet 75 mg PO DAILY #90 tabs 11/10/22 08/01/23 08/01/23 Rx diphenoxylate-atropine 2.5 1 tab PO DAILY PRN loose stools 11/10/22 08/01/23 Unknown History mg-0.025 mg tablet (Lomotil) insulin lispro 100 unit/mL 4 unit SUBCUT TID 11/10/22 08/01/23 07/31/23 History subcutaneous pen (Humalog KwikPen (U-100) Insulin) multivitamin with minerals-folic 1 tab PO DAILY 11/10/22 08/01/23 07/31/23 History acid 200 mcg chewable tablet (Men's Multivitamin Gummies) furosemide 40 mg tablet 40 mg PO DAILY #60 tabs 07/31/23 08/01/23 07/31/23 Rx dapagliflozin propanediol 10 mg 10 mg PO QAM 08/01/23 08/01/23 07/31/23 History tablet (Farxiga) fluticasone propionate 50 2 mcg intranasal DAILY 08/01/23 08/01/23 07/31/23 History mcg/actuation nasal spray,suspension insulin degludec 100 unit/mL (3 4 unit SUBCUT DAILY 08/01/23 08/01/23 07/31/23 History mL) subcutaneous pen (Tresiba FlexTouch U-100 insulin) loratadine 10 mg tablet (Claritin) 10 mg PO DAILY 08/01/23 08/01/23 07/31/23 History Allergies Allergy/AdvReac Type Severity Reaction Status Date / Time Opioids - Morphine Analogues AdvReac Mild Unknown Verified 07/31/23 23:04 Current Medications Generic Name Dose Route Start Last Admin Trade Name Freq PRN Reason Stop Dose Admin Aspirin 81 mg 08/01/23 09:00 08/01/23 09:51 Aspirin 81 Mg Ec Tablet PO 81 mg DAILY NIRALI Administration Atorvastatin Calcium 40 mg 08/01/23 09:00 08/01/23 09:51 Atorvastatin 40 Mg Tablet PO 40 mg DAILY NIRALI Administration Furosemide 40 mg 08/01/23 01:08 08/01/23 02:17 Furosemide 10 Mg/Ml Sdv 4ml IVP 40 mg Q12H NIRALI Administration Heparin Sodium (Porcine) 0 unit 08/01/23 01:42 08/01/23 03:00 Heparin 5,000 Unit/Ml Inj 1 Ml IV 4,100 unit PRN PRN Administration Heparin weight-base protocol Protocol Heparin Sodium/Sodium Chloride 25,000 unit in 500 mls @ 0 mls/hr 08/01/23 01:45 08/01/23 03:05 Heparin Drip IV 14 unit/kg/hr .Q0M NIRALI 22.92 mls/hr Administration Protocol Per Protocol Insulin Human Lispro 0 unit 08/01/23 08:00 08/01/23 10:02 Insulin Lispro 100 Unit/1 Ml SUBCUT Not Given [facility] Protocol Metoprolol Tartrate 12.5 mg 08/01/23 09:00 08/01/23 09:52 Metoprolol Tartrate 25 Mg Tablet PO 12.5 mg BID NIRALI Administration Ondansetron HCl 4 mg 08/01/23 01:08 08/01/23 02:54 Ondansetron 2 Mg/Ml Sdv 2 Ml IVP 4 mg Q6H PRN Administration NAUSEA AND VOMITING PFSH Acute PFSH: Medical History (Updated 08/01/23 @ 17:48 by Liza Steward MD) Acute right arterial ischemic stroke, middle cerebral artery (MCA) CHF (congestive heart failure) Stroke Dyslipidemia Congestive heart failure Last ejection fraction 35%. CAD (coronary artery disease) Has had stents in RCA, LAD, circumflex with last procedure being angioplasty LAD stent 2018 Ischemic cardiomyopathy History of heart attack Diabetes mellitus Palmar fascial fibromatosis [dupuytren] Surgical History Hx of shoulder surgery History of eye surgery History of coronary angiogram Family History Other CAD (coronary artery disease) Diabetes Social History Smoking and tobacco/nicotine status: never used tobacco/nicotine Alcohol intake: never Substance/Drug Use: never Vitals/I&O/Wt Last Vital Signs Temp 97.9 F 08/01/23 09:42 Pulse 98 08/01/23 09:42 Resp 16 08/01/23 09:42 BP 141/94 08/01/23 09:42 Pulse Ox 97 08/01/23 09:42 O2 Del Method Room Air 08/01/23 04:00 07/31/23 08/01/23 08/01/23 22:59 06:59 14:59 Intake Total 0.1 / 0.1 Output Total 650 / 650 Balance -649.9 / -649.9 Weight last 48 hrs Weight 181 lb 11.2 oz Weight 180 lb 8 oz Weight 171 lb Physical Exam Narrative: GENERAL: The patient is alert and oriented times three. Not in any acute distress. HEENT: No significant pallor, icterus or lymphadenopathy.Oral cavity: There are no mucous membrane lesions. NECK: Trachea appears to be central. No masses noted. No JVD or thyromegaly appreciated. RESPIRATORY: Chest is symmetrical. No intercostals muscle retraction or any accessory muscle activation. There is no chest wall tenderness. Breath sounds are heard bilaterally. No rales or rhonchi heard. No evidence of any consolidation. BREASTS: Deferred. HEART: The heart sounds are normal. No S3 or S4. Short systolic murmur in the lower sternal border. No diastolic murmurs.. No pericardial rub ABDOMEN: No vessel pulsations or distention. No tenderness. No organomegaly appreciated. Bowel sounds are normally heard. : Deferred. RECTAL: Deferred. LYMPHATIC: No lymphadenopathy noted in the neck. EXTREMITIES: No edema or cyanosis. No clubbing. MUSCULOSKELETAL: No acute joint deformities or swelling SKIN: There are no significant rashes or ecchymosis NEUROPSYCHIATRIC: The patient is alert and oriented x3. Appears to be in a good mood. No tremors or rigidity noted. Data 08/01/23 05:34 08/01/23 05:34 Other Labs: Laboratory Last Values WBC 8.38 10^3/uL (3.29-11.43) 08/01/23 05:34 RBC 3.68 10^6/uL (3.85-5.65) L 08/01/23 05:34 Hgb 11.80 g/dL (11.27-16.99) 08/01/23 05:34 Hct 35.7 % (37-53) L 08/01/23 05:34 MCV 97.0 fl (82-101) 08/01/23 05:34 MCH 32.1 pg (27-33) 08/01/23 05:34 MCHC 33.1 g/dL (30-55) 08/01/23 05:34 RDW 12.7 % (12.1-15.1) 08/01/23 05:34 Plt Count 219 10^3/cmm (157-399) 08/01/23 05:34 MPV 10.9 fL (7.4-10.4) H 08/01/23 05:34 Neut % (Auto) 77.2 % 08/01/23 05:34 Lymph % (Auto) 14.6 % 08/01/23 05:34 [place] % (Auto) 6.3 % 08/01/23 05:34 Eos % (Auto) 1.2 % 08/01/23 05:34 Baso % (Auto) 0.5 % 08/01/23 05:34 Neut # (Auto) 6.47 10^3/uL (1.8-7.7) 08/01/23 05:34 Lymph # (Auto) 1.2 10^3/uL (0.8-4.8) 08/01/23 05:34 [place] # (Auto) 0.5 10^3/uL (0.2-0.9) 08/01/23 05:34 Eos # (Auto) 0.1 10^3/uL (0.0-0.8) 08/01/23 05:34 Baso # (Auto) 0.0 10^3/uL (0.0-0.1) 08/01/23 05:34 Nucleated RBC % (auto) 0 % 08/01/23 05:34 Nucleated RBCs # 0.0 /100WBC 08/01/23 05:34 PT 14.10 SECONDS (12.1-14.9) 07/31/23 23:32 INR 1.06 (0.8-1.2) 07/31/23 23:32 APTT 31.9 SECONDS (23.9-36.7) 07/31/23 23:32 Sodium 138 mmol/L (136-145) 08/01/23 05:34 Potassium 5.0 mmol/L (3.5-5.1) 08/01/23 05:34 Chloride 104 mmol/L (98-107) 08/01/23 05:34 Carbon Dioxide 21 mmol/L (22-29) L 08/01/23 05:34 Anion Gap 18.0 (5-19) 08/01/23 05:34 BUN 30 mg/dL (6-20) H 08/01/23 05:34 Creatinine 1.6 mg/dL (0.7-1.2) H 08/01/23 05:34 GFR Calculation 45.1 mL/min (90-130) L 08/01/23 05:34 Glucose 89 mg/dL (65-115) 08/01/23 05:34 POC Glucose 164 mg/dL (70-110) H 08/01/23 10:16 Calculated Osmolality 292 mOsm/kg (285-295) 08/01/23 05:34 Calcium 8.8 mg/dL (8.5-10.5) 08/01/23 05:34 Phosphorus 4.5 mg/dL (2.5-4.5) 08/01/23 05:34 Magnesium 2.1 mg/dL (1.7-2.3) 08/01/23 05:34 Total Bilirubin 0.3 mg/dL (0.15-1.2) 07/31/23 23:32 AST 114 U/L (0-40) H 07/31/23 23:32 ALT 109 U/L (0-41) H 07/31/23 23:32 Alkaline Phosphatase 244 U/L (40-130) H 07/31/23 23:32 Ammonia 12 umol/L (16-60) L 07/31/23 23:32 Troponin T Baseline 557 ng/L (0-15) H* 07/31/23 23:32 Troponin T 120 Minute 504.6 ng/L (0-15) H 08/01/23 01:21 Delta Troponin T -52.4 ABS# (0-10) L 08/01/23 01:21 Troponin T Hi Sens 6Hr 446.8 ng/L (0-15) H 08/01/23 05:34 Troponin T Hi Sens 6Hr Delta -110.2 ng/L (0-12) L 08/01/23 05:34 C-Reactive Protein 3.2 mg/L (0.0-4.9) 08/01/23 05:34 NT-Pro-B Natriuret Pep 99681 pg/mL (0-125) H 07/31/23 23:32 Total Protein 6.9 g/dL (6.6-8.7) 07/31/23 23:32 Albumin 3.7 g/dL (3.5-5.2) 07/31/23 23:32 Globulin 3.2 g/dL (1.3-4.6) 07/31/23 23:32 Lipase 41 U/L (13-60) 07/31/23 23:32 Urine Color Light yellow (Yellow) 08/01/23 02:13 Urine Appearance Clear (CLEAR) 08/01/23 02:13 Urine pH 5 (5-7) 08/01/23 02:13 Ur Specific [place] 1.015 (1.005-1.030) 08/01/23 02:13 Urine Protein 1+ (Negative) H 08/01/23 02:13 Urine Glucose (UA) 4+ (Normal) H 08/01/23 02:13 Urine Ketones Negative (Negative) 08/01/23 02:13 Urine Blood Neg (Negative) 08/01/23 02:13 Urine Nitrate Negative (Negative) 08/01/23 02:13 Urine Bilirubin Neg (Negative) 08/01/23 02:13 Urine Urobilinogen Neg mg/dL (Negative) 08/01/23 02:13 Ur Leukocyte Esterase Negative (Negative) 08/01/23 02:13 Urine RBC 0-4 /hpf (0-2) H 08/01/23 02:13 Urine WBC None /hpf (0-5) 08/01/23 02:13 Ur Squamous Epith Cells None /hpf (0-5) 08/01/23 02:13 Amorphous Sediment Not Reportable 08/01/23 02:13 Urine Bacteria Trace /hpf (NONE) 08/01/23 02:13 Urine Mucus Trace /hpf 08/01/23 02:13 Other data: The EKG from 07/30/2023 revealed sinus rhythm with a poor R wave progression. Possible old septal MT. Diffuse nonspecific T wave changes. Possible left atrial lodgment. Myocardial perfusion imaging from today 1. Myocardial perfusion imaging revealing large area of persistent decreased tracer uptake anterior, anteroseptal, anterolateral, inferior, inferolateral and apical regions with a very small areas of reversibility in the anteroseptal, apical and inferior regions suggesting extensive myocardial scarring in the distribution of all the 3 coronary arteries with small areas of michell-infarction ischemia involving the left anterior descending and right coronary arteries. 2. Diminished LV ejection fraction 29%. 3. LV wall motion abnormalities as mentioned above. 4. Moderately dilated LV cavity with an end-systolic volume of 134 mL. No similar previous studies are available for comparison Echocardiogram on 07/26/2023 LV systolic function is severely reduced with EF of 20 to 25%. Grade 3 diastolic dysfunction RV is moderately hypokinetic Mild mitral regurgitation Mild aortic regurgitation Mild tricuspid regurgitation Moderate pulmonary hypertension Trace pulmonic regurgitation Trace pericardial effusion Compared to prior echocardiogram from 2021, LV systolic function appears to have worsened further A&P Assessment and plan (1) Elevated troponin: Most likely this patient had a recent myocardial event-history of myocardial infarction. The insulin level is trending down. Multiple small areas of ischemia based on the perfusion scan. (2) Acute on chronic systolic heart failure: The worsening LV systolic function and the recent myocardial event might have contributed to the heart failure. Currently seems to be getting compensated. (3) Atherosclerosis of coronary artery of [place] heart without angina pectoris: Patient had multiple PCI's. Possibility of stent occlusion versus progression of disease in the other vessels are considerations. A repeat cardiac realization would be appropriate to evaluate the coronary status and decide on further management. Qualifiers: Coronary Disease-Associated Artery/Lesion type: [place] artery Qualified Code(s): I25.10 - Atherosclerotic heart disease of [place] coronary artery without angina pectoris (4) Dyslipidemia: May continue on the current medications. (5) Hypertension: Currently normotensive. May continue on the current medications. Qualifiers: Hypertension type: primary hypertension Qualified Code(s): I10 - Essential (primary) hypertension (6) Diabetes mellitus: Management as per the primary. 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 Qualifiers: Chronic kidney disease stage: stage 3 (moderate) Chronic kidney disease stage 3 subtype: stage 3a (GFR 45-59) Qualified Code(s): N18.31 - Chronic kidney disease, stage 3a (8) History of CVA (cerebrovascular accident) without residual deficits: Patient has not had a recurrence of CVA. Plan Doses of Myocardial perfusion imaging were discussed with the patient and his in detail. In view of the worsening LV systolic function, decompensated heart failure and the abnormal perfusion scan, in order to further evaluate his coronary status, a repeat cardiac catheterization would be appropriate. This was discussed in detail with the patient and family. In view of his chronic kidney disease, he carries a higher risk for contrast-induced nephropathy as well. Dr. Bellamy, patient's director business development be assuming his care in the morning. Dr. Bellamy will make the final decision on the angiogram. Patient may continue on the current medication for the time being Based on the results of the above tests and the patient's clinical progress, further recommendations will be made. Thank you for the opportunity to evaluate this patient and make these recommendations Consult Attestations Medical Necessity Statement: Disposition as per the primary Coding Level of Care Code 01576 Diagnoses Elevated troponin R79.89 Acute on chronic systolic heart failure I50.23 Atherosclerosis of [place] coronary artery of [place] heart without angina pectoris I25.10 Coronary Disease-Associated Artery/Lesion type: [place] artery Dyslipidemia E78.5 Primary hypertension I10 Hypertension type: primary hypertension Drug or chemical induced diabetes mellitus without complication, without long-term current use of insulin E09.9 Diabetes mellitus type: drug or chemical induced Diabetes mellitus senior living insulin use: without senior living use Diabetes mellitus complication status: without complication Stage 3a chronic kidney disease N18.31 Chronic kidney disease stage: stage 3 (moderate) Chronic kidney disease stage 3 subtype: stage 3a (GFR 45-59) History of CVA (cerebrovascular accident) without residual deficits Z86.73
--- NOTE | 2023-08-01 16:17 | PM.PN ---
Subjective Subjective: He reports he is doing well. Denies chest pain or pressure. Denies trouble breathing. Lower extremity edema improving. Underwent stress testing, awaiting results, denies chest pain during stress test. Vitals/I&O/Wt Last Vital Signs Temp 97.9 F 08/01/23 09:42 Pulse 82 08/01/23 13:20 Resp 16 08/01/23 13:20 BP 130/89 08/01/23 12:10 Pulse Ox 97 08/01/23 13:20 O2 Del Method Room Air 08/01/23 13:20 08/01/23 08/01/23 08/01/23 06:59 14:59 22:59 Intake Total 0.1 / 0.1 210.864 / 210.864 Output Total 650 / 650 700 / 700 400 / 1100 Balance -649.9 / -649.9 -489.136 / -489.136 -400 / -889.136 Weight last 48 hrs Weight 82.418 kg Weight 81.873 kg Weight 77.564 kg Physical Exam Narrative: Accompanied by family. Const: COMMON NORMALS: patient oriented x3 and alert GENERAL APPEARANCE: cooperative ORIENTATION/CONSCIOUSNESS: Yes awake HENMT: COMMON NORMALS: oropharynx normal Neck/C-Spine: COMMON NORMALS: no JVD Resp: COMMON NORMALS: normal respiratory effort and clear to auscultation bilaterally AUSCULTATION: clear to auscultation bilaterally Cardio: COMMON NORMALS: no JVD, regular rhythm, S1 normal heart sound present, S2 normal heart sound present and No murmurs present (Cardio) RHYTHM: regular rhythm HEART SOUNDS: S1 normal heart sound present and S2 normal heart sound present GI: COMMON NORMALS: Normal to inspection, nondistended, normoactive bowel sounds present, Soft to palpation and non-tender PALPATION: Yes Soft to palpation Extremity: COMMON NORMALS: no joint enlargement GENERAL: Yes edema (2+ BLLE edema.) Neuro: COMMON NORMALS: patient oriented x3 and moves all extremities SENSORIUM/ORIENTATION: Yes alert Skin: COMMON NORMALS: no rashes or lesions noted GENERAL SKIN EXAM: no rashes or lesions noted Data 08/01/23 05:34 08/01/23 05:34 A&P Assessment and plan (1) Hypertension: Qualifiers: Hypertension type: primary hypertension Qualified Code(s): I10 - Essential (primary) hypertension (2) Ischemic cardiomyopathy: (3) Congestive heart failure: Qualifiers: Heart failure chronicity: chronic Heart failure type: systolic Qualified Code(s): I50.22 - Chronic systolic (congestive) heart failure (4) CAD (coronary artery disease): Qualifiers: Associated angina: without angina Coronary Disease-Associated Artery/Lesion type: [place] artery [place] vs. transplanted heart: [place] heart Qualified Code(s): I25.10 - Atherosclerotic heart disease of [place] coronary artery without angina pectoris (5) Diabetes mellitus: (6) Acute renal failure: Qualifiers: Acute renal failure type: unspecified Qualified Code(s): N17.9 - Acute kidney failure, unspecified (7) Acute hyperkalemia: Plan NSTEMI: Stress test today. Pending echocardiogram. Has been evaluated by cardiology. Consideration of further assessment based on cardiology assessment regarding stress test, discussion with patient. Discussed with cardiology. Reviewed cardiology note. Reviewed vitals, CBC, INR, CMP, troponin series, NT proBNP, lipase, UA, EKG. continue aspirin, statin, beta-job, heparin drip. With anticoagulation risk of bleeding, monitor PTTs, blood counts, monitor for any bleeding. Monitor on telemetry due to risk of arrhythmia. Acute systolic CHF exacerbation: Improving lower extremity edema, continue IV diuretic, at risk of electrolyte abnormality, follow-up chemistry. Reviewed potassium, normal 5, magnesium, 2.1. Monitor telemetry. Monitor RONNY. Fluid restriction 1400 mL/day. Ischemic cardiomyopathy Patient was drinking almost 2 L for last 7 days He took first dose of Lasix today which was 40 mg from 6 PM Target for negative fluid balance up to 2.5 to 3 L in neck 72 hours Needs optimization of goal-directed medical therapy Follows up with Dr. Reilly outpatient Congestive hepatopathy: Continue treatment of CHF. Reassess liver parameters. De Souza sign negative Liver ultrasound unremarkable Hepatitis panel negative No active signs of jaundice Bilirubin is normal Acute on chronic kidney disease: Reviewed BUN, creatinine, potassium, bicarb, phosphorus, magnesium, noted improving renal function. Continue treatment of CHF. Monitor blood pressure. I do suspect cardiorenal syndrome at this point Anticipate improvement with diuresis patient does not want Drake catheter placement work urine output He is agreeable for use of urinal at this point Hyperkalemia Will give calcium gluconate, Kayexalate, insulin 10 units along dextrose Recheck BMP Hypertension Patient only takes metoprolol which needs to be readjusted patient consistently is around 140/90 m mercury Not a good candidate for lisinopril because of chronic kidney disease, I would avoid amlodipine because of lower extremity edema He may benefit from isosorbide dinitrate considering low EF Not a good candidate to be on Entresto or spironolactone Significant ischemic cardiomyopathy: Consideration of LifeVest and AICD His EF has not improved despite PCI Will need cardiac consultation in the morning Cardiac diet possible restriction Consistent carb diet Full code DVT prophylaxis: Heparin History of stroke: Only takes aspirin along atorvastatin Does not take Plavix Attestations Medical Necessity Statement*: Continue admission for assessment management of NSTEMI, systolic CHF exacerbation with congestive hepatopathy, ANTHONY Diagnoses Primary hypertension I10 Hypertension type: primary hypertension Ischemic cardiomyopathy I25.5 Chronic systolic congestive heart failure I50.22 Heart failure chronicity: chronic Heart failure type: systolic Coronary artery disease involving [place] coronary artery of [place] heart without angina pectoris I25.10 Associated angina: without angina Coronary Disease-Associated Artery/Lesion type: [place] artery [place] vs. transplanted heart: [place] heart Diabetes mellitus E11.9 Acute renal failure N17.9 Acute renal failure type: unspecified Acute hyperkalemia E87.5
--- NOTE | 2023-08-01 16:57 | PC.NURSE ---
blood sugar via [employer] com...result 200.pt agreed to take sliding scale insulin.he refused lunch sliding sale
[2023-08-01] MEDS: insulin lispro 100 unit/1 mL SUBCUT (17:20)
[2023-08-01 19:42] LABS: Partial Thromboplastin Time 70.3 SECONDS (23.9-36.7)
[2023-08-01 22:22] LABS: Glucose Point of Care 117 mg/dL (70-110)
[2023-08-02] VITALS (33 sets, daily range): BP systolic 114–151; BP diastolic 72–101; PULSE 79–101; RESP 4–26; TEMP 36.5; O2SAT 91–100; BMI 26.9
[2023-08-02] MEDS: FUROsemide 10 mg/mL SDV 4mL 40 MG IVP ×2 (00:19→12:35)
[2023-08-02] MEDS: heparin drip 25,000 UNIT/500 ML PREMIX 20 UNIT IV (00:42)
[2023-08-02 02:31] LABS: Basophils # 0.1 10^3/uL (0.0-0.1); Basophils % 0.8 %; Eosinophils # 0.3 10^3/uL (0.0-0.8); Eosinophils % 5.4 %; Hematocrit 36.6 % (37-53); Lymphocytes # 1.9 10^3/uL (0.8-4.8); Lymphocytes % 30.7 %; Mean Corpuscular HGB Conc 33.3 g/dL (30-55); Mean Corpuscular Hemoglobin 31.9 pg (27-33); Mean Corpuscular Volume 95.8 fl (82-101); Mean Platelet Volume 10.5 fL (7.4-10.4); Monocytes # 0.4 10^3/uL (0.2-0.9); Monocytes % 6.1 %; Neutrophils # 3.56 10^3/uL (1.8-7.7); Neutrophils % 56.8 %; Nucleated Red Blood Cells % 0 %; Platelet Count 202 10^3/cmm (157-399); Red Blood Count 3.82 10^6/uL (3.85-5.65); Red Cell Distribution Width 12.6 % (12.1-15.1); White Blood Count 6.26 10^3/uL (3.29-11.43)
[2023-08-02 02:47] LABS: Alanine Aminotransferase 65 U/L (0-41); Albumin Level 3.1 g/dL (3.5-5.2); Alkaline Phosphatase 180 U/L (40-130); Aspartate Amino Transferase 32 U/L (0-40); Blood Urea Nitrogen 28 mg/dL (6-20); Calcium 8.5 mg/dL (8.5-10.5); Carbon Dioxide 25 mmol/L (22-29); Chloride 103 mmol/L (98-107); Creatinine Clr Calc Pharmacy 53.5878; Globulin 2.6 g/dL (1.3-4.6); Glomerular Filtration Rate 45.1 mL/min (90-130); Glucose 107 mg/dL (65-115); Osmolality Calculated 294 mOsm/kg (285-295); Sodium 139 mmol/L (136-145); Total Bilirubin 0.4 mg/dL (0.15-1.2); Total Protein 5.7 g/dL (6.6-8.7)
[2023-08-02 02:52] LABS: Partial Thromboplastin Time 81.9 SECONDS (23.9-36.7)
[2023-08-02 06:46] LABS: Glucose Point of Care 117 mg/dL (70-110)
--- NOTE | 2023-08-02 07:21 | XACV_ITS ---
Exam Room: [facility] Ht: 170 cm Wt: 78 kg BSA: 1.94 m2 Gender: Male : 1965 Any Known Allergies: Morphine Exam Priority: Routine Procedure(s): Procedure Description: Diagnostic procedure Procedure Description: PCI procedure Procedure Description: Drug Eluting Coronary Stent Procedure Description: PTCA Procedure Description: Miscellaneous Procedure Description: Angio-Seal Procedure Description: ACT Procedure Description: Coronary Angiography Diagnostic Cath Status: Urgent Diagnostic Findings * INDICATION: NSTEMI/ LV dysfunction. * Left Main has no significant disease. * Circumflex has mild luminal irregularities. Prior stent patent. * Proximal Left Anterior Descending: significant 80% in-stent restenosis is seen. This is a long stent that extended into the diagonal artery. At bifurcation of the diagonal and LAD, LAD is subtotally occluded and has very limited thready flow.. * Distal Right Coronary Artery: severe 70-80% stenosis, ESTHER: 3 flow. * Coronary angiography shows right dominance. PCI Status: Urgent PCI Indication: NSTE - ACS Interventional Findings * PROCEDURE DETAIL: We engaged left main artery with XB 3.5 guide catheter. IV heparin was administered to maintain anticoagulation. 0.014 run-through guidewire was used to cross into the LAD. We dilated in-stent restenosis with a 3.0 x 15 mm noncompliant balloon at high pressure. At this time final angiogram was performed that showed excellent stent expansion, no residual stenosis and ESTHER-3 flow. Guidewire and guide catheter were removed. We then turned our attention to RCA. We engaged RCA with JR4 guide catheter. Run-through wire was used to cross the stenosis. We predilated the stenosis with 3.0 x 15 mm NC balloon. We then placed 3.0 x 26 mm resolute [place] drug-eluting stent. We then postdilated stent with 3.0 x 15 mm NC balloon. At this time final angiogram was performed that showed excellent stent expansion, no residual stenosis and ESTHER-3 flow. Guidewire and guide catheter were removed. Patient left the Supervisor Mixing in stable condition.. * Proximal Left Anterior Descendin% stenosis treated with a MDT NC EUPHORA RX [id number] BALLOON. 0% residual stenosis, ESTHER: 3 flow. * Distal Right Coronary Artery: 70% stenosis treated with a MDT NC EUPHORA RX [id number] BALLOON, and MDT R MARTIN 3.0X26 SANTO. 0% residual stenosis, ESTHER: 3 flow. Conclusions 1. Severe in-stent restenosis of proximal LAD is stent. Status post successful revascularization with balloon angioplasty. Severe distal RCA stenosis s/p successful revascularization with 1 stent. 2. Proximal Left Anterior Descending was treated with a Balloon. 3. Distal Right Coronary Artery was treated with a Balloon, and Drug Eluting Stent. Recommendations * Dual antiplatelet therapy with aspirin and brilinta. * Guideline directed heart failure therapy. * Outpatient cardiology follow up in 4 weeks. Interventional RX Recommendation: PCI w/o planned CABG Diagnostic RX Recommendation: PCI w/o planned CABG Anticoagulation: Heparin Pressures Phase:Rest AO : 132 / 81 ( 104 ) @ 10:18:00 AM 109 / 82 ( 96 ) @ 10:21:00 AM 118 / 89 ( 105 ) @ 10:22:00 AM 112 / 85 ( 100 ) @ 10:24:00 AM 118 / 76 ( 96 ) @ 10:31:00 AM 94 / 73 ( 84 ) @ 10:36:00 AM 132 / 88 ( 109 ) @ 10:41:00 AM 111 / 88 ( 100 ) @ 10:53:00 AM Clinical Evaluation EBL: 5mL-10mL Procedural Details Procedure Consent Obtained. Current Diagnosis : NSTEMI. Pre-Procedure Time Out. Identified patient by full name and date of as verbalized by the patient/guarantor. Does the consent match the physician's order: Yes. Inpatient/Outpatient History & Physical on Chart: Yes. Accurate & Complete Informed Consent: Yes. If H&P is completed, is and addenduem needed: No; If yes, is the addendum complete: N/A. Visualize and Verify Site with Patient/Guarantor: N/A. Relevant Radiology Images available: Yes. Pre-op teaching completed and patient verbalized understanding. The risks, benefits, and alternatives of sedation and/or procedure were discussed by physician. The patient agrees to continue. Procedure started. [facility] Clinical Fraility Score: 3: Managing Well. Supervisor Mixing Indications: ACS > 24 hours. Chest Pain Symptom Assessment: Atypical Angina. Correct patient, site and procedure confirmed by cath team. Current diagnosis: NSTEMI. PERRLA. Strong, equal hand director of business continuity bilaterally. Lungs clear x 5 lobes. IV Site on Arrival: 20 gauge in the left anticubital. IV Fluids: 0.9% NaCl at KVO. 0 mL infused prior to labview programmer. Oxygen started at 2liters/min via nasal canula. bilateral groins was prepped with chloroprep then draped in the usual sterile fashion. Baseline sample Acquired. HR: 99 BPM. Physician arrived. Pre Procedural Pulses: bilateral dorsalis pedis was 1+. Pre Procedural Pulses: bilateral radial was 1+. Physician scrubbed in. Immediate Pre-Procedure Time Out. Correct Patient: Yes; Correct Procedure: Yes; Correct Site: Yes; Correct Patient Position: Yes; Correct Supplies: Yes; Dried Flammable Prep: Yes; Blood Products Available: N/A;. Lidocaine 1% infiltrated to the right groin. Arterial access obtained with micropuncture set. A 5 maldivian JL4 catheter in over wire. Multiple views taken of left coronary artery. Catheter removed over the standard wire. A 5 maldivian JR4 catheter in over wire. Multiple views taken of right coronary artery. Physician review of cine films. Catheter removed over the standard wire. ACT drawn. Results 169 seconds. Therapeutic limits - pre-heparin administration 90-150 seconds and monitoring heparin during a vascular procedure >250 seconds. 6 maldivian XB 3.5 guide catheter was inserted over the wire. Runthrough guidewire was advanced through the guide catheter to lesion in the prox LAD. Inflation number : 1 A MDT NC EUPHORA RX [id number] BALLOON was prepped and advanced across the Prox LAD , then inflated to 16 RICARDO for 0:30 seconds. Inflation number: 2 The MDT NC EUPHORA RX [id number] BALLOON was reinflated across the Prox LAD, to 18 RICARDO for 0:22 seconds. Inflation number: 3 The MDT NC EUPHORA RX [id number] BALLOON was reinflated across the Prox LAD, to 16 RICARDO for 0:10 seconds. Balloon out. Results checked. Wire out. Guide catheter out. 6 maldivian JR 4 guide catheter was inserted over the wire. ACT drawn. Results 232 seconds. Therapeutic limits - pre-heparin administration 90-150 seconds and monitoring heparin during a vascular procedure >250 seconds. Runthrough guidewire was advanced through the guide catheter to lesion in the distal RCA. Inflation number: 1 The MDT NC EUPHORA RX [id number] BALLOON was reinflated across the Dist RCA, to 12 RICARDO for 0:10 seconds. Inflation number: 2 The MDT NC EUPHORA RX [id number] BALLOON was reinflated across the Dist RCA, to 12 RICARDO for 0:10 seconds. Balloon out. Results checked. Inflation Number : 3 A MDT R MARTIN 3.0X26 SANTO -Lot Number# _[id number] EXP: 12/29/2025 was prepped and advanced across the Dist RCA. The stent was deployed at 12 RICARDO for 0:21 seconds. Stent balloon out over wire. Results checked. Inflation number: 4 The MDT NC EUPHORA RX [id number] BALLOON was reinflated across the Dist RCA, to 14 RICARDO for 0:15 seconds. Balloon out. Results checked. Wire out. ACT drawn. Results 279 seconds. Therapeutic limits - pre-heparin administration 90-150 seconds and monitoring heparin during a vascular procedure >250 seconds. Guide catheter out. A Right femoral angiogram was performed to determine safe placement of closure device. Lidocaine 1% infiltrated to the right groin. A Angio-Seal VIP ([place]) was successful obtaining hemostatsis at the Right Femoral artery insertion site. Post Procedure: Pulses reassessed and unchanged. PERRLA. Strong, equal hand director of business continuity bilaterally. No VTE prophylaxis required. Vital chart was stopped. Medication's Wasted: Other = Fentanyl 75mcg Versed 1 mg. Medication's Wasted: Heparin = 3000 units. Medication's Wasted: Lidocaine 1% = 5 mL. Total IV fluids: 70 mL. Complications: None. Estimated blood loss: 5mL-10mL. Responsiveness - Normal response to verbal stimuli; alert and oriented, PERRLA. Airway - Unaffected, no intervention required; spontaneous ventilation. Circulation: W/N/L, pulses unchanged. Nausea/Vomiting: No. Procedure completed. Patient transferred by bed to CPRU. Access Site Site: Right Femoral artery Sheath Size: 6 Fr Hemostasis Method: Angio-Seal VIP ([place]) Hemostasis Success: Successful Procedure Medications Start: 9:11 AM Stop: 9:11 AM Medication: Versed Amount: 1 mg Route: I.V. Start: 9:11 AM Stop: 9:11 AM Medication: Benadryl Amount: 25 mg Route: I.V. Start: 9:15 AM Stop: 9:15 AM Medication: Fentanyl Amount: 25 mcg Route: I.V. Start: 9:30 AM Stop: 9:30 AM Medication: Heparin Amount: 3000 units Route: I.V. Start: 9:33 AM Stop: 9:33 AM Medication: Heparin Amount: 3000 units Route: I.V. Start: 9:43 AM Stop: 9:43 AM Medication: Heparin Amount: 2000 units Route: I.V. Start: 9:58 AM Stop: 9:58 AM Medication: Brilinta Amount: 180 mg Route: P.O. I, the attending physician, have reviewed and verified all procedure medications. Yes, all medications given per verbal order History/Risk Factors Hypertension: No Dyslipidemia: Yes Peripheral Arterial Disease (PAD): No Myocardial Infarction (MO): Yes Obesity: No Renal Disease: No Tobacco Use: Never Prior Interventions PCI: Yes CABG: No Valve Surgery: No Date of PCI: 02/04/2018 Report Signatures Finalized by Mainor Bellamy MD on 08/06/2023 09:00 AM
--- NOTE | 2023-08-02 08:14 | P.PN_ITS ---
Subjective 2 Subjective: Patient had coronary angiogram today that showed severe ISR of proximal LAD stent. He underwent successful revascularization with balloon angioplasty. Also had severe stenosis of distal RCA and underwent successful revascularization with 1 stent. No chest pain. Vitals/I&O/Wt Last Vital Signs Temp 97.7 F 08/02/23 05:46 Pulse 79 08/02/23 07:27 Resp 17 08/02/23 07:27 BP 131/95 08/02/23 05:46 Pulse Ox 97 08/02/23 07:27 O2 Del Method Room Air 08/02/23 07:27 08/01/23 08/02/23 08/02/23 22:59 06:59 14:59 Intake Total 300.666 / 511.530 Output Total 2100 / 2800 1025 / 3825 Balance -2100 / -2589.136 -724.334 / -3313.470 Weight last 48 hrs Weight 172 lb 3.2 oz Weight 181 lb 11.2 oz Weight 180 lb 8 oz Weight 171 lb Physical Exam 2 Narrative: GENERAL: Patient is alert, awake and oriented x3. [] NECK: No jugular vein distension. [] HEENT: No cyanosis. No icterus. No pallor. [] HEART: Regular S1 and S2. No murmur, rub or gallop. [] LUNGS: Clear to auscultate bilaterally. [] ABDOMEN: Soft, nontender and nondistended. EXTREMITIES: No edema Data 08/03/23 03:54 08/03/23 03:54 A&P Assessment and plan (1) Elevated troponin: (2) Acute on chronic systolic heart failure: (3) Atherosclerosis of coronary artery of [place] heart without angina pectoris: Qualifiers: Coronary Disease-Associated Artery/Lesion type: [place] artery Qualified Code(s): I25.10 - Atherosclerotic heart disease of [place] coronary artery without angina pectoris (4) Dyslipidemia: (5) Hypertension: Qualifiers: Hypertension type: primary hypertension Qualified Code(s): I10 - Essential (primary) hypertension (6) Diabetes mellitus: Qualifiers: Diabetes mellitus complication status: without complication Diabetes mellitus correction insulin use: without correction use Diabetes mellitus type: d rug or chemical induced Qualified Code(s): 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 Also has severe distal RCA stenosis. Underwent successful revascularization. He likely had a recent WA with significantly elevated troponins. Will continue with aspirin. Restarted on Brilinta. Prior hemorrhage was hemorrhagic conversion of recent ischemic stroke. LV systolic function is severely reduced we will order LifeVest. Will optimize medical therapy. Uptitrate metoprolol to 25 mg twice daily. He has CKD. Will monitor for contrast-induced nephropathy. Holding Lasix for today. Thank you for involving us with care of this patient. We will continue to follow.Please call with questions. Attestations 2 Medical Necessity Statement*: Care expected to cross 2 midnights. 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
--- NOTE | 2023-08-02 08:55 | W.PM.OPSUD ---
Surgery/Procedure H&P Update DATE OF PROCEDURE: August 02, 2023 DATE H&P PERFORMED: 08/01/23 H&P UPDATE INFORMATION: I have reviewed H&P completed within last 30 days, I have examined patient prior to procedure and No changes to prior documentation PREOP DIAGNOSIS: Troponin elevation/LV dysfunction PRIMARY INDICATION FOR PROCEDURE: Troponin elevation/LV dysfunction PLANNED PROCEDURE: Left heart cath with possible percutaneous coronary intervention PATIENT REASSESSED PRIOR TO SEDATION, WITH NO CHANGE NOTED: Yes PHYSICAL EXAM: alert, oriented x 3, clear to auscultation bilaterally and regular rate & rhythm AIRWAY EVAL/ANESTHESIA PLAN: normal airway, ASA III, Local Anesthesia, Risks, benefits & alternatives of sedation and/or procedure discussed and Patient agrees to continue as planned ADDITIONAL INFORMATION: Moderate sedation
--- NOTE | 2023-08-02 10:10 | PC.NURSE ---
Recovery Note Pt arrived post PCI procedure to CPRU room 3. Pt alert and oriented. Denies pain. Placed on bedside radiation monitor. Right groin has dressing in place , is asymptomatic. Clean, dry, and intact. Pedal pulses present. Pt family updated. Pt instructed on bedrest and activity restrictions, verbalized understanding. Call in reach. Report given to MAKEDA Calderon by Nate Aguirre RN.
--- NOTE | 2023-08-02 10:56 | PC.NURSE ---
received from cardiac central lab technician at 1055 via bed.report received.pt is drowsy but easily awakened.denies pain at present.sr on monitor.right groin was closed with angioseal in central lab technician. right groin with drsg dry and intact.no hematoma noted.right leg is warm to touch and with brisk capillary refill.palpable dp pulse noted.pt and spouse instructed in activity restrictions s/p femoral artery procedure and instructed to notify staff for any bleeding,pain,numbness,sob,or for any concerns at all.pt and spouse verb understanding of instructions
[2023-08-02] MEDS: atorvastatin 40 mg Tablet PO (12:31)
[2023-08-02] MEDS: aspirin 81 mg EC Tablet PO (12:31)
[2023-08-02] MEDS: metoprolol tartrate 25 mg Tablet 12.5 MG PO ×2 (12:31→17:22)
--- NOTE | 2023-08-02 12:55 | PC.NURSE ---
dex-com 119.no insulin per siding scale
[2023-08-02] MEDS: insulin lispro 100 unit/1 mL SUBCUT (17:22)
--- NOTE | 2023-08-02 17:22 | PC.NURSE ---
dex-com blood sugar reading is 181.6 units s/s humalog insulin given as ordered
[2023-08-02] MEDS: ticagrelor 90 mg Tablet PO (21:25)
--- NOTE | 2023-08-02 21:45 | P.PN_ITS ---
Subjective 2 Subjective: He is not feeling well overall, but denies chest pain or pressure. No shortness of breath. No issues with access site. Vitals/I&O/Wt Last Vital Signs Temp 97.7 F 08/02/23 05:46 Pulse 91 08/02/23 16:30 Resp 19 H 08/02/23 16:30 BP 127/88 08/02/23 17:00 Pulse Ox 97 08/02/23 16:30 O2 Del Method Room Air 08/02/23 10:41 08/02/23 08/02/23 08/02/23 06:59 14:59 22:59 Intake Total 300.666 / 511.530 447.667 / 447.667 360 / 807.667 Output Total 1025 / 3825 1075 / 1075 Balance -724.334 / -3313.470 -627.333 / -627.333 360 / -267.333 Weight last 48 hrs Weight 78.109 kg Weight 82.418 kg Weight 81.873 kg Weight 77.564 kg Physical Exam 2 Const: COMMON NORMALS: patient oriented x3 and alert GENERAL APPEARANCE: c ooperative ORIENTATION/CONSCIOUSNESS: Yes awake HENMT: COMMON NORMALS: oropharynx normal Neck/C-Spine: COMMON NORMALS: no JVD Resp: COMMON NORMALS: normal respiratory effort and clear to auscultation bilaterally AUSCULTATION: clear to auscultation bilaterally Cardio: COMMON NORMALS: no JVD, regular rhythm, S1 normal heart sound present, S2 normal heart sound present and No murmurs present (Cardio) RHYTHM: regular rhythm HEART SOUNDS: S1 normal heart sound present and S2 normal heart sound present GI: COMMON NORMALS: Normal to inspection, nondistended, normoactive bowel sounds present, Soft to palpation and non-tender PALPATION: Yes Soft to palpation Extremity: COMMON NORMALS: no joint enlargement GENERAL: Yes edema (2+ BLLE edema.) OTHER: Right groin access site without bleeding or swelling, no pulsatile mass. Neuro: COMMON NORMALS: patient oriented x3 and moves all extremities S ENSORIUM/ORIENTATION: Yes alert Skin: COMMON NORMALS: no rashes or lesions noted GENERAL SKIN EXAM: no rashes or lesions noted Data 08/02/23 02:24 08/02/23 02:24 A&P Assessment and plan (1) Hypertension: Qualifiers: Hypertension type: primary hypertension Qualified Code(s): I10 - Essential (primary) hypertension (2) Ischemic cardiomyopathy: (3) Congestive heart failure: Qualifiers: Heart failure chronicity: chronic Heart failure type: systolic Qualified Code(s): I50.22 - Chronic systolic (congestive) heart failure (4) CAD (coronary artery disease): Qualifiers: Associated angina: without angina Coronary Disease-Associated Artery/Lesion type: [place] artery [place] vs. 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 Discussed with public improvement inspector. And Brilinta has been added. Reviewed vitals, CBC, PTT, CMP. Follow-up kidney function with risk of kidney injury. Receiving gentle hydration, monitor for fluid overload given underlying congestive heart failure. Monitor on telemetry with risk of reperfusion arrhythmia. Discussed with residential case manager. Acute systolic CHF exacerbation: Diuretics were held, receiving IV fluid gentle hydration by cardiology following coronary angiogram in the setting of insufficiency. Reassess volume status, at risk of fluid overload. Reassess renal function. Monitor telemetry. Monitor RONNY. Fluid restriction 1400 mL/day. Ischemic cardiomyopathy. Status post intervention as above. Cardiology requesting LifeVest. Patient was drinking almost 2 L for last 7 days Congestive hepatopathy: Reviewed CMP, improving.Continue treatment of CHF. Reassess liver parameters. De Souza sign negative Liver ultrasound unremarkable Hepatitis panel negative No active signs of jaundice Bilirubin is normal Acute on chronic kidney disease: Reviewed BUN, creatinine, potassium, bicarb, phosphorus, magnesium, noted improving renal function. Continue treatment of CHF. Monitor blood pressure. I do suspect cardiorenal syndrome at this point Anticipate improvement with diuresis patient does not want Drake catheter placement work urine output He is agreeable for use of urinal at this point Hyperkalemia Will give calcium gluconate, Kayexalate, insulin 10 units along dextrose Recheck BMP Hypertension Patient only takes metoprolol which needs to be readjusted patient consistently is around 140/90 m mercury Not a good candidate for lisinopril because of chronic kidney disease, I would avoid amlodipine because of lower extremity edema He may benefit from isosorbide dinitrate considering low EF Not a good candidate to be on Entresto or spironolactone Significant ischemic cardiomyopathy: LifeVest His EF has not improved despite PCI Cardiac diet possible restriction Consistent carb diet Full code DVT prophylaxis: Heparin History of stroke: Only takes aspirin along atorvastatin Does not take Plavix Attestations 2 Medical Necessity Statement*: Continue admission for assessment management of NSTEMI, systolic CHF exacerbation with congestive hepatopathy, ANTHONY Diagnoses Primary hypertension I10 Hypertension type: primary hypertension Ischemic cardiomyopathy I25.5 Chronic systolic congestive heart failure I50.22 Heart failure chronicity: chronic Heart failure type: systolic Coronary artery disease involving [place] coronary artery of [place] heart without angina pectoris I25.10 Associated angina: without angina Coronary Disease-Associated Artery/Lesion type: [place] artery [place] vs. 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
[2023-08-03] VITALS: BP 122/76; PULSE 79; RESP 17; TEMP 36.8; O2SAT 93
[2023-08-03 04:00] VITALS: BP 136/91; PULSE 92; RESP 16; TEMP 37.2; O2SAT 98
[2023-08-03 04:13] LABS: Basophils % 0.4 %; Eosinophils # 0.4 10^3/uL (0.0-0.8); Eosinophils % 5.9 %; Hematocrit 37.7 % (37-53); Lymphocytes # 1.5 10^3/uL (0.8-4.8); Lymphocytes % 21.4 %; Mean Corpuscular HGB Conc 32.9 g/dL (30-55); Mean Corpuscular Hemoglobin 31.6 pg (27-33); Mean Corpuscular Volume 96.2 fl (82-101); Mean Platelet Volume 10.5 fL (7.4-10.4); Monocytes # 0.5 10^3/uL (0.2-0.9); Monocytes % 7.5 %; Neutrophils # 4.37 10^3/uL (1.8-7.7); Neutrophils % 64.5 %; Nucleated Red Blood Cells % 0 %; Platelet Count 219 10^3/cmm (157-399); Red Blood Count 3.92 10^6/uL (3.85-5.65); Red Cell Distribution Width 12.8 % (12.1-15.1); White Blood Count 6.78 10^3/uL (3.29-11.43)
[2023-08-03 04:41] LABS: Alanine Aminotransferase 46 U/L (0-41); Alkaline Phosphatase 169 U/L (40-130); Anion Gap 14.3 (5-19); Aspartate Amino Transferase 19 U/L (0-40); Blood Urea Nitrogen 25 mg/dL (6-20); Calcium 8.7 mg/dL (8.5-10.5); Carbon Dioxide 28 mmol/L (22-29); Chloride 101 mmol/L (98-107); Creatinine Clr Calc Pharmacy 49.2386; Globulin 2.5 g/dL (1.3-4.6); Glomerular Filtration Rate 42.1 mL/min (90-130); Glucose 131 mg/dL (65-115); Osmolality Calculated 294 mOsm/kg (285-295); Potassium 4.3 mmol/L (3.5-5.1); Sodium 139 mmol/L (136-145); Total Bilirubin 0.5 mg/dL (0.15-1.2); Total Protein 5.5 g/dL (6.6-8.7)
[2023-08-03 07:46] VITALS: BP 150/99; PULSE 96; RESP 18; TEMP 36.7; O2SAT 98
--- NOTE | 2023-08-03 08:01 | PC.NURSE ---
Patients dexcom read 130 at 0745.
--- NOTE | 2023-08-03 08:45 | PM.PN ---
Subjective Subjective: Patient doing well. no chest pain. Renal function is stable. Vitals/I&O/Wt Last Vital Signs Temp 98.1 F 08/03/23 07:46 Pulse 96 08/03/23 07:46 Resp 18 08/03/23 07:46 BP 150/99 08/03/23 07:46 Pulse Ox 98 08/03/23 07:46 O2 Del Method Room Air 08/03/23 04:00 08/02/23 08/03/23 08/03/23 22:59 06:59 14:59 Intake Total 360 / 807.667 400 / 1207.667 Balance 360 / -267.333 400 / 132.667 Weight last 48 hrs Weight 168 lb 3.2 oz Weight 172 lb 3.2 oz Physical Exam Narrative: GENERAL: Patient is alert, awake and oriented x3. [] NECK: No jugular vein distension. [] HEENT: No cyanosis. No icterus. No pallor. [] HEART: Regular S1 and S2. No murmur, rub or gallop. [] LUNGS: Clear to auscultate bilaterally. [] ABDOMEN: Soft, nontender and nondistended. EXTREMITIES: No edema Data 08/03/23 03:54 08/03/23 03:54 A&P Assessment and plan (1) Elevated troponin: (2) Acute on chronic systolic heart failure: (3) Atherosclerosis of coronary artery of [place] heart without angina pectoris: Qualifiers: Coronary Disease-Associated Artery/Lesion type: [place] artery Qualified Code(s): I25.10 - Atherosclerotic heart disease of [place] coronary artery without angina pectoris (4) Dyslipidemia: (5) Hypertension: Qualifiers: Hypertension type: primary hypertension Qualified Code(s): I10 - Essential (primary) hypertension (6) Diabetes mellitus: Qualifiers: Diabetes mellitus complication status: without complication Diabetes mellitus terminal superintendent insulin use: without usp use 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 Also has severe distal RCA stenosis. Underwent successful revascularization. He likely had a recent HI with significantly elevated troponins. Continue aspirin and Brilinta. LifeVest ordered. He wants to have it set up at home. Can be discharged home on metoprolol. If renal function is stable, can be started on entresto as outpatient. Thank you for involving us with care of this patient. Patient is stable to be discharged from cardiac standpoint. Please call with questions. Attestations Medical Necessity Statement*: Care expected to cross 2 midnights. 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
[2023-08-03] MEDS: atorvastatin 40 mg Tablet PO (09:24)
[2023-08-03] MEDS: ticagrelor 90 mg Tablet PO (09:24)
[2023-08-03] MEDS: aspirin 81 mg EC Tablet PO (09:24)
[2023-08-03] MEDS: metoprolol tartrate 25 mg Tablet PO (09:24)
[2023-08-03 11:30] VITALS: BP 124/83; PULSE 84; TEMP 36.4; O2SAT 97
[2023-08-03 11:41] VITALS: BP 124/88; PULSE 84; TEMP 36.4; O2SAT 97
--- NOTE | 2023-08-03 12:11 | PC.NURSE ---
Patient was discharged via a private car with his . Discharge paperwork discussed with patient and .
--- NOTE | 2023-08-03 23:32 | P.DS_ITS ---
Discharge Providers Date of Admission: 08/01/23 00:58 Date of Discharge: August 03, 2023 Attending Provider at Admission: Amy Noland MD Attending Provider at Discharge: Stalin Gross Primary Care Provider: Bret Gale MD Diagnoses at Discharge Discharge Diagnosis (1) Elevated troponin: Status: Acute (2) Acute on chronic systolic heart failure: Status: Acute (3) Atherosclerosis of coronary artery of [place] heart without angina pectoris: Status: Acute Qualifiers: Coronary Disease-Associated Artery/Lesion type: [place] artery Qualified Code(s): I25.10 - Atherosclerotic heart disease of [place] coronary artery without angina pectoris (4) Dyslipidemia: Status: Acute (5) Hypertension: Status: Acute Qualifiers: Hypertension type: primary hypertension Qualified Code(s): I10 - Essential (primary) hypertension (6) Diabetes mellitus: Status: Acute Qualifiers: Diabetes mellitus complication status: without complication Diabetes mellitus long term care pharmacist insulin use: without long term care pharmacist use Diabetes mellitus type: drug or chemical induced Qualified Code(s): 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 (7) Chronic kidney disease: Status: Chronic Qualifiers: Chronic kidney disease stage: stage 3 (moderate) Chronic kidney disease stage 3 subtype: stage 3a (GFR 45-59) Qualified Code(s): N18.31 - Chronic kidney disease, stage 3a (8) History of CVA (cerebrovascular accident) without residual deficits: Status: Acute Reason for Visit Reason for Visit: chest pain sob n/v swollen Brief History: Sebastien Martinez is a 57 year old male with history of ischemic cardiomyopathy EF 30 to 35%, chronic kidney disease, new baseline creatinine is usually on 2 which is worsened from 1, has started using Lasix 40 mg, follows up with cardiology clinic outpatient, presented with abdominal pain. Patient is stating that is lasting for 3 years ago he is on aspirin, does not take Plavix because he had a stroke on Plavix, his neurologist is in [place], today presenting after taking Lasix at 6 PM, after taking Lasix start experiencing abdominal pain and nausea. Patient stating that he has gained 6 pounds in last 1 week, for last 7 days he has been drinking 4 bottles of Gatorade 500 mL each and today was the first day he took Lasix because of orthopnea PND and weight gain. Patient was dehydrated that is why his primary care physician asked him to drink a lot of fluid. He recently had liver ultraso und which did not show any significant pathology there was some consideration given to HIDA scan. No history of gallstones. Patient is not endorsing significant episodes of vomiting after eating. He consider himself fairly active for his cardiomyopathy. Stating that no one has ever discussed AICD placement or LifeVest. His recent echo still showing reduced ejection fraction. In the ER he has been diagnosed with acute CHF exacerbation, acute on chronic kidney disease, hyperkalemia, congestive hepatopathy No active chest pain, patient ruled in for non-STEMI Troponin significantly elevated Hospital Course Hospital Course Received Lasix for CHF exacerbation initially with significant improvement in lower extremity edema, congestive hepatopathy improved. Acute kidney injury showing improvement. Hyperkalemia resolved. With rising troponin, NSTEMI, was treated as per NSTEMI protocol, was assessed by cardiology. Echocardiogram showed further worsening of ejection fraction down to 20-25%, RV moderately hypokinetic, mild MVR, mild AVR, mild TVR, moderate pulmonary hypertension. Trace pericardial effusion. Worsened ejection fraction from 2020. Stress test with abnormal results. Underwent further assessment with coronary angiography which showed severe ISR of proximal LAD stent. Underwent successful revascularization with balloon angioplasty. Also had severe stenosis of distal RCA and underwent successful revascularization with a stent. Therapeutic regimen was adjusted by cardiology to aspirin with Brilinta. He was are aware of need for continued medications due to risk of stent closure. Known to seek medical attention in case of any worsening or new concerning symptoms, or any concerning symptoms at the access site. He otherwise is feeling much better and was not wanting to stay in the hospital any longer. Please reassess renal function for continued improvement of ANTHONY. Physical Exam Narrative: Accompanied by family. Dressed in street clothes. Yang responses. Const: COMMON NORMALS: patient oriented x3 and alert GENERAL APPEARANCE: cooperative ORIENTATION/CONSCIOUSNESS: Yes awake HENMT: COMMON NORMALS: oropharynx normal Neck/C-Spine: COMMON NORMALS: no JVD Resp: COMMON NORMALS: normal respiratory effort and clear to auscultation bilaterally AUSCULTATION: clear to auscultation bilaterally Cardio: COMMON NORMALS: no JVD, regular rhythm, S1 normal heart sound present, S2 normal heart sound present and No murmurs present (Cardio) RHYTHM: regular rhythm HEART SOUNDS: S1 normal heart sound present and S2 normal heart sound present GI: COMMON NORMALS: Normal to inspection, nondistended, normoactive bowel sounds present, Soft to palpation and non-tender PALPATION: Yes Soft to palpation Extremity: COMMON NORMALS: no joint enlargement GENERAL: Yes edema (2+ BLLE edema.) OTHER: Right groin access site without bleeding or swelling, no pulsatile mass. Neuro: COMMON NORMALS: patient oriented x3 and moves all extremities SENSORIUM/ORIENTATION: Yes alert Skin: COMMON NORMALS: no rashes or lesions noted GENERAL SKIN EXAM: no rashes or lesions noted Discharge Data Studies Completed and Pending Completed Studies During Hospitalization Category Date Time Status Sestamibi Stress Test Request Routine Exams 08/01/23 01:52 Draft XR KUB portable [id number] Stat Exams 08/01/23 00:30 Completed XR chest 1V portable [id number] Stat Exams 07/31/23 23:20 Completed NM ayla perf SPECT r/s* [id number] Routine Nuc Med 08/01/23 01:52 Completed Pending at discharge Category Date Time Status WEBSITE PROGRAMMER request for service Routine Exams 08/02/23 07:21 Taken Radiology Impressions Chest X-Ray 07/31/23 23:20 IMPRESSION: Mild cardiac enlargement without overt interstitial edema. KUB X-Ray 08/01/23 00:30 IMPRESSION: Relative lack of bowel gas, with overall nonobstructive plain radiographic bowel-gas pattern. Laboratory Results WBC 6.78 10^3/uL (3.29-11.43) 08/03/23 03:54 RBC 3.92 10^6/uL (3.85-5.65) 08/03/23 03:54 Hgb 12.40 g/dL (11.27-16.99) 08/03/23 03:54 Hct 37.7 % (37-53) 08/03/23 03:54 MCV 96.2 fl (82-101) 08/03/23 03:54 MCH 31.6 pg (27-33) 08/03/23 03:54 MCHC 32.9 g/dL (30-55) 08/03/23 03:54 RDW 12.8 % (12.1-15.1) 08/03/23 03:54 Plt Count 219 10^3/cmm (157-399) 08/03/23 03:54 MPV 10.5 fL (7.4-10.4) H 08/03/23 03:54 Neut % (Auto) 64.5 % 08/03/23 03:54 Lymph % (Auto) 21.4 % 08/03/23 03:54 [place] % (Auto) 7.5 % 08/03/23 03:54 Eos % (Auto) 5.9 % 08/03/23 03:54 Baso % (Auto) 0.4 % 08/03/23 03:54 Neut # (Auto) 4.37 10^3/uL (1.8-7.7) 08/03/23 03:54 Lymph # (Auto) 1.5 10^3/uL (0.8-4.8) 08/03/23 03:54 [place] # (Auto) 0.5 10^3/uL (0.2-0.9) 08/03/23 03:54 Eos # (Auto) 0.4 10^3/uL (0.0-0.8) 08/03/23 03:54 Baso # (Auto) 0.0 10^3/uL (0.0-0.1) 08/03/23 03:54 Nucleated RBC % (auto) 0 % 08/03/23 03:54 Nucleated RBCs # 0.0 /100WBC 08/03/23 03:54 PT 14.10 SECONDS (12.1-14.9) 07/31/23 23:32 INR 1.06 (0.8-1.2) 07/31/23 23:32 APTT 81.9 SECONDS (23.9-36.7) H 08/02/23 02:24 Sodium 139 mmol/L (136-145) 08/03/23 03:54 Potassium 4.3 mmol/L (3.5-5.1) 08/03/23 03:54 Chloride 101 mmol/L (98-107) 08/03/23 03:54 Carbon Dioxide 28 mmol/L (22-29) 08/03/23 03:54 Anion Gap 14.3 (5-19) 08/03/23 03:54 BUN 25 mg/dL (6-20) H 08/03/23 03:54 Creatinine 1.7 mg/dL (0.7-1.2) H 08/03/23 03:54 GFR Calculation 42.1 mL/min (90-130) L 08/03/23 03:54 Glucose 131 mg/dL (65-115) H 08/03/23 03:54 POC Glucose 117 mg/dL (70-110) H 08/02/23 06:41 Calculated Osmolality 294 mOsm/kg (285-295) 08/03/23 03:54 Calcium 8.7 mg/dL (8.5-10.5) 08/03/23 03:54 Phosphorus 4.5 mg/dL (2.5-4.5) 08/01/23 05:34 Magnesium 2.1 mg/dL (1.7-2.3) 08/01/23 05:34 Total Bilirubin 0.5 mg/dL (0.15-1.2) 08/03/23 03:54 AST 19 U/L (0-40) 08/03/23 03:54 ALT 46 U/L (0-41) H 08/03/23 03:54 Alkaline Phosphatase 169 U/L (40-130) H 08/03/23 03:54 Ammonia 12 umol/L (16-60) L 07/31/23 23:32 Troponin T Baseline 557 ng/L (0-15) H* 07/31/23 23:32 Troponin T 120 Minute 504.6 ng/L (0-15) H 08/01/23 01:21 Delta Troponin T -52.4 ABS# (0-10) L 08/01/23 01:21 Troponin T Hi Sens 6Hr 446.8 ng/L (0-15) H 08/01/23 05:34 Troponin T Hi Sens 6Hr Delta -110.2 ng/L (0-12) L 08/01/23 05:34 C-Reactive Protein 3.2 mg/L (0.0-4.9) 08/01/23 05:34 NT-Pro-B Natriuret Pep 45907 pg/mL (0-125) H 07/31/23 23:32 Total Protein 5.5 g/dL (6.6-8.7) L 08/03/23 03:54 Albumin 3.0 g/dL (3.5-5.2) L 08/03/23 03:54 Globulin 2.5 g/dL (1.3-4.6) 08/03/23 03:54 Lipase 41 U/L (13-60) 07/31/23 23:32 Urine Color Light yellow (Yellow) 08/01/23 02:13 Urine Appearance Clear (CLEAR) 08/01/23 02:13 Urine pH 5 (5-7) 08/01/23 02:13 Ur Specific [place] 1.015 (1.005-1.030) 08/01/23 02:13 Urine Protein 1+ (Negative) H 08/01/23 02:13 Urine Glucose (UA) 4+ (Normal) H 08/01/23 02:13 Urine Ketones Negative (Negative) 08/01/23 02:13 Urine Blood Neg (Negative) 08/01/23 02:13 Urine Nitrate Negative (Negative) 08/01/23 02:13 Urine Bilirubin Neg (Negative) 08/01/23 02:13 Urine Urobilinogen Neg mg/dL (Negative) 08/01/23 02:13 Ur Leukocyte Esterase Negative (Negative) 08/01/23 02:13 Urine RBC 0-4 /hpf (0-2) H 08/01/23 02:13 Urine WBC None /hpf (0-5) 08/01/23 02:13 Ur Squamous Epith Cells None /hpf (0-5) 08/01/23 02:13 Amorphous Sediment Not Reportable 08/01/23 02:13 Urine Bacteria Trace /hpf (NONE) 08/01/23 02:13 Urine Mucus Trace /hpf 08/01/23 02:13 Vitals Last Vital Signs Temp 97.5 F L 08/03/23 11:41 Pulse 84 08/03/23 11:41 Resp 18 08/03/23 07:46 BP 124/88 08/03/23 11:41 Pulse Ox 97 08/03/23 11:41 O2 Del Method Room Air 08/03/23 11:30 Discharge Plan Discharge Patient Disposition: Home Condition: Stable Prescriptions: New Brilinta 90 mg Tablet 90 mg PO BID Qty: 180 0RF Continued diphenoxylate-atropine [Lomotil] 2.5-0.025 mg tablet 1 tab PO DAILY PRN (Reason: loose stools) Men's Multivitamin Gummies 200 mcg tablet,chewable 1 tab PO DAILY furosemide 40 mg tablet 40 mg PO DAILY Qty: 60 0RF insulin lispro [Humalog KwikPen Insulin] 100 unit/mL insulin pen 4 unit SUBCUT TID Rx Instructions: Sliding scale Probiotic Gummies 1 tab PO DAILY atorvastatin 40 mg Tablet 40 mg PO DAILY Qty: 30 0RF aspirin 81 mg tablet,delayed release (DR/EC) 81 mg PO DAILY Qty: 90 3RF Hold Instructions: stroke fluticasone propionate 50 mcg/actuation spray,suspension 2 mcg INTRANASAL DAILY Claritin 10 mg Tablet 10 mg PO DAILY Tresiba FlexTouch U-100 100 unit/mL (3 mL) insulin pen 4 unit SUBCUT DAILY Farxiga 10 mg Tablet 10 mg PO QAM Discontinued clopidogrel 75 mg tablet 75 mg PO DAILY Qty: 90 6RF Discharge Orders: Discharge Order (Routine); Ordered 08/03/23 Ordered By: Stalin Gross Referrals: Bret Gale MD [Primary Care Provider] - 08/07/23 9:15 am Vanna Mckeon FNP [Nurse Practitioner] - 08/17/23 1:30 pm Discharge Diet: Cardiac Discharge Activity: Increase activity as tolerated and Limit activity as instructed Patient Instructions: Heart Failure (DC), Coronary Angioplasty (DC), CHF Stoplight, Opioid Safety, Post Angiogram Home Care Instructions Activity Restrictions/Additional Instructions: Please follow-up with your primary provider and cardiology for reassessment of coronary disease after additional stent placement, restenosis of previous stent, medication change to aspirin together with Brilinta instead of Plavix. Please make sure to take the medications without missing any doses to avoid stent closing which may risk heart attack. Follow-up with primary provider and cardiology for reassessment of congestive heart failure. Limit fluid intake to less than 50 ounces or 1500 mL total in 24 hours. In case of any swelling, pulsatile mass, bleeding at the access site for coronary angiography or numbness or pale discoloration or any other concerning symptoms seek medical attention. Avoid lifting more than 3 pounds for 2 days. Seek medical attention in case of any worsening or new concerning symptoms. Discharge Attestations Time Spent in Discharge Care*: greater than 30 min Quality Metrics Clinical Quality Measures [ Acute Myocardial Infaction { Clinical Trial Participant: No; Contraindication to aspirin: None; Aspirin prescribed; Contraindication to statin: None; Statin prescribed;}. 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
== END 2023-08-03 12:11 | disposition home or self-care (01) | DRG 321 ==
LOC: ER 08-01 00:39 → CSU 08-01 00:58
PROVIDERS: Internal Medicine; Admitting Provider Internal Medicine; Emergency Provider Physician Assistant; PCP Family Medicine; Visit Provider Internal Medicine
PROC: 027034Z Dilation of Coronary Artery, One Artery with Drug-eluting Intraluminal Device, Percutaneous Approach (ICD-10-PCS; principal; 2023-08-02 10:10)
PROC: 027034Z Dilation of Coronary Artery, One Artery with Drug-eluting Intraluminal Device, Percutaneous Approach (ICD-10-PCS; 2023-08-02 10:10)
DX: I21.4 Non-ST elevation (NSTEMI) myocardial infarction (principal); I50.23 Acute on chronic systolic (congestive) heart failure; T82.855A Stenosis of coronary artery stent, initial encounter; I13.0 Hypertensive heart and chronic kidney disease with heart failure and stage 1 through stage 4 chronic kidney disease, or unspecified chronic kidney disease; N17.9 Acute kidney failure, unspecified; Y71.8 Miscellaneous cardiovascular devices associated with adverse incidents, not elsewhere classified; I25.5 Ischemic cardiomyopathy; N18.31 Chronic kidney disease, stage 3a; E11.22 Type 2 diabetes mellitus with diabetic chronic kidney disease; E87.5 Hyperkalemia; I25.10 Atherosclerotic heart disease of native coronary artery without angina pectoris; Z95.5 Presence of coronary angioplasty implant and graft; I25.2 Old myocardial infarction; Z79.82 Long term (current) use of aspirin; Z86.73 Personal history of transient ischemic attack (TIA), and cerebral infarction without residual deficits; Z79.4 Long term (current) use of insulin; Z79.02 Long term (current) use of antithrombotics/antiplatelets
CPT/HCPCS: 36415; 36416; 71045; 74018; 78452; 80048; 80053; 81001; 82140; 82962; 83690; 83735; 83880; 84100; 84484; 85025; 85347; 85610; 85730; 86140; 92920; 93005; 93017; 93454; 96372; 96374; 96375; 96376; 99152; 99153; 99285; A9270; A9500; C1725; C1760; C1769; C1874; C1887; C1894; C9600; G0269; J0612; J1200; J1644; J1815; J1940; J2250; J2405; J2785; J3010; J3490; J7030; Q9967

== ENCOUNTER 2023-08-18 10:12 | Outpatient (CLI) | payer BC, SELFPAY ==
[2023-08-18 11:10] LABS: Anion Gap 14.8 (5-19); Blood Urea Nitrogen 30 mg/dL (6-20); Calcium 9.2 mg/dL (8.5-10.5); Carbon Dioxide 22 mmol/L (22-29); Chloride 106 mmol/L (98-107); Glomerular Filtration Rate 52.6 mL/min (90-130); Glucose 146 mg/dL (65-115); NT Pro B Type Natriuretic Pept 13224 pg/mL (0-125); Osmolality Calculated 295 mOsm/kg (285-295); Potassium 4.8 mmol/L (3.5-5.1); Sodium 138 mmol/L (136-145)
== END 2023-08-18 10:13 | disposition home or self-care (01) ==
LOC: LAB 10:14
PROVIDERS: PCP Family Medicine; Visit Provider Nurse Practitioner Family
DX: I25.5 Ischemic cardiomyopathy (principal); I50.22 Chronic systolic (congestive) heart failure; I10 Essential (primary) hypertension
CPT/HCPCS: 36415; 80048; 83880

== ENCOUNTER 2023-08-25 11:23 | Outpatient (CLI) | payer BC, SELFPAY ==
[2023-08-25 12:02] LABS: Anion Gap 12.6 (5-19); Blood Urea Nitrogen 18 mg/dL (6-20); Carbon Dioxide 27 mmol/L (22-29); Chloride 105 mmol/L (98-107); Glomerular Filtration Rate 62.9 mL/min (90-130); Glucose 153 mg/dL (65-115); NT Pro B Type Natriuretic Pept 12209 pg/mL (0-125); Osmolality Calculated 295 mOsm/kg (285-295); Potassium 4.6 mmol/L (3.5-5.1); Sodium 140 mmol/L (136-145)
== END 2023-08-25 11:24 | disposition home or self-care (01) ==
LOC: LAB 11:24
PROVIDERS: PCP Family Medicine; Visit Provider Nurse Practitioner Family
DX: I50.22 Chronic systolic (congestive) heart failure (principal); I10 Essential (primary) hypertension
CPT/HCPCS: 36415; 80048; 83880

== ENCOUNTER → 2023-09-13 10:35 | Outpatient (BNVA) | payer BC, SELFPAY | PROVIDERS: PCP Family Medicine; Visit Provider Nurse Practitioner Family | DX: I50.22 Chronic systolic (congestive) heart failure (principal); I10 Essential (primary) hypertension | CPT/HCPCS: 36415; 80048; 83880 ==

== ENCOUNTER 2023-09-18 12:09 | Observation (INO) | payer BC, SELFPAY ==
[2023-09-18] VITALS (8 sets, daily range): BP systolic 118–153; BP diastolic 72–114; PULSE 60–86; RESP 17–20; TEMP 36.4–36.9; O2SAT 96–100; BMI 26.6
--- NOTE | 2023-09-18 12:12 | XRR_ITS ---
PROCEDURE INFORMATION: Exam: XR Chest Exam date and time: 09/18/2023 12:21 PM Age: 57 years old Clinical indication: Pain; Angina pectoris; Additional info: Chest pain TECHNIQUE: Imaging protocol: Radiologic exam of the chest. Views: 1 view. COMPARISON: CR XR chest 1V portable [id number] 31/07/2023 23:36 FINDINGS: Lungs: Unremarkable. No consolidation. Pleural spaces: Unremarkable. No pleural effusion. No pneumothorax. Heart/Mediastinum: Unremarkable. Stable borderline cardiomegaly Bones/joints: Unremarkable. XR/XR chest 1V portable [id number] IMPRESSION: Stable borderline cardiomegaly, otherwise clear chest
--- NOTE | 2023-09-18 12:12 | ECG_ITS ---
[facility] Test Date: 2023-09-18 Pat Name: Sebastien Martinez Department: Room: Gender: Male Prisoner Classification Interviewer: : 1965 Requested By: Ariana Colmenares Order Number: [id number] Albina MD: Liza Steward M.D. Measurements Intervals [place] Rate: 60 P: 64 [place]: 171 QRS: -42 QRSD: 84 T: 240 QT: 413 QTc: 415 Interpretive Statements SINUS RHYTHM LEFT ATRIAL ENLARGEMENT [-0.15mV P-WAVE IN V1/V2] LEFT AXIS DEVIATION [QRS AXIS < -30] SEPTAL MYOCARDIAL INFARCTION , PROBABLY OLD [40+ ms Q WAVE IN V1/V2] Compared to ECG 08/01/2023 03:42:57 Left-axis deviation now present Myocardial infarct finding still present Electronically Signed On 09-18-2023 17:56:46 CDT by Liza Steward M.D. [id number]
--- NOTE | 2023-09-18 14:10 | ED_ITS ---
HPI - Chest Pain 2 General: Chief Complaint: Chest Pain Stated Complaint: chest pain Time Seen by Provider: 09/18/23 14:05 Source: patient Mode of arrival: ambulatory History of Present Illness: 57-year-old male presents to the emergen cy room complaining of nausea chest discomfort that radiates to the epigastric region with weakness and chills. Patient is diabetic has a known history of coronary artery disease has had several stents in the past. He is also noticed increasing swelling in his lower extremities and increasing shortness of breath he is on Lasix and spironolactone despite this he still has increasing swelling. In addition to this he is also on metolazone. No active chest pain at this time. Increasing cough and dyspnea with exertion and orthopneic symptoms last several days MD complaint: chest pain Onset (ago): day(s) Timing of current episode: episodic Pain location: epigastric Pain radiation: other (chest) Severity: mild Quality: aching Relieving factors: nothing Exacerbating factors: nothing Associated symptoms: Deny abdominal pain, dyspnea or fever(s) Risk Factors: Coronary artery disease risk factors: diabetes Review of Systems 2 Const: Denies: fever(s) or chills Card: Denies: chest pain Resp: Denies: dyspnea GI: Denies: abdominal pain : Denies: dysuria, urinary frequency or urinary urgency Musc: Denies: neck pain or back pain Skin/Breast: Denies: rash PFSH ED 2 PFSH: Medical History Acute right arterial ischemic stroke, middle cerebral artery (MCA) CHF (congestive heart failure) Stroke Dyslipidemia Congestive heart failure Last ejection fraction 20-25% CAD (coronary artery disease) Has had stents in RCA, LAD, circumflex with last procedure being angioplasty LAD stent 2018 Ischemic cardiomyopathy History of heart attack Diabetes mellitus Palmar fascial fibromatosis [dupuytren] Surgical History Hx of shoulder surgery History of eye surgery History of coronary angiogram Family History Other CAD (coronary artery disease) Diabetes Social History Smoking and tobacco/nicotine status: never used tobacco/nicotine Alcohol intake: never Substance/Drug Use: never Physical Exam 2 Const: GENERAL APPEARANCE: cooperative and comfortable O RIENTATION/CONSCIOUSNESS: Yes awake, Yes oriented to person, Yes oriented to place and Yes oriented to time HENMT: COMMON NORMALS: normocephalic, atraumatic and hearing grossly normal bilaterally HEAD & SCALP: normocephalic and atraumatic Resp: COMMON NORMALS: normal respiratory effort, No retractions and No use of accessory muscles AUSCULTATION: crackles Cardio: COMMON NORMALS: regular rate, regular rhythm and No murmurs present (Cardio) RATE: regular rate RHYTHM: regular rhythm GI: COMMON NORMALS: Soft to palpation and No hepatosplenomegaly present A USCULTATION: Yes normoactive bowel sounds PALPATION: Yes Soft to palpation, No Tenderness to palpation present (GI), No Guarding due to palpation present (GI) and Yes No hepatosplenomegaly present Extremity: COMMON NORMALS: normal to inspection, capillary refill normal and no calf tenderness GENERAL: Yes edema (+2) Neuro: SENSORIUM/ORIENTATION: Yes oriented to person, Yes oriented to place and Yes oriented to time Skin: COMMON NORMALS: no rashes or lesions noted GENERAL SKIN EXAM: no rashes or lesions noted Course 2 Vital Signs: Vital signs: Vital Signs Temperature 97.6 F 09/18/23 12:12 Pulse Rate 62 09/18/23 14:57 Respiratory Rate 17 09/18/23 12:12 Blood Pressure 118/72 09/18/23 14:57 Pulse Oximetry 100 09/18/23 14:57 Oxygen Delivery Me thod Room Air 09/18/23 14:57 MDM - Chest Pain Medical Decision Making Decompensated heart failure with increasing edema hyperkalemia as a side effect of the spironolactone. Was given Lasix in the emergency room so far has not had any output in addition to this he has hyperkalemia and some mild acute kidney injury. Will place patient on observation for further diuresis, medication adjustments and correction of his hyperkalemia Medical Records I reviewed the patient's medical records. Lab Data I reviewed the patient's lab results. 09/18/23 14:08 09/18/23 14:08 Radiology Impressions Chest X-Ray 09/18/23 12:12 IMPRESSION: Stable borderline cardiomegaly, otherwise clear chest Laboratory Results WBC 6.82 10^3/uL (3.29-11.43) 09/18/23 14:08 RBC 4.60 10^6/uL (3.85-5.65) 09/18/23 14:08 Hgb 14.80 g/dL (11.27-16.99) 09/18/23 14:08 Hct 45.7 % (37-53) 09/18/23 14:08 MCV 99.3 fl (82-101) 09/18/23 14:08 MCH 32.2 pg (27-33) 09/18/23 14:08 MCHC 32.4 g/dL (30-55) 09/18/23 14:08 RDW 14.2 % (12.1-15.1) 09/18/23 14:08 Plt Count 243 10^3/cmm (157-399) 09/18/23 14:08 MPV 11.1 fL (7.4-10.4) H 09/18/23 14:08 Neut % (Auto) 70.8 % 09/18/23 14:08 Lymph % (Auto) 19.1 % 09/18/23 14:08 Crook % (Auto) 5.3 % 09/18/23 14:08 Eos % (Auto) 3.8 % 09/18/23 14:08 Baso % (Auto) 0.7 % 09/18/23 14:08 Neut # (Auto) 4.83 10^3/uL (1.8-7.7) 09/18/23 14:08 Lymph # (Auto) 1.3 10^3/uL (0.8-4.8) 09/18/23 14:08 Crook # (Auto) 0.4 10^3/uL (0.2-0.9) 09/18/23 14:08 Eos # (Auto) 0.3 10^3/uL (0.0-0.8) 09/18/23 14:08 Baso # (Auto) 0.1 10^3/uL (0.0-0.1) 09/18/23 14:08 Nucleated RBC % (auto) 0 % 09/18/23 14:08 Nucleated RBCs # 0.0 /100WBC 09/18/23 14:08 Sodium 133 mmol/L (136-145) L 09/18/23 14:08 Potassium 5.7 mmol/L (3.5-5.1) H 09/18/23 14:08 Chloride 102 mmol/L (98-107) 09/18/23 14:08 Carbon Dioxide 22 mmol/L (22-29) 09/18/23 14:08 Anion Gap 14.7 (5-19) 09/18/23 14:08 BUN 31 mg/dL (6-20) H 09/18/23 14:08 Creatinine 1.5 mg/dL (0.7-1.2) H 09/18/23 14:08 GFR Calculation 48.6 mL/min (90-130) L 09/18/23 14:08 Glucose 187 mg/dL (65-115) H 09/18/23 14:08 Calculated Osmolality 287 mOsm/kg (285-295) 09/18/23 14:08 Calcium 9.3 mg/dL (8.5-10.5) 09/18/23 14:08 Total Bilirubin 0.9 mg/dL (0.15-1.2) 09/18/23 14:08 AST 41 U/L (0-40) H 09/18/23 14:08 ALT 44 U/L (0-41) H 09/18/23 14:08 Alkaline Phosphatase 135 U/L (40-130) H 09/18/23 14:08 Troponin T Baseline 44 ng/L (0-15) H 09/18/23 14:08 NT-Pro-B Natriuret Pep 89121 pg/mL (0-125) H 09/18/23 14:08 Total Protein 7.4 g/dL (6.6-8.7) 09/18/23 14:08 Albumin 3.9 g/dL (3.5-5.2) 09/18/23 14:08 Globulin 3.5 g/dL (1.3-4.6) 09/18/23 14:08 All radiology interpretation(s) finalized by discharge Discharge Plan Discharge Patient Disposition: Placed in Observation Clinical Impression: Acute on chronic systolic heart failure, Ischemic cardiomyopathy, Acute kidney injury, Hyperkalemia Condition: Stable Prescriptions: No Action diphenoxylate-atropine [Lomotil] 2.5-0.025 mg tablet 1 tab PO DAILY PRN (Reason: loose stools) Men's Multivitamin Gummies 200 mcg tablet,chewable 1 tab PO DAILY sacubitril-valsartan 49-51 mg tablet 0.5 tab PO BID furosemide 40 mg tablet See Rx Instructions PO DAILY Rx Instructions: 40mg in the AM, 20mg at 2PM orally daily; spironolactone 25 mg tablet 25 mg PO DAILY Qty: 30 3RF metolazone 2.5 mg tablet 2.5 mg PO DAILY Qty: 1 1RF Rx Instructions: Take 30 minutes before morning lasix dose insulin lispro [Humalog KwikPen Insulin] 100 unit/mL insulin pen 4 unit SUBCUT TID Rx Instructions: Sliding scale Probiotic Gummies 1 tab PO DAILY atorvastatin 40 mg Tablet 40 mg PO DAILY Qty: 30 0RF aspirin 81 mg tablet,delayed release (DR/EC) 81 mg PO DAILY Qty: 90 3RF Hold Instructions: stroke fluticasone propionate 50 mcg/actuation spray,suspension 2 mcg INTRANASAL DAILY Claritin 10 mg Tablet 10 mg PO DAILY Tresiba FlexTouch U-100 100 unit/mL (3 mL) insulin pen 4 unit SUBCUT DAILY Farxiga 10 mg Tablet 10 mg PO QAM Brilinta 90 mg Tablet 90 mg PO BID Qty: 180 0RF Referrals: Bret Gale MD [Primary Care Provider] - Patient Instructions: Opioid Safety, Pain Management Coding Level of Care Code ED General 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
--- NOTE | 2023-09-18 14:12 | ECG_ITS ---
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 Measurements Intervals [place] Rate: 61 P: 60 [place]: 168 QRS: -24 QRSD: 77 T: -61 QT: 405 QTc: 408 Interpretive Statements SINUS RHYTHM LEFT ATRIAL ENLARGEMENT [-0.15mV P-WAVE IN V1/V2] SEPTAL MYOCARDIAL INFARCTION , PROBABLY OLD [40+ ms Q WAVE IN V1/V2] Diffuse nonspecific T wave changes Compared to ECG 09/18/2023 12:10:17 Left-axis deviation no longer present Myocardial infarct finding still present Electronically Signed On 09-18-2023 18:10:09 CDT by Liza Steward M.D. [id number]
[2023-09-18 14:15] LABS: Basophils # 0.1 10^3/uL (0.0-0.1); Basophils % 0.7 %; Eosinophils # 0.3 10^3/uL (0.0-0.8); Eosinophils % 3.8 %; Hematocrit 45.7 % (37-53); Lymphocytes # 1.3 10^3/uL (0.8-4.8); Lymphocytes % 19.1 %; Mean Corpuscular HGB Conc 32.4 g/dL (30-55); Mean Corpuscular Hemoglobin 32.2 pg (27-33); Mean Corpuscular Volume 99.3 fl (82-101); Mean Platelet Volume 11.1 fL (7.4-10.4); Monocytes # 0.4 10^3/uL (0.2-0.9); Monocytes % 5.3 %; Neutrophils # 4.83 10^3/uL (1.8-7.7); Neutrophils % 70.8 %; Nucleated Red Blood Cells % 0 %; Platelet Count 243 10^3/cmm (157-399); Red Cell Distribution Width 14.2 % (12.1-15.1); White Blood Count 6.82 10^3/uL (3.29-11.43)
[2023-09-18] MEDS: aspirin 81 mg Chew Tablet 324 MG PO (14:41)
[2023-09-18 14:48] LABS: Troponin(5th) Baseline 44 ng/L (0-15)
[2023-09-18 14:55] LABS: Alanine Aminotransferase 44 U/L (0-41); Albumin Level 3.9 g/dL (3.5-5.2); Alkaline Phosphatase 135 U/L (40-130); Anion Gap 14.7 (5-19); Aspartate Amino Transferase 41 U/L (0-40); Blood Urea Nitrogen 31 mg/dL (6-20); Calcium 9.3 mg/dL (8.5-10.5); Carbon Dioxide 22 mmol/L (22-29); Chloride 102 mmol/L (98-107); Creatinine Clr Calc Pharmacy 55.0611; Globulin 3.5 g/dL (1.3-4.6); Glomerular Filtration Rate 48.6 mL/min (90-130); Glucose 187 mg/dL (65-115); NT Pro B Type Natriuretic Pept 17255 pg/mL (0-125); Osmolality Calculated 287 mOsm/kg (285-295); Potassium 5.7 mmol/L (3.5-5.1); Sodium 133 mmol/L (136-145); Total Bilirubin 0.9 mg/dL (0.15-1.2); Total Protein 7.4 g/dL (6.6-8.7)
[2023-09-18] MEDS: FUROsemide 10 mg/mL SDV 4mL 40 MG IVP (14:56)
[2023-09-18] MEDS: sodium polystyrene sulfonate 15 gm/60 mL Btl PO (15:40)
--- NOTE | 2023-09-18 16:02 | PM.HP ---
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 As per the who is at bedside every morning he wakes up would experience dry heaves, patient is denying previous history of gastric ulcer. Patient started vomiting while getting calcium gluconate, I gave him Zofran requested GI cocktail and CT abdomen pelvis without contrast. He does have acute on chronic kidney disease hyperkalemia clinically has signs of fluid overload as well. Recently spironolactone and metolazone was added to his regimen by the RN. Review of Systems Const: Denies: fever(s) Eyes: Denies: change in vision ENMT: Denies: throat pain Card: Denies: chest pain Resp: Denies: dyspnea GI: Reports: abdominal pain, nausea and vomiting : Denies: flank pain Musc: Denies: neck pain Medications/Allergies Home Medications Medication Instructions Recorded Confirmed Last Taken Type Probiotic Gummies 1 tab PO DAILY 07/05/21 09/13/23 07/31/23 History aspirin 81 mg tablet,delayed 81 mg PO DAILY #90 tabs 07/07/21 09/13/23 08/01/23 Rx release atorvastatin 40 mg tablet 40 mg PO DAILY #30 tabs 07/07/21 09/13/23 07/31/23 Rx diphenoxylate-atropine 2.5 1 tab PO DAILY PRN loose stools 11/10/22 09/13/23 Unknown History mg-0.025 mg tablet (Lomotil) insulin lispro 100 unit/mL 4 unit SUBCUT TID 11/10/22 09/13/23 07/31/23 History subcutaneous pen (Humalog KwikPen (U-100) Insulin) multivitamin with minerals-folic 1 tab PO DAILY 11/10/22 09/13/23 07/31/23 History acid 200 mcg chewable tablet (Men's Multivitamin Gummies) dapagliflozin propanediol 10 mg 10 mg PO QAM 08/01/23 09/13/23 07/31/23 History tablet (Farxiga) fluticasone propionate 50 2 mcg intranasal DAILY 08/01/23 09/13/23 07/31/23 History mcg/actuation nasal spray,suspension insulin degludec 100 unit/mL (3 4 unit SUBCUT DAILY 08/01/23 09/13/23 07/31/23 History mL) subcutaneous pen (Tresiba FlexTouch U-100 insulin) loratadine 10 mg tablet (Claritin) 10 mg PO DAILY 08/01/23 09/13/23 07/31/23 History ticagrelor 90 mg tablet (Brilinta) 90 mg PO BID #180 tabs 08/03/23 09/13/23 Unknown Rx furosemide 40 mg tablet See Rx Instructions PO DAILY 09/13/23 09/13/23 Unknown History metolazone 2.5 mg tablet 2.5 mg PO DAILY #1 tab 09/13/23 09/13/23 Unknown Rx sacubitril 49 mg-valsartan 51 mg 0.5 tab PO BID 09/13/23 09/13/23 Unknown History tablet spironolactone 25 mg tablet 25 mg PO DAILY #30 tabs 09/13/23 09/13/23 Unknown Rx Allergies Allergy/AdvReac Type Severity Reaction Status Date / Time Opioids - Morphine Analogues AdvReac Mild Unknown Verified 09/18/23 12:16 PFSH Acute PFSH: Medical History Acute right arterial ischemic stroke, middle cerebral artery (MCA) CHF (congestive heart failure) Stroke Dyslipidemia Congestive heart failure Last ejection fraction 20-25% CAD (coronary artery disease) Has had stents in RCA, LAD, circumflex with last procedure being angioplasty LAD stent 2018 Ischemic cardiomyopathy History of heart attack Diabetes mellitus Palmar fascial fibromatosis [dupuytren] Surgical History Hx of shoulder surgery History of eye surgery History of coronary angiogram Family History Other CAD (coronary artery disease) Diabetes Social History Smoking and tobacco/nicotine status: never used tobacco/nicotine Alcohol intake: never Substance/Drug Use: never Vitals/I&O/Wt Last Vital Signs Temp 97.6 F 09/18/23 12:12 Pulse 62 09/18/23 14:57 Resp 17 09/18/23 12:12 BP 118/72 09/18/23 14:57 Pulse Ox 100 09/18/23 14:57 O2 Del Method Room Air 09/18/23 14:57 Weight last 48 hrs Weight 75.75 kg Physical Exam Narrative: Awake and alert GCS 15 Active chest pain No active shortness of breath Hemodynamic stable Complaining of midepigastric pain GCS 15 Nonfocal neuroexam Data 09/18/23 14:08 09/18/23 14:08 A&P Assessment and plan (1) Epigastric abdominal pain: (2) Hypertension: Qualifiers: Hypertension type: primary hypertension Qualified Code(s): I10 - Essential (primary) hypertension (3) Ischemic cardiomyopathy: (4) Congestive heart failure: Qualifiers: Heart failure chronicity: chronic Heart failure type: systolic Qualified Code(s): I50.22 - Chronic systolic (congestive) heart failure (5) Acute on chronic systolic heart failure: (6) Diabetes mellitus: Qualifiers: Diabetes mellitus complication status: without complication Diabetes mellitus senior care insulin use: without technician terminal and repeater use Diabetes mellitus type: drug or chemical induced Qualified Code(s): 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 (7) Acute kidney injury: (8) Chronic kidney disease: Qualifiers: Chronic kidney disease stage: stage 3 (moderate) Chronic kidney disease stage 3 subtype: stage 3a (GFR 45-59) Qualified Code(s): N18.31 - Chronic kidney disease, stage 3a (9) Hyperkalemia: Plan Midepigastric pain Check lipase Check gallbladder ultrasound Require CT abdomen pelvis on stat basis No active chest pain or shortness of breath No previous history of gastric ulcer Hyperkalemia with acute on chronic kidney disease Hold Entresto and spironolactone and metolazone I will switch his diuretics to Bumex instead Systolic CHF exacerbation Add Bumex Patient has refused LifeVest, agreeable for AICD if EF has not improved Outpatient echo after 90 days 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, patient and 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 coworkers are well aware of potential complications while operating machine Full code Cardiac consistent carb diet At insulin scale DVT prophylaxis: Heparin I will add Protonix, will give him GI cocktail Requested gallbladder ultrasound Rule out gastroparesis check A1c level he might need nuclear gastric emptying study Attestations Medical Necessity Statement*: Anticipating discharge within 48 hours Diagnoses Epigastric abdominal pain R10.13 Primary hypertension I10 Hypertension type: primary hypertension Ischemic cardiomyopathy I25.5 Chronic systolic congestive heart failure I50.22 Heart failure chronicity: chronic Heart failure type: systolic Acute on chronic systolic heart failure I50.23 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
--- NOTE | 2023-09-18 16:22 | CTR_ITS ---
PROCEDURE INFORMATION: Exam: CT Abdomen And Pelvis Without Contrast Exam date and time: 09/18/2023 4:33 PM Age: 57 years old Clinical indication: Nausea; Abdominal pain; Generalized; Additional info: Abd pain TECHNIQUE: Imaging protocol: Computed tomography of the abdomen and pelvis without contrast. Radiation optimization: All CT scans at this facility use at least one of these dose optimization techniques: automated exposure control; mA and/or kV adjustment per patient size (includes targeted exams where dose is matched to clinical indication); or iterative reconstruction. COMPARISON: CR XR KUB portable [id number] 01/08/2023 00:32 RADIATION DOSE METRICS: Total DLP (mGy-cm): 523.73 FINDINGS: Lungs: Hypoventilatory changes of the lung bases. Pleural spaces: Small bilateral pleural effusions, [id number]-left. Heart: Mild cardiomegaly. No significant pericardial effusion. Coronary arteries: There are coronary artery stents. Liver: Normal. No mass. Gallbladder and bile ducts: Query mild gallbladder wall thickening. Not a definite finding as there are breathing motion artifacts in the upper abdomen. Consider gallbladder ultrasound to further evaluate. No calcified gallstones visible by CT Pancreas: Noncontrast imaging of the pancreatic head is unremarkable however there is significant atrophy of the mid and distal pancreas. No visible pancreatic ductal dilatation. Spleen: Normal. No splenomegaly. Adrenal glands: Normal. No mass. Kidneys and ureters: Normal. No hydronephrosis. Stomach and bowel: The small bowel loops are not thickened and are not dilated. Colonic diverticulosis but no evidence of diverticulitis. Appendix: The appendix is normal. Intraperitoneal space: Trace perihepatic ascites . Small volume ascites in the paracolic gutters and deep pelvis. Vasculature: Unremarkable. No abdominal aortic aneurysm. Lymph nodes: Unremarkable. No enlarged lymph nodes. Urinary bladder: Small urachus of the urinary bladder Reproductive: Unremarkable as visualized. Bones/joints: Unremarkable. No acute fracture. Soft tissues: Mild anasarca. CT/CT abdomen pelvis wo con [id number] IMPRESSION: 1. Small volume ascites 2. Small bilateral pleural effusions, right larger than left 3. Body wall edema/anasarca 4. Atrophy of the mid body and tail of the pancreas 5. Query gallbladder wall thickening. Please see discussion above. Consider gallbladder ultrasound
[2023-09-18] MEDS: ondansetron 2 mg/ML SDV 2 mL 4 MG IVP (16:26)
[2023-09-18] MEDS: heparin 5,000 unit/mL INJ 1 mL 5000 UNIT SUBCUT (16:28)
[2023-09-18] MEDS: calcium chloride 10% Syr 10 mL 1 GM IVP (16:35)
[2023-09-18 16:59] LABS: Troponin 5 2HR 39.33 ng/L (0-15); Troponin 5 2HR Delta -4.67 ABS# (0-10)
--- NOTE | 2023-09-18 17:21 | USR_ITS ---
PROCEDURE INFORMATION: Exam: US Abdomen, Limited; Right Upper Quadrant Exam date and time: 09/18/2023 5:58 PM Age: 57 years old Clinical indication: Abdominal pain; Epigastric; Additional info: Midepigastric pain TECHNIQUE: Imaging protocol: Real time ultrasound of the abdomen with image documentation. Limited exam focused on the right upper quadrant. COMPARISON: [place] liver [id number] 07/27/2023 12:00 PM FINDINGS: Pleural spaces: A right pleural effusion is noted. Liver: Normal. No masses. Gallbladder: There is mild gallbladder wall thickening but I see no gallstones. Biliary ducts: Normal. No stones. No dilation. Pancreas: Visualized pancreas is unremarkable. Right kidney: Normal. No mass. No hydronephrosis. US/US gall bladder [id number] IMPRESSION: 1. Gallbladder wall thickening of uncertain etiology and significance 2. Right pleural effusion
--- NOTE | 2023-09-18 17:45 | PC.NURSE ---
PATIENT STATED HE DID NOT WANT TO BE HERE AND WANTED TO GO HOME. EDUCATED PATIENT ON HYPERKALEMIA AND RISKS OF LEAVING. PATIENT AGREED TO STAY BUT STATED HE DOES NOT WANT GI COCKTAIL. REFUSED ADMIN.
[2023-09-18 18:07] LABS: Lipase 39 U/L (13-60)
--- NOTE | 2023-09-18 18:09 | PC.NURSE ---
PATIENT WAS ORDERED 2GM CALCIUM CHLORIDE AND WAS RECEIVING FIRST IVP OF 1GM CALCIUM CHLORIDE, PATIENT BEGAN TO FEEL HOT AND STARTED VOMITING. DR. LEACH WAS IN THE ROOM AND ORDERED TO CANCEL 2ND GM OF CALCIUM CHLORIDE PER VERBAL ORDER. DR. LEACH ORDERED 4MG ZOFRAN PER VERBAL ORDER.
[2023-09-18 18:30] LABS: Glucose Point of Care 165 mg/dL (70-110)
[2023-09-18] MEDS: insulin lispro 100 unit/1 mL SUBCUT (18:47)
[2023-09-18] MEDS: pantoprazole 40 mg SDV IVP (18:47)
[2023-09-18 20:13] LABS: Estmated Average Glucose 169; Hemoglobin A1C 7.5 % (4.0-6.0)
[2023-09-18 20:37] LABS: Glucose Point of Care 173 mg/dL (70-110)
[2023-09-18 20:51] LABS: Troponin 5 6HR 39.98 ng/L (0-15)
[2023-09-18 21:02] LABS: Troponin 5 6HR Delta -4.02 ng/L (0-12)
[2023-09-18] MEDS: ticagrelor 90 mg Tablet PO (21:03)
[2023-09-19] VITALS: BP 106/67; PULSE 67; RESP 12; TEMP 36.7; O2SAT 96
[2023-09-19] MEDS: heparin 5,000 unit/mL INJ 1 mL 5000 UNIT SUBCUT (03:32)
[2023-09-19 03:59] VITALS: BP 121/81; PULSE 67; RESP 12; TEMP 36.6; O2SAT 97
[2023-09-19 04:23] LABS: Basophils % 0.4 %; Eosinophils # 0.3 10^3/uL (0.0-0.8); Eosinophils % 5.6 %; Hematocrit 37.6 % (37-53); Lymphocytes # 1.3 10^3/uL (0.8-4.8); Lymphocytes % 24.5 %; Mean Corpuscular HGB Conc 31.9 g/dL (30-55); Mean Corpuscular Hemoglobin 31.8 pg (27-33); Mean Corpuscular Volume 99.7 fl (82-101); Mean Platelet Volume 11.8 fL (7.4-10.4); Monocytes # 0.5 10^3/uL (0.2-0.9); Monocytes % 8.8 %; Neutrophils # 3.11 10^3/uL (1.8-7.7); Neutrophils % 60.5 %; Nucleated Red Blood Cells % 0 %; Platelet Count 167 10^3/cmm (157-399); Red Blood Count 3.77 10^6/uL (3.85-5.65); Red Cell Distribution Width 14.3 % (12.1-15.1); White Blood Count 5.14 10^3/uL (3.29-11.43)
[2023-09-19 04:52] LABS: Alanine Aminotransferase 31 U/L (0-41); Albumin Level 3.1 g/dL (3.5-5.2); Alkaline Phosphatase 100 U/L (40-130); Aspartate Amino Transferase 26 U/L (0-40); Blood Urea Nitrogen 32 mg/dL (6-20); Calcium 8.8 mg/dL (8.5-10.5); Carbon Dioxide 25 mmol/L (22-29); Chloride 104 mmol/L (98-107); Globulin 2.3 g/dL (1.3-4.6); Glomerular Filtration Rate 45.1 mL/min (90-130); Glucose 132 mg/dL (65-115); Magnesium 1.8 mg/dL (1.7-2.3); Osmolality Calculated 293 mOsm/kg (285-295); Sodium 137 mmol/L (136-145); Total Bilirubin 0.6 mg/dL (0.15-1.2); Total Protein 5.4 g/dL (6.6-8.7)
[2023-09-19 05:00] LABS: Creatinine Clr Calc Pharmacy 52.0215
[2023-09-19 06:25] LABS: Glucose Point of Care 106 mg/dL (70-110)
[2023-09-19 07:03] VITALS: BP 137/92; PULSE 70; RESP 16; TEMP 36.9; O2SAT 96
[2023-09-19] MEDS: atorvastatin 40 mg Tablet PO (07:44)
[2023-09-19] MEDS: aspirin 81 mg EC Tablet PO (07:44)
[2023-09-19] MEDS: ticagrelor 90 mg Tablet PO (07:45)
--- NOTE | 2023-09-19 07:47 | PC.NURSE ---
Patient refusing to take protonix, bumex this morning. He states, I hate to take any of them . Patient just wants his d/c orders this morning.
--- NOTE | 2023-09-19 09:09 | PC.NURSE ---
Patient is refusing to take some meds and hating on the others. Will not do gastric study this morning. Want breakfast and discharged. Informed Dr Noland. Waiting for response.
--- NOTE | 2023-09-19 09:43 | PC.CHAP ---
Pastoral Care Encounter/Spiritual Assessment Type of Contact [] Declined small business consultant visit [] Patient/Family/Request visit [] Outpatient visit [] Follow-up visit [] Physician referral [] Code/Alert [x] Routine visit [] Staff referral [] Actively dying [] Patient sleeping [x] Family support [] [] Out of room [] Palliative care [] [] Receiving care in room [] Pre-surgical visit [] Trauma [] Long length of stay [] ICU visit [] Other: Relational/Emotional Strength [x] Patient feels connected with others/family/visitors/staff [] Distress [] Loneliness/isolation [] Abandonment Spirituality of Patient [x] Person of Telma [] Attends Denominational of their Telma [x] Believes in Prayer [] Reads Bible or Alevism materials [] There are Spiritual issues to be addressed Corporate Communications Specialist Interventions [x] Prayer [x] Active listening [] Non-anxious presence [x] Spiritual/emotional support [] Crisis/trauma care [] Spiritual counseling [] Bereavement support [] Provided bereavement packet [] Provided Bible/devotional materials [] Provided toy/stuffed animal, coloring book to patient or family member [] Provided Communion [] Anointing/[place] [] Salvation [x] Completed spiritual assessment [] Other: Impact on Illness or Injury [] Angry [] Fearful [] Anxious [] Often cries [] Exhaustion [] Unable to work [] Unable to attend denominational [] Unable to walk/stand [] Unable to read [] Unable to drive [] Unable to eat/drink [] Unable to sleep [] Unable to be with family [] Patient intubated [] Other: Summary Time spent with patient 5 min
--- NOTE | 2023-09-19 10:51 | PC.NURSE ---
Patient remains agitated at this time. Insisting on going home. Informed patient we are waiting for orders. Dr Celis is aware.
[2023-09-19 11:18] VITALS: BP 136/89; PULSE 81; RESP 16; TEMP 36.6; O2SAT 94
--- NOTE | 2023-09-19 11:40 | P.DS_ITS ---
Discharge Providers Date of Admission: 09/18/23 16:08 Date of Discharge: September 19, 2023 Attending Provider at Admission: Huong Celis MD Attending Provider at Discharge: Huong Celis MD Primary Care Provider: Bret Gale MD Diagnoses at Discharge Discharge Diagnosis (1) Epigastric abdominal pain: Status: Resolved (2) Hypertension: Status: Acute Qualifiers: Hypertension type: primary hypertension Qualified Code(s): I10 - Essential (primary) hypertension (3) Ischemic cardiomyopathy: Status: Acute (4) Congestive heart failure: Status: Acute Qualifiers: Heart failure chronicity: chronic Heart failure type: systolic Qualified Code(s): I50.22 - Chronic systolic (congestive) heart failure Permanent problem details: Last ejection fraction 20-25% (5) Acute on chronic systolic heart failure: Status: Resolved (6) Diabetes mellitus: Status: Acute Qualifiers: Diabetes mellitus complication status: without complication Diabetes mellitus senior care insulin use: without senior care use 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 Initially was placed on Lasix 40 IV twice daily. Patient diuresed quite well by next morning of hospitalization however declined to stay further in the hospital. He stated that he can double up his home Lasix dose and he will be seeing cardiology this upcoming Monday anyway. Family ember at bedside. Patient was counseled that the bioavailability of IV Lasix is better than oral when patient is fluid overloaded. His abdomen CT did show good edema. However patient stated he wanted to go home. Of note there was gallbladder thickening on his abdomen CT. Ultrasound gallbladder was done which showed gallbladder wall thickening of uncertain etiology and significance. There were no gallstones however. Patient to follow-up outpatient for this with his PCP. A copy of this discharge summary will be sent to his primary care doctor. Patient back to his baseline currently on room air. Initially upon admission he also complained of dry heaving and vomiting. Gastric emptying study was ordered which patient declined to have done during hospitalization. Of note he has refused LifeVest in the past and refused it again at this time. He stated he is very active and he is well aware of the risk for cardiac arrest. At this point patient will be sent home as per his wishes. He is following up with cardiology this upcoming Monday. Patient encouraged to keep that appointment. At discharge I did go up on his home Lasix to 40 twice daily. Secondary to hyperkalemia spironolactone was stopped. He was given a repeat BMP prescription to do in next 2 to 3 days. Physical Exam Narrative: Awake and alert GCS 15 no active chest pain sitting up in bed, eating a sandwich stating i feel fine and want to go home No active shortness of breath Hemodynamic stable clear to ausculation b/l trace b/l le edema GCS 15 Nonfocal neuroexam Discharge Data Studies Completed and Pending Completed Studies During Hospitalization Category Date Time Status CT abdomen pelvis wo con [id number] Stat Cat Scan 09/18/23 16:22 Completed XR chest 1V portable [id number] Urgent Exams 09/18/23 12:12 Completed US gall bladder [id number] Stat Ultrasound 09/18/23 17:21 Completed Radiology Impressions Chest X-Ray 09/18/23 12:12 IMPRESSION: Stable borderline cardiomegaly, otherwise clear chest Abdomen/Pelvis CT 09/18/23 16:22 IMPRESSION: 1. Small volume ascites 2. Small bilateral pleural effusions, right larger than left 3. Body wall edema/anasarca 4. Atrophy of the mid body and tail of the pancreas 5. Query gallbladder wall thickening. Please see discussion above. Consider gallbladder ultrasound Gallbladder Ultrasound 09/18/23 17:21 IMPRESSION: 1. Gallbladder wall thickening of uncertain etiology and significance 2. Right pleural effusion Laboratory Results WBC 5.14 10^3/uL (3.29-11.43) 09/19/23 03:25 RBC 3.77 10^6/uL (3.85-5.65) L 09/19/23 03:25 Hgb 12.00 g/dL (11.27-16.99) 09/19/23 03:25 Hct 37.6 % (37-53) 09/19/23 03:25 MCV 99.7 fl (82-101) 09/19/23 03:25 MCH 31.8 pg (27-33) 09/19/23 03:25 MCHC 31.9 g/dL (30-55) 09/19/23 03:25 RDW 14.3 % (12.1-15.1) 09/19/23 03:25 Plt Count 167 10^3/cmm (157-399) D 09/19/23 03:25 MPV 11.8 fL (7.4-10.4) H 09/19/23 03:25 Neut % (Auto) 60.5 % 09/19/23 03:25 Lymph % (Auto) 24.5 % 09/19/23 03:25 [place] % (Auto) 8.8 % 09/19/23 03:25 Eos % (Auto) 5.6 % 09/19/23 03:25 Baso % (Auto) 0.4 % 09/19/23 03:25 Neut # (Auto) 3.11 10^3/uL (1.8-7.7) 09/19/23 03:25 Lymph # (Auto) 1.3 10^3/uL (0.8-4.8) 09/19/23 03:25 [place] # (Auto) 0.5 10^3/uL (0.2-0.9) 09/19/23 03:25 Eos # (Auto) 0.3 10^3/uL (0.0-0.8) 09/19/23 03:25 Baso # (Auto) 0.0 10^3/uL (0.0-0.1) 09/19/23 03:25 Nucleated RBC % (auto) 0 % 09/19/23 03:25 Nucleated RBCs # 0.0 /100WBC 09/19/23 03:25 Sodium 137 mmol/L (136-145) 09/19/23 03:25 Potassium 5.0 mmol/L (3.5-5.1) 09/19/23 03:25 Chloride 104 mmol/L (98-107) 09/19/23 03:25 Carbon Dioxide 25 mmol/L (22-29) 09/19/23 03:25 Anion Gap 13.0 (5-19) 09/19/23 03:25 BUN 32 mg/dL (6-20) H 09/19/23 03:25 Creatinine 1.6 mg/dL (0.7-1.2) H 09/19/23 03:25 GFR Calculation 45.1 mL/min (90-130) L 09/19/23 03:25 Glucose 132 mg/dL (65-115) H 09/19/23 03:25 POC Glucose 106 mg/dL (70-110) 09/19/23 06:01 Estimat Average Glucose 169 09/18/23 14:08 Hemoglobin A1c 7.5 % (4.0-6.0) H 09/18/23 14:08 Calculated Osmolality 293 mOsm/kg (285-295) 09/19/23 03:25 Calcium 8.8 mg/dL (8.5-10.5) 09/19/23 03:25 Magnesium 1.8 mg/dL (1.7-2.3) 09/19/23 03:25 Total Bilirubin 0.6 mg/dL (0.15-1.2) 09/19/23 03:25 AST 26 U/L (0-40) 09/19/23 03:25 ALT 31 U/L (0-41) 09/19/23 03:25 Alkaline Phosphatase 100 U/L (40-130) 09/19/23 03:25 Troponin T Baseline 44 ng/L (0-15) H 09/18/23 14:08 Troponin T 120 Minute 39.33 ng/L (0-15) H 09/18/23 16:12 Delta Troponin T -4.67 ABS# (0-10) L 09/18/23 16:12 Troponin T Hi Sens 6Hr 39.98 ng/L (0-15) H 09/18/23 20:13 Troponin T Hi Sens 6Hr Delta -4.02 ng/L (0-12) L 09/18/23 20:13 NT-Pro-B Natriuret Pep 31272 pg/mL (0-125) H 09/18/23 14:08 Total Protein 5.4 g/dL (6.6-8.7) L D 09/19/23 03:25 Albumin 3.1 g/dL (3.5-5.2) L 09/19/23 03:25 Globulin 2.3 g/dL (1.3-4.6) 09/19/23 03:25 Lipase 39 U/L (13-60) 09/18/23 14:08 Vitals Last Vital Signs Temp 97.9 F 09/19/23 11:18 Pulse 81 09/19/23 11:18 Resp 16 09/19/23 11:18 BP 136/89 09/19/23 11:18 Pulse Ox 94 09/19/23 11:18 O2 Del Method Room Air 09/19/23 11:18 O2 Flow Rate 96 09/19/23 09:32 Discharge Plan Discharge Patient Disposition: Home Condition: Stable Prescriptions: Continued diphenoxylate-atropine [Lomotil] 2.5-0.025 mg tablet 1 tab PO DAILY PRN (Reason: loose stools) Men's Multivitamin Gummies 200 mcg tablet,chewable 1 tab PO DAILY sacubitril-valsartan 49-51 mg tablet 0.5 tab PO BID insulin lispro [Humalog KwikPen Insulin] 100 unit/mL insulin pen 4 unit SUBCUT TID Rx Instructions: Sliding scale Probiotic Gummies 1 tab PO DAILY atorvastatin 40 mg Tablet 40 mg PO DAILY Qty: 30 0RF aspirin 81 mg tablet,delayed release (DR/EC) 81 mg PO DAILY Qty: 90 3RF Hold Instructions: stroke atenolol 25 mg tablet 25 mg PO DAILY fluticasone propionate 50 mcg/actuation spray,suspension 2 mcg INTRANASAL DAILY loratadine [Claritin] 10 mg Tablet 10 mg PO DAILY insulin degludec [Tresiba FlexTouch U-100] 100 unit/mL (3 mL) insulin pen 4 unit SUBCUT DAILY dapagliflozin propanediol [Farxiga] 10 mg Tablet 10 mg PO QAM Brilinta 90 mg Tablet 90 mg PO BID Qty: 180 0RF Changed furosemide 40 mg tablet 40 mg PO BID Qty: 30 0RF Held spironolactone 25 mg tablet 25 mg PO DAILY Qty: 30 3RF Hold Instructions: see cardiology Discharge Orders: Discharge Order (Routine); Ordered 09/19/23 Ordered By: Huong Celis Other Ambulatory Orders: Basic Metabolic Panel (Routine) Timeframe: 3 Days Facility: [facility] - Location: Lab - Main Lab Ordered By: Huong Celis Referrals: Bret Gale MD [Primary Care Provider] - 09/22/23 8:15 am Aaron Reilly MD [Physician] - 1 month (During your appointment with Vanna Mckeon you will be schedule for an follow-up with Dr. Reilly within 1 month. Thank you! ) Vanna Mckeon FNP [Nurse Practitioner] - 09/28/23 1:00 pm Discharge Diet: Cardiac Discharge Activity: Resume usual activity Patient Instructions: Acute Kidney Injury (DC), Chronic Kidney Disease (DC), Hyperkalemia (DC), CHF Stoplight, Opioid Safety, Pain Management, Stroke Stoplight Discharge Attestations Time Spent in Discharge Care*: greater than 30 min Quality Metrics Clinical Quality Measures [ No reported AMI, CVA or VTE this stay] Coding Level of Care Code Acute Code for Chg Fwd Diagnoses Epigastric abdominal pain R10.13 Primary hypertension I10 Hypertension type: primary hypertension Ischemic cardiomyopathy I25.5 Chronic systolic congestive heart failure I50.22 Heart failure chronicity: chronic Heart failure type: systolic Acute on chronic systolic heart failure I50.23 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
[2023-09-19 11:58] VITALS: BP 136/89; PULSE 81; RESP 16; TEMP 36.6; O2SAT 94
--- NOTE | 2023-09-19 12:11 | PC.NURSE ---
patient discharged to home. Spouse at bedside. Instructed patient on medication changes and follow up appointments. Both verbalized complete understanding. Patient taken by wheelchair to private vehicle.
== END 2023-09-19 12:11 | disposition home or self-care (01) ==
LOC: ER 15:53 → CSU 21:07
PROVIDERS: Internal Medicine; Physician Assistant; Admitting Provider Internal Medicine; Emergency Provider Family Medicine; PCP Family Medicine; Visit Provider Internal Medicine
DX: R10.13 Epigastric pain (principal); E11.22 Type 2 diabetes mellitus with diabetic chronic kidney disease; I13.0 Hypertensive heart and chronic kidney disease with heart failure and stage 1 through stage 4 chronic kidney disease, or unspecified chronic kidney disease; N18.31 Chronic kidney disease, stage 3a; I25.5 Ischemic cardiomyopathy; I50.23 Acute on chronic systolic (congestive) heart failure; I50.22 Chronic systolic (congestive) heart failure; E09.9 Drug or chemical induced diabetes mellitus without complications; N17.9 Acute kidney failure, unspecified; E87.5 Hyperkalemia; J90 Pleural effusion, not elsewhere classified; Z79.4 Long term (current) use of insulin; E78.5 Hyperlipidemia, unspecified; I25.2 Old myocardial infarction; I25.10 Atherosclerotic heart disease of native coronary artery without angina pectoris; Z95.5 Presence of coronary angioplasty implant and graft
CPT/HCPCS: 36415; 36416; 71045; 74176; 76705; 80053; 82962; 83036; 83690; 83735; 83880; 84484; 85025; 93005; 94664; 96372; 96374; 96375; 96376; 99285; 99291; 99292; C9113; G0378; J1644; J1815; J1940; J2405; J3490

== ENCOUNTER → 2023-09-28 13:41 | Outpatient (BNVA) | payer BC, SELFPAY | PROVIDERS: PCP Family Medicine; Visit Provider Nurse Practitioner Family | DX: I25.5 Ischemic cardiomyopathy (principal); I50.22 Chronic systolic (congestive) heart failure; Z09 Encounter for follow-up examination after completed treatment for conditions other than malignant neoplasm; I10 Essential (primary) hypertension | CPT/HCPCS: 36415; 80048; 83880 ==

== ENCOUNTER 2023-10-27 08:47 | Outpatient (CLI) | payer BC, SELFPAY ==
--- NOTE | 2023-10-27 09:00 | USCV_ITS ---
Sebastien Martinez Age: 57 Gender: M : 1965 Exam Date: 10/27/2023 09:17 Ordering Phys: Vanna Mckeon Technologist: Kenyon Kwok Exam Location: [facility] Indication: icd determination BP: 132 / 84 HR: Rhythm: Sinus Technical Quality: Adequate MEASUREMENTS (Male / Female) Normal Values 2D ECHO LV Diastolic Diameter PLAX 6.3 cm 4.2 - 5.9 / 3.9 - 5.3 cm IVS Diastolic Thickness 0.7 cm 0.6 - 1.0 / 0.6 - 0.9 cm IVS Systolic Thickness 0.9 cm LVPW Diastolic Thickness 1.2 cm 0.6 - 1.0 / 0.6 - 0.9 cm LVPW Systolic Thickness 1.5 cm LVOT Diameter 2.0 cm LV Ejection Fraction 2D Teich 26.3 % LV Ejection Fraction MOD 2C 20.0 % LV Ejection Fraction 2C AL 19.6 % LA Diameter 4.2 cm RA Systolic Volume 4C AL 41.9 ml RA Systolic Volume 4C MOD 41.1 ml LA Sys Volume AL 57.9 cm cubed LA Sys Volume Index AL 31.4 cm cubed/m squared Aorta at Sinotubular Diameter 2.6 cm IVC Diameter 1.7 cm M-MODE LA Ao Ratio MM 1.6 AV Cusp Separation MM 2.0 cm FINDINGS Left Ventricle This is a 2-dimensional study only. No M-mode or Doppler examinations were obtained. The ventricle is moderately enlarged and there is generalized thinning of the myocardium. There are regional wall motion disturbances. The apical septum moves nearly normally as does the inferior base. The apex appears to exhibit mild to moderate hypokinesis. The anterior wall, mid and basilar septum, lateral, inferior and posterior daily all reveal severe hypokinesis. This suggest multivessel coronary artery disease. The overall ejection fraction is about 20%. Diastolic function was not evaluated. Right Ventricle Normal right ventricular size and systolic function. Right Atrium Mildly increased right atrial size. Left Atrium Mildly increased left atrial size. Mitral Valve Mitral valve not well visualized. No mitral valve stenosis. Aortic Valve Structurally normal trileaflet aortic valve. No aortic valve stenosis. Tricuspid Valve Structurally normal tricuspid valve. Pulmonic Valve Pulmonic valve not well visualized. Pericardium There is a small hemodynamically insignificant pericardial effusion. Aorta Normal ascending aorta dimension. IVC Inferior vena cava not visualized. CONCLUSIONS This is a 2-dimensional study only. No M-mode or Doppler examinations were obtained. The ventricle is moderately enlarged and there is generalized thinning of the myocardium. There are regional wall motion disturbances. The apical septum moves nearly normally as does the inferior base. The apex appears to exhibit mild to moderate hypokinesis. The anterior wall, mid and basilar septum, lateral, inferior and posterior daily all reveal severe hypokinesis. This suggest multivessel coronary artery disease. The overall ejection fraction is about 20%. Diastolic function was not evaluated. Mildly increased right atrial size. Mildly increased left atrial size. There is a small hemodynamically insignificant pericardial effusion. Previous echo was about 3 months ago. There is probably no change. That echo suggested global hypokinesis however with the technical inconsistencies there probably is not a significant difference. The ejection fraction is the same. Dr. Aaron Reilly MD (Electronically Signed) Final Date: 28 October 2023 12:29 S
== END 2023-10-27 08:48 | disposition home or self-care (01) ==
LOC: RAD 08:47
PROVIDERS: PCP Family Medicine; Visit Provider Nurse Practitioner Family
DX: I25.5 Ischemic cardiomyopathy (principal); I50.22 Chronic systolic (congestive) heart failure; I51.7 Cardiomegaly; I51.89 Other ill-defined heart diseases
CPT/HCPCS: 93308

== ENCOUNTER 2024-07-21 15:49 | Observation (INO) | payer BC, SELFPAY ==
[2024-07-21 15:51] VITALS: BP 146/95; PULSE 123; RESP 18; TEMP 36.6; O2SAT 96; BMI 23.6
--- NOTE | 2024-07-21 15:56 | ECG_ITS ---
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1965 Requested By: Jocelyn Bermeo Order Number: [id number] Albina MD: CORTNEY CH Measurements Intervals [employer] Rate: 124 P: 77 WA: 160 QRS: -37 QRSD: 82 T: 92 QT: 308 QTc: 444 Interpretive Statements SINUS TACHYCARDIA LEFT AXIS DEVIATION [QRS AXIS < -30] SEPTAL MYOCARDIAL INFARCTION , PROBABLY OLD [40+ ms Q WAVE IN V1/V2] Compared to ECG 09/18/2023 14:23:41 Left-axis deviation now present Sinus rhythm no longer present Atrial abnormality no longer present T-wave abnormality no longer present Myocardial infarct finding still present Electronically Signed On 07-22-2024 18:08:27 CDT by CORTNEY CH [email or web address]
--- NOTE | 2024-07-21 16:01 | XRR_ITS ---
PROCEDURE INFORMATION: Exam: XR Chest Exam date and time: 07/21/2024 4:35 PM Age: 58 years old Clinical indication: Shortness of breath; SOB; Cough; Additional info: Cough; SOB TECHNIQUE: Imaging protocol: Radiologic exam of the chest. Views: 1 view. COMPARISON: CR XR chest 1V portable [id number] 09/18/2023 12:21 PM FINDINGS: Lungs: Faint patchy right infrahilar airspace opacities. The left lung is clear. Pleural spaces: Unremarkable. No pleural effusion. No pneumothorax. Heart/Mediastinum: Stable cardiomediastinal silhouette. Bones/joints: Unremarkable. XR/XR chest 1V portable [id number] IMPRESSION: Faint right infrahilar airspace opacities may represent infiltrate in the correct clinical setting.
--- NOTE | 2024-07-21 16:12 | W.ED.SOB ---
HPI - SOB/Dyspnea General: Chief Complaint: Shortness of Breath/Dyspnea Stated Complaint: sob, congestion Time Seen by Provider: 07/21/24 16:00 Source: patient and family Mode of arrival: wheelchair Limitations: no limitations History of Present Illness: HPI Narrative: Patient is a 58-year-old male with a significant past medical history including CAD, ischemic cardiomyopathy, CHF with an EF of 20% (last echo Jan 2024 at [facility]) here for complaints of dyspnea, cough, congestion. States he had influenza A about a month ago and since has had cough/congestion. He has been on multiple rounds of antibiotics including Doxycycline, Levaquin, and currently Augmentin/Prednisone without relief. He takes Bumex twice daily. States his cardiology team is at [facility]. Has been recommended to wear LifeVest but patient declines. They have talked about an internal defibrillator. MD elicited complaint: shortness of breath and cough Pertinent past history: congestive heart failure Onset (ago): week(s) Context: recent illness (flu A one month ago) Timing: constant Severity: moderate Exacerbating factors: lying flat, exertion and coughing Relieving factors: nothing Known history of: congestive heart failure Associated symptoms: Reports chest congestion; Deny abdominal pain, chest pain, dizziness, fever(s), palpitations or syncope Treatment prior to arrival: none Related Data Home Medications ?Medication ?Instructions ?Recorded ?Confirmed diphenoxylate-atropine 2.5 1 tab PO DAILY PRN loose stools 11/10/22 07/21/24 mg-0.025 mg tablet (Lomotil) insulin lispro 100 unit/mL 4 unit SUBCUT TID 11/10/22 07/21/24 subcutaneous pen (Humalog KwikPen (U-100) Insulin) multivitamin with minerals-folic 1 tab PO DAILY 11/10/22 07/21/24 acid 200 mcg chewable tablet (Men's Multivitamin Gummies) dapagliflozin propanediol 10 mg 10 mg PO QAM 08/01/23 07/21/24 tablet (Farxiga) fluticasone propionate 50 2 mcg intranasal DAILY 08/01/23 07/21/24 mcg/actuation nasal spray,suspension insulin degludec 100 unit/mL (3 4 unit SUBCUT DAILY 08/01/23 07/21/24 mL) subcutaneous pen (Tresiba FlexTouch U-100 insulin) Vitamin B-12 Gummie 1 gummy PO DAILY 10/09/23 07/21/24 amoxicillin 875 mg-potassium 1 tab PO BID 07/21/24 07/21/24 clavulanate 125 mg tablet benzonatate 200 mg capsule 200 mg PO TID 07/21/24 07/21/24 bumetanide 2 mg tablet 2 mg PO BID 07/21/24 07/21/24 carvedilol 3.125 mg tablet 3.125 mg PO BID 07/21/24 07/21/24 coenzyme Q10 100 mg capsule 100 mg PO DAILY 07/21/24 07/21/24 (CoQ-10) escitalopram oxalate 20 mg tablet 20 mg PO DAILY 07/21/24 07/21/24 metolazone 5 mg tablet See Rx Instructions .Route .COMPLEX 07/21/24 07/21/24 sacubitril 49 mg-valsartan 51 mg 1 tab PO DAILY 07/21/24 07/21/24 tablet (Entresto) Previous Rx's ?Medication ?Instructions ?Recorded aspirin 81 mg tablet,delayed 81 mg PO DAILY #90 tabs 07/07/21 release ticagrelor 90 mg tablet (Brilinta) 90 mg PO BID #180 tabs 10/09/23 Allergies Allergy/AdvReac Type Severity Reaction Status Date / Time Opioids - Morphine Analogues AdvReac Mild Unknown Verified 07/21/24 15:56 Review of Systems Const: Denies: fever(s), chills, body aches, fatigue or malaise Card: Reports: edema, swelling of feet/ankles and dyspnea on exertion; Denies: chest pain, palpitations, irregular heart rhythm, syncope or pre-syncope Resp: Reports: dyspnea, productive cough and chest congestion GI: Denies: abdominal pain Musc: Reports: extremity swelling (chronic) Skin/Breast: Denies: rash Neuro: Denies: headache(s), numbness in extremities, weakness in extremities, sensory changes or dizziness PFS ED PFSH: Medical History Acute right arterial ischemic stroke, middle cerebral artery (MCA) CHF (congestive heart failure) Stroke Dyslipidemia Congestive heart failure Last ejection fraction 20-25% CAD (coronary artery disease) Has had stents in RCA, LAD, circumflex with last procedure being angioplasty LAD stent 2018 Ischemic cardiomyopathy History of heart attack Diabetes mellitus Palmar fascial fibromatosis [dupuytren] Surgical History Hx of shoulder surgery History of eye surgery History of coronary angiogram Family History Other CAD (coronary artery disease) Diabetes Social History Smoking and tobacco/nicotine status: never used tobacco/nicotine Alcohol intake: never Substance/Drug Use: never Physical Exam Const: COMMON NORMALS: patient oriented x3, no limitations, alert and well nourished GENERAL APPEARANCE: cooperative and ill appearing ORIENTATION/CONSCIOUSNESS: Yes awake, Yes oriented to person, Yes oriented to place and Yes oriented to time OTHER: pale HENMT: COMMON NORMALS: normocephalic and atraumatic HEAD & SCALP: normal to inspection, normocephalic and atraumatic Neck/C-Spine: COMMON NORMALS: no lymphadenopathy and no meningeal signs Chest: COMMONS NORMALS: normal inspection of the chest and normal palpation of entire chest wall Resp: COMMON NORMALS: normal respiratory effort AUSCULTATION: crackles Cardio: COMMON NORMALS: regular rhythm RATE: tachycardic RHYTHM: regular rhythm GI: COMMON NORMALS: Normal to inspection, nondistended, normoactive bowel sounds present, Soft to palpation and non-tender PALPATION: Yes Soft to palpation Extremity: COMMON NORMALS: no calf tenderness NARRATIVE EXTREMITY EXAM: bilateral symmetrical pitting edema Neuro: COMMON NORMALS: patient oriented x3, moves all extremities, no focal motor deficits and no sensory deficits noted SENSORIUM/ORIENTATION: Yes alert, Yes oriented to person, Yes oriented to place and Yes oriented to time MENINGEAL SIGNS: Yes no meningeal signs Course Consultations: Consultation #1: Dr. Douglas-admit to obs Vital Signs: Vital signs: Vital Signs Temperature 97.9 F 07/21/24 15:51 Pulse Rate 123 H 07/21/24 15:51 Respiratory Rate 18 07/21/24 15:51 Blood Pressure 146/95 07/21/24 15:51 Pulse Oximetry 96 07/21/24 15:51 MDM - SOB/Dyspnea Medical Decision Making Patient clinically appears fluid overloaded. He was given 60mg IV Lasix. Tachycardic. BNP over 17,000. This was roughly 10,000 most recently back in March at [facility]. Spoke to hospitalist Dr. Douglas who will admit patient to obs for CHF exacerbation/diuresis. Dr. Bo will place admit orders Medical Records I reviewed the patient's medical records. Lab Data I reviewed the patient's lab results. 07/21/24 16:26 07/21/24 16: Labs/Radiology: Laboratory Results WBC 6.09 10^3/uL (3.29-11.43) 07/21/24 16: RBC 5.17 10^6/uL (3.85-5.65) 07/21/24 16: Hgb 16.40 g/dL (11.27-16.99) 07/21/24 16: Hct 51.1 % (37-53) 07/21/24 16: MCV 98.8 fl (82-101) 07/21/24 16: MCH 31.7 pg (27-33) 07/21/24 16: MCHC 32.1 g/dL (30-55) 07/21/24 16: RDW 14.6 % (12.1-15.1) 07/21/24 16: Plt Count 195 10^3/cmm (157-399) 07/21/24 16: MPV 10.2 fL (7.4-10.4) 07/21/24 16: Neut % (Auto) 79.9 % 07/21/24 16: Lymph % (Auto) 13.0 % 07/21/24 16: [place] % (Auto) 5.9 % 07/21/24 16: Eos % (Auto) 0.2 % 07/21/24 16: Baso % (Auto) 0.8 % 07/21/24: Neut # (Auto) 4.87 10^3/uL (1.8-7.7) 07/21/24 16: Lymph # (Auto) 0.8 10^3/uL (0.8-4.8) 07/21/24 16: [place] # (Auto) 0.4 10^3/uL (0.2-0.9) 07/21/24 16:26 Eos # (Auto) 0.0 10^3/uL (0.0-0.8) 07/21/24 16:26 Baso # (Auto) 0.1 10^3/uL (0.0-0.1) 07/21/24 16:26 Nucleated RBC % (auto) 0 % 07/21/24 16: Nucleated RBCs # 0.0 /100WBC 07/21/24 16: Sodium 128 mmol/L (136-145) L 07/21/24 16: Potassium 4.7 mmol/L (3.5-5.1) 07/21/24 16: Chloride 93 mmol/L (98-107) L 07/21/24 16: Carbon Dioxide 22 mmol/L (22-29) 07/21/24 16: Anion Gap 17.7 (5-19) 07/21/24 16: BUN 47 mg/dL (6-20) H 07/21/24 16: Creatinine 1.6 mg/dL (0.7-1.2) H 07/21/24 16: GFR Calculation 44.9 mL/min (90-130) L 07/21/24 16: Glucose 155 mg/dL (65-115) H 07/21/24 16: Calculated Osmolality 281 mOsm/kg (285-295) L 07/21/24 16: Calcium 8.9 mg/dL (8.5-10.5) 07/21/24 16: Total Bilirubin 1.0 mg/dL (0.15-1.2) 07/21/24 16: AST 45 U/L (0-40) H 07/21/24 16: ALT 29 U/L (0-41) 07/21/24 16: Alkaline Phosphatase 332 U/L (40-130) H 07/21/24 16: Troponin T Baseline 74 ng/L (0-15) H 07/21/24 16: NT-Pro-B Natriuret Pep 86491 pg/mL (0-125) H 07/21/24 16: Total Protein 7.7 g/dL (6.6-8.7) 07/21/24 16: Albumin 3.1 g/dL (3.5-5.2) L 03/16/25 16:26 Globulin 4.6 g/dL (1.3-4.6) 07/21/24 16:26 XR interpretation done by ED provider, pending radiology final review Discharge Plan Discharge Patient Disposition: Placed in Observation Clinical Impression: Acute exacerbation of CHF (congestive heart failure) Coding Level of Care Code ED Director Of Strategic Communications for 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
[2024-07-21 16:31] LABS: Basophils # 0.1 10^3/uL (0.0-0.1); Basophils % 0.8 %; Eosinophils % 0.2 %; Hematocrit 51.1 % (37-53); Lymphocytes # 0.8 10^3/uL (0.8-4.8); Mean Corpuscular HGB Conc 32.1 g/dL (30-55); Mean Corpuscular Hemoglobin 31.7 pg (27-33); Mean Corpuscular Volume 98.8 fl (82-101); Mean Platelet Volume 10.2 fL (7.4-10.4); Monocytes # 0.4 10^3/uL (0.2-0.9); Monocytes % 5.9 %; Neutrophils # 4.87 10^3/uL (1.8-7.7); Neutrophils % 79.9 %; Nucleated Red Blood Cells % 0 %; Platelet Count 195 10^3/cmm (157-399); Red Blood Count 5.17 10^6/uL (3.85-5.65); Red Cell Distribution Width 14.6 % (12.1-15.1); White Blood Count 6.09 10^3/uL (3.29-11.43)
[2024-07-21 16:57] LABS: Troponin(5th) Baseline 74 ng/L (0-15)
[2024-07-21 17:02] LABS: Alanine Aminotransferase 29 U/L (0-41); Albumin Level 3.1 g/dL (3.5-5.2); Alkaline Phosphatase 332 U/L (40-130); Anion Gap 17.7 (5-19); Aspartate Amino Transferase 45 U/L (0-40); Blood Urea Nitrogen 47 mg/dL (6-20); Calcium 8.9 mg/dL (8.5-10.5); Carbon Dioxide 22 mmol/L (22-29); Chloride 93 mmol/L (98-107); Globulin 4.6 g/dL (1.3-4.6); Glomerular Filtration Rate 44.9 mL/min (90-130); Glucose 155 mg/dL (65-115); NT Pro B Type Natriuretic Pept 17916 pg/mL (0-125); Osmolality Calculated 281 mOsm/kg (285-295); Potassium 4.7 mmol/L (3.5-5.1); Sodium 128 mmol/L (136-145); Total Protein 7.7 g/dL (6.6-8.7)
--- NOTE | 2024-07-21 17:35 | PM.HP ---
Providers/Chief Complaint Primary Care Provider: Bret Gale MD Chief Complaint: sob, congestion History of Present Illness Sebastien Martinez is a 58 year old male with a past medical history significant for heart failure with reduced ejection fraction of 20%, type 2 diabetes mellitus, coronary artery disease, and multiple other comorbidities who presents emergency department with cough. Patient reports symptoms started about a month ago around the time he had influenza. Since that time he has had a persistent wet cough. Describes as dry. Denies alleviating or aggravating factors. Endorses associated orthopnea. He denies any shortness of breath. Reports his dry weight is usually around 160 pounds at home. He weighs daily. Reports chronic lower extremity edema with today's edema close to his normal baseline. He follows with [facility] cardiology group. They are planning on repeat surveillance echocardiography soon. They have follow-up with his CHF specialist in upcoming weeks. He notes that he does not want a be in the hospital very long this day. Partner is bedside and provides majority the history. Review of Systems Narrative: A complete review of systems was obtained and is negative except as stated in HPI. Medications/Allergies Home Medications ?Medication ?Instructions ?Recorded ?Confirmed ?Last Taken ?Type aspirin 81 mg tablet,delayed 81 mg PO DAILY #90 tabs 07/07/21 07/21/24 07/21/24 Rx release diphenoxylate-atropine 2.5 1 tab PO DAILY PRN loose stools 11/10/22 07/21/24 Unknown History mg-0.025 mg tablet (Lomotil) insulin lispro 100 unit/mL 4 unit SUBCUT TID 11/10/22 07/21/24 07/20/24 History subcutaneous pen (Humalog KwikPen (U-100) Insulin) multivitamin with minerals-folic 1 tab PO DAILY 11/10/22 07/21/24 07/21/24 History acid 200 mcg chewable tablet (Men's Multivitamin Gummies) dapagliflozin propanediol 10 mg 10 mg PO QAM 08/01/23 07/21/24 07/21/24 History tablet (Farxiga) fluticasone propionate 50 2 mcg intranasal DAILY 08/01/23 07/21/24 07/31/23 History mcg/actuation nasal spray,suspension insulin degludec 100 unit/mL (3 4 unit SUBCUT DAILY 08/01/23 07/21/24 07/31/23 History mL) subcutaneous pen (Tresiba FlexTouch U-100 insulin) Vitamin B-12 Gummie 1 gummy PO DAILY 10/09/23 07/21/24 07/21/24 History ticagrelor 90 mg tablet (Brilinta) 90 mg PO BID #180 tabs 10/09/23 07/21/24 07/21/24 Rx amoxicillin 875 mg-potassium 1 tab PO BID 07/21/24 07/21/24 07/21/24 History clavulanate 125 mg tablet benzonatate 200 mg capsule 200 mg PO TID 07/21/24 07/21/24 07/21/24 History bumetanide 2 mg tablet 2 mg PO BID 07/21/24 07/21/24 07/21/24 History carvedilol 3.125 mg tablet 3.125 mg PO BID 07/21/24 07/21/24 07/21/24 History coenzyme Q10 100 mg capsule 100 mg PO DAILY 07/21/24 07/21/24 07/21/24 History (CoQ-10) escitalopram oxalate 20 mg tablet 20 mg PO DAILY 07/21/24 07/21/24 07/21/24 History metolazone 5 mg tablet See Rx Instructions .Route .COMPLEX 07/21/24 07/21/24 Unknown History sacubitril 49 mg-valsartan 51 mg 1 tab PO DAILY 07/21/24 07/21/24 07/21/24 History tablet (Entresto) Allergies Allergy/AdvReac Type Severity Reaction Status Date / Time Opioids - Morphine Analogues AdvReac Mild Unknown Verified 07/21/24 15:56 PFSH Acute PFSH: Medical History Acute right arterial ischemic stroke, middle cerebral artery (MCA) CHF (congestive heart failure) Stroke Dyslipidemia Congestive heart failure Last ejection fraction 20-25% CAD (coronary artery disease) Has had stents in RCA, LAD, circumflex with last procedure being angioplasty LAD stent 2018 Ischemic cardiomyopathy History of heart attack Diabetes mellitus Palmar fascial fibromatosis [dupuytren] Surgical History Hx of shoulder surgery History of eye surgery History of coronary angiogram Family History Other CAD (coronary artery disease) Diabetes Social History Smoking and tobacco/nicotine status: never used tobacco/nicotine Alcohol intake: never Substance/Drug Use: never Vitals/I&O/Wt Last Vital Signs Temp 97.9 F 07/21/24 15:51 Pulse 123 H 07/21/24 15:51 Resp 18 07/21/24 15:51 BP 146/95 07/21/24 15:51 Pulse Ox 96 07/21/24 15:51 Weight last 48 hrs Weight 72.575 kg Physical Exam Narrative: General: Patient is awake. Head: Normocephalic. Atraumatic. Eyes are closed the majority of her interview. Neck: Slightly elevated JVD. Cardiovascular: RRR. No gallops. No murmurs. 2+ pitting edema bilateral lower extremities. Lungs: Clear to auscultation, no use of accessory muscles, no crackles or wheezes. Cough present. Skin: No jaundice. No rashes. Abdomen: Normal bowel sounds, abdomen soft and nontender. Genito Urinary: Genital exam not performed since complaints not related. Rectal: Rectal exam not performed since no symptoms indicated blood loss. Extremities: No cyanosis or clubbing. Musculoskeletal: No swollen or erythematous joints. Neurological: Moves all 4 extremities. No myoclonus. Data 07/21/24 16:26 07/21/24 16:26 A&P Assessment and plan (1) Acute exacerbation of CHF (congestive heart failure): Acute on chronic heart failure with reduced ejection fraction exacerbation Ischemic cardiomyopathy Last EF reported at 20% Follows with [facility] cardiology group He notes he refuses LifeVest Telemetry monitoring Strict I's and O's Daily weights Start IV diuresis with Bumex 2 mg IV twice daily Continue beta-job Continue Entresto Qualifiers: Heart failure type: unspecified Qualified Code(s): I50.9 - Heart failure, unspecified (2) Cough: Maybe more related to post viral cough versus CHF Check procal and CRP Continue prior to admission Augmentin and tessalon perles (3) Chronic kidney disease: Chronic kidney disease [facility] is Monitor renal function while on IV diuresis Renally dose meds Qualifiers: Chronic kidney disease stage: stage 3 (moderate) Chronic kidney disease stage 3 subtype: stage 3a (GFR 45-59) Qualified Code(s): N18.31 - Chronic kidney disease, stage 3a (4) Atherosclerosis of coronary artery of [place] heart without angina pectoris: Continue antiplatelet agents Continue beta-job Qualifiers: Coronary Disease-Associated Artery/Lesion type: [place] artery Qualified Code(s): I25.10 - Atherosclerotic heart disease of [place] coronary artery without angina pectoris (5) Diabetes mellitus: Hold long acting insulin Sliding scale insulin correction Avoid hypoglycemia Qualifiers: Diabetes mellitus complication status: without complication 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 insulin use: without marine oil terminal superintendent use Diabetes mellitus type: drug or chemical induced Qualified Code(s): 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 (6) Hypertension: Continue home medications Qualifiers: Hypertension type: primary hypertension Qualified Code(s): I10 - Essential (primary) hypertension Plan DVT prophylaxis: Heparin PDMP PDMP Reviewed: Not Reviewed Attestations Medical Necessity Statement*: Patient presents with persistent wet cough, found to have acute CHF exacerbation with expected hospitalization not to cross 2 midnights for IV diuresis. Coding Level of Care Code Acute Code for [facility] Fwd Diagnoses Acute exacerbation of CHF (congestive heart failure) I50.9 Heart failure type: unspecified Cough R05.9 Stage 3a chronic kidney disease N18.31 Chronic kidney disease stage: stage 3 (moderate) Chronic kidney disease stage 3 subtype: stage 3a (GFR 45-59) Atherosclerosis of [place] coronary artery of [place] heart without angina pectoris I25.10 Coronary Disease-Associated Artery/Lesion type: [place] artery Drug or chemical induced diabetes mellitus without complication, without long-term current use of insulin E09.9 Diabetes mellitus complication status: without complication Diabetes mellitus penitentiary insulin use: without penitentiary use Diabetes mellitus type: drug or chemical induced Primary hypertension I10 Hypertension type: primary hypertension
[2024-07-21] MEDS: FUROsemide 10 mg/mL SDV 10mL 60 MG IVP (17:41)
[2024-07-21 17:42] VITALS: BP 148/101; PULSE 108; O2SAT 93
[2024-07-21 17:48] LABS: D Dimer 2.28 ug/mLFEU (0-0.59)
[2024-07-21 18:24] LABS: Procalcitonin 0.39 ng/mL (0-0.5)
[2024-07-21 18:40] LABS: Troponin 5 2HR 64.39 ng/L (0-15)
[2024-07-21 18:44] LABS: Troponin 5 2HR Delta -9.61 ABS# (0-10)
[2024-07-21 19:00] VITALS: PULSE 105; RESP 16; O2SAT 94
[2024-07-21 19:30] VITALS: PULSE 102; RESP 17; O2SAT 95
[2024-07-21 20:01] VITALS: BP 140/94; PULSE 101; O2SAT 95
[2024-07-21 20:26] LABS: Glucose Point of Care 157 mg/dL (70-110)
[2024-07-21] MEDS: heparin 5,000 unit/mL INJ 1 mL 5000 UNIT SUBCUT (20:38)
[2024-07-21] MEDS: carvedilol 3.125 mg Tablet PO (20:38)
[2024-07-21] MEDS: ticagrelor 90 mg Tablet PO (20:38)
[2024-07-21] MEDS: insulin lispro 100 unit/1 mL SUBCUT (20:38)
[2024-07-21 21:09] VITALS: BP 131/86; PULSE 101; RESP 17; TEMP 37.4; O2SAT 95
--- NOTE | 2024-07-21 22:13 | ECG_ITS ---
[facility] 2024-[facility]21 Pat Name: Sebastien Martinez Department: Room: 268 Gender: Male Ophthalmic Medical Technologist: : 1965 Requested By: Ariana Colmenares Order Number: [id number] Reading MD: CORTNEY CH Measurements Intervals [place] Rate: 90 P: 81 FL: 176 QRS: -52 QRSD: 82 T: 151 QT: 387 QTc: 475 Interpretive Statements SINUS RHYTHM LEFT ATRIAL ENLARGEMENT [-0.15mV P-WAVE IN V1/V2] LEFT AXIS DEVIATION [QRS AXIS < -30] SEPTAL MYOCARDIAL INFARCTION , PROBABLY OLD [40+ ms Q WAVE IN V1/V2] Compared to ECG 07/21/2024 15:59:19 Atrial abnormality now present Sinus tachycardia no longer present Myocardial infarct finding still present Electronically Signed On 07-22-2024 18:16:40 CDT by CORTNEY CH [id number] [id number]
[2024-07-22] VITALS: BP 122/82; PULSE 89; RESP 16; TEMP 36.7; O2SAT 94
[2024-07-22 04:00] VITALS: BP 114/75; PULSE 82; RESP 15; TEMP 37.1; O2SAT 95
[2024-07-22 06:04] LABS: Blood Urea Nitrogen 52 mg/dL (6-20); Calcium 7.6 mg/dL (8.5-10.5); Carbon Dioxide 24 mmol/L (22-29); Chloride 100 mmol/L (98-107); Glomerular Filtration Rate 44.9 mL/min (90-130); Glucose 93 mg/dL (65-115); Magnesium 1.9 mg/dL (1.7-2.3); Osmolality Calculated 294 mOsm/kg (285-295); Sodium 135 mmol/L (136-145)
[2024-07-22 06:05] LABS: Anion Gap 15.7 (5-19); C Reactive Protein 33.4 mg/L (0.0-4.9); NT Pro B Type Natriuretic Pept 18861 pg/mL (0-125); Potassium 4.7 mmol/L (3.5-5.1)
[2024-07-22] MEDS: bumetanide 0.25 mg/mL SDV 10 mL 2 MG IVP (06:14)
--- NOTE | 2024-07-22 06:22 | PC.NURSE ---
pt's personal glucometer reads BG 105 as of 06.
[2024-07-22 07:52] VITALS: BP 134/88; PULSE 88; RESP 17; TEMP 36.8; O2SAT 95
[2024-07-22] MEDS: sacubitril/valsartan 24-26 mg Tablet 2 EACH PO (09:15)
[2024-07-22] MEDS: heparin 5,000 unit/mL INJ 1 mL 5000 UNIT SUBCUT (09:15)
[2024-07-22] MEDS: aspirin 81 mg EC Tablet PO (09:15)
[2024-07-22] MEDS: carvedilol 3.125 mg Tablet PO (09:16)
[2024-07-22] MEDS: escitalopram 10 mg Tablet 20 MG PO (09:16)
[2024-07-22] MEDS: ticagrelor 90 mg Tablet PO ×2 (09:16→17:52)
--- NOTE | 2024-07-22 09:53 | PC.CHAP ---
Pastoral Care Encounter/Spiritual Assessment Type of Contact [] Declined emergency nurse visit [] Patient/Family/Request visit [] Outpatient visit [] Follow-up visit [] Physician referral [] Code/Alert [x] Routine visit [] Staff referral [] Actively dying [] Patient sleeping [] Family support [] [] Out of room [] Palliative care [] [x] Receiving care in room [] Pre-surgical visit [] Trauma [] Long length of stay [] ICU visit [] Other: Relational/Emotional Strength [] Patient feels connected with others/family/visitors/staff [] Distress [] Loneliness/isolation [] Abandonment Spirituality of Patient [] Person of Telma [] Attends Caodaism of their Telma [] Believes in Prayer [] Reads Bible or Shinto materials [] There are Spiritual issues to be addressed Supervisor Heat Treating Interventions [x] Prayer [] Active listening [] Non-anxious presence [] Spiritual/emotional support [] Crisis/trauma care [] Spiritual counseling [] Bereavement support [] Provided bereavement packet [] Provided Bible/devotional materials [] Provided toy/stuffed animal, coloring book to patient or family member [] Provided Communion [] Anointing/[place] [] Salvation [] Completed spiritual assessment [] Other: Impact on Illness or Injury [] Angry [] Fearful [] Anxious [] Often cries [] Exhaustion [] Unable to work [] Unable to attend judaism [] Unable to walk/stand [] Unable to read [] Unable to drive [] Unable to eat/drink [] Unable to sleep [] Unable to be with family [] Patient intubated [] Other: Summary Time spent with patient
[2024-07-22 11:30] VITALS: BP 123/80; PULSE 77; RESP 18; TEMP 36.6; O2SAT 94
--- NOTE | 2024-07-22 11:57 | XRR_ITS ---
PROCEDURE INFORMATION: Exam: XR Chest Exam date and time: 07/22/2024 1:25 PM Age: 58 years old Clinical indication: Other: Not specified; Shortness of breath and chest pain; Additional info: Cough TECHNIQUE: Imaging protocol: Radiologic exam of the chest. Views: 1 view. COMPARISON: CR (CHEST, ) 07/21/2024 4:35 PM FINDINGS: Lungs: Mild vascular prominence. Subtle reticular opacities in the right lower lobe. May be infectious or inflammatory. Pleural spaces: Small right pleural effusion. No pneumothorax. No left-sided effusion. Heart/Mediastinum: Cardiomegaly. Mediastinal contours unremarkable. Bones/joints: Unremarkable. XR/XR chest 1V portable [id number] IMPRESSION: 1. Subtle reticular opacities in the right lower lobe. May be infectious or inflammatory. 2. Small right pleural effusion. May be parapneumonic if infection is present. 3. Cardiomegaly.
--- NOTE | 2024-07-22 11:58 | USCV_ITS ---
Sebastien Martinez Age: 58 Gender: M : 1965 Exam Date: 07/22/2024 13:47 Ordering Phys: Huong Celis MD Technologist: FRANSISCO Exam Location: [facility] Indication: HF BP: 123 / 80 HR: 74 Rhythm: Sinus Technical Quality: Adequate MEASUREMENTS (Male / Female) Normal Values 2D ECHO LV Diastolic Diameter PLAX 5.3 cm 4.2 - 5.9 / 3.9 - 5.3 cm IVS Diastolic Thickness 1.1 cm 0.6 - 1.0 / 0.6 - 0.9 cm IVS Systolic Thickness 0.9 cm LVPW Diastolic Thickness 1.2 cm 0.6 - 1.0 / 0.6 - 0.9 cm LVPW Systolic Thickness 1.7 cm LVOT Diameter 1.9 cm LV Ejection Fraction 2D Teich 27.1 % LV Ejection Fraction MOD 4C 20.8 % LV Ejection Fraction MOD 2C 37.5 % LV Ejection Fraction 2C AL 37.1 % LA Diameter 3.9 cm RA Systolic Volume 4C AL 35.9 ml RA Systolic Volume 4C MOD 35.3 ml LA Sys Volume AL 80.8 cm cubed LA Sys Volume Index AL 43.5 cm cubed/m squared Aorta at Sinotubular Diameter 1.8 cm IVC Diameter 1.7 cm M-MODE LA Ao Ratio MM 1.4 AV Cusp Separation MM 1.7 cm DOPPLER AV Peak Velocity 123.4 cm/s LVOT Peak Velocity 62.0 cm/s AV Area Cont Eq vti 1.8 cm squared AV Area Cont Eq pk 1.4 cm squared MV Peak Velocity 81.0 cm/s MV Area PHT 4.5 cm squared Mitral E to A Ratio 2.2 TV Peak Velocity 144.0 cm/s TR Peak Velocity 224.0 cm/s TR Peak Gradient 20.1 mmHg TV Peak E Velocity 34.0 cm/s PV Peak Velocity 63.0 cm/s FINDINGS Left Ventricle Severe diffuse hypokinesis of the left ventricule with an ejection fraction of 25%. Mildly dilated LV cavity. Right Ventricle Mildly dilated right ventricle with moderately depressed ejection fraction Right Atrium Moderately increased right atrial size. Left Atrium Moderately increased left atrial size. Mitral Valve No gross abnormalities noted Aortic Valve Mild aortic valve regurgitation. Tricuspid Valve Trace tricuspid valve regurgitation. Pulmonic Valve No gross abnormalities noted Pericardium Small pericardial effusion. Aorta Normal aortic annulus size. IVC Inferior vena cava not visualized. CONCLUSIONS Severe diffuse hypokinesis of the left ventricule with an ejection fraction of 25%. Mildly dilated LV cavity. Mildly dilated right ventricle with moderately depressed ejection fraction. Moderate biatrial enlargement Mild aortic valve regurgitation. Trace tricuspid valve regurgitation. Small pericardial effusion. There are no intracardiac masses. Compared to the study from 10/27/2023, there may not be a significant change Dr Liza Steward MD [facility] (Electronically Signed) Final Date: 22 July 2024 22:08 S
[2024-07-22] MEDS: insulin lispro 100 unit/1 mL SUBCUT (12:22)
--- NOTE | 2024-07-22 13:16 | PM.PN ---
Subjective Subjective: seen today at bedside pt reports diarrhea that started this morning has had 6 episodes states he would like to administer insulin humalog 15 min after he eats and not before he started eating as that is consistent with his home regimen he has an upcoming appt with cardiology august 05 Vitals/I&O/Wt Last Vital Signs Temp 98 F 07/22/24 11:30 Pulse 77 07/22/24 11:30 Resp 18 07/22/24 11:30 BP 123/80 07/22/24 11:30 Pulse Ox 94 07/22/24 11:30 O2 Del Method Room Air 07/22/24 11:30 07/21/24 07/22/24 07/22/24 22:59 06:59 14:59 Intake Total 0 / 0 600 / 600 360 / 360 Output Total 275 / 275 200 / 475 Balance -275 / -275 400 / 125 360 / 360 Weight last 48 hrs Weight 70.806 kg Weight 72.575 kg Weight 72.575 kg Physical Exam Narrative: General: Patient is awake. Head: Normocephalic. Atraumatic. Cardiovascular: RRR. No gallops. No murmurs. 2+ pitting edema bilateral lower extremities. (pt reports it being chronic) Lungs: Clear to auscultation, no use of accessory muscles, no crackles or wheezes. Abdomen: Normal bowel sounds, abdomen soft and nontender. Extremities: No cyanosis or clubbing. Musculoskeletal: No swollen or erythematous joints. Neurological: Moves all 4 extremities. No myoclonus. Data 07/21/24 16:26 07/22/24 04:43 A&P Assessment and plan (1) Acute exacerbation of CHF (congestive heart failure): Acute on chronic heart failure with reduced ejection fraction exacerbation Ischemic cardiomyopathy Last EF reported at 20% Follows with [facility] cardiology [facility] He notes he refuses LifeVest Telemetry monitoring Strict I's and O's Daily weights Start IV diuresis with Bumex 2 mg IV twice daily Continue beta-job Continue Entresto Qualifiers: Heart failure type: unspecified Qualified Code(s): I50.9 - Heart failure, unspecified (2) Cough: Maybe more related to post viral cough versus CHF Check procal and CRP Continue prior to admission Augmentin and tessalon perles (3) Chronic kidney disease: Chronic kidney disease [facility] is NF Monitor renal function while on IV diuresis Renally dose meds Qualifiers: Chronic kidney disease stage: stage 3 (moderate) Chronic kidney disease stage 3 subtype: stage 3a (GFR 45-59) Qualified Code(s): N18.31 - Chronic kidney disease, stage 3a (4) Atherosclerosis of coronary artery of [place] heart without angina pectoris: Continue antiplatelet agents Continue beta-job Qualifiers: Coronary Disease-Associated Artery/Lesion type: [place] artery Qualified Code(s): I25.10 - Atherosclerotic heart disease of [place] coronary artery without angina pectoris (5) Diabetes mellitus: Hold long acting insulin Sliding scale insulin correction Avoid hypoglycemia Qualifiers: Diabetes mellitus complication status: without complication Diabetes mellitus senior care insulin use: without keno terminal operator use Diabetes mellitus type: drug or chemical induced Qualified Code(s): 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 (6) Hypertension: Continue home medications Qualifiers: Hypertension type: primary hypertension Qualified Code(s): I10 - Essential (primary) hypertension Plan DVT prophylaxis: Heparin 07/23 reports diarrhea, will check for c diff check echo pt refuses lifevest check resp viral panel UO not charted accurately overnight subjectively feels better BNP [id number] on admission, [facility] cough is better today will check chest xray continue IV diuresis at this time. cr at baseline 1.6 check resp viral panel will discuss with nursing staff to administer humalog 15 min after pt eats to replicate home regimen, he has a yancy in place. will continue to check fingertsticks as well. after reviewing above testing, may consider dc to home in next 24 - 48 hours and may consider cardiology consult if results warrant further investigation PDMP PDMP Reviewed: Not Reviewed Attestations Medical Necessity Statement*: continue to hospitalize for IV diuresis Diagnoses Acute exacerbation of CHF (congestive heart failure) I50.9 Heart failure type: unspecified Cough R05.9 Stage 3a chronic kidney disease N18.31 Chronic kidney disease stage: stage 3 (moderate) Chronic kidney disease stage 3 subtype: stage 3a (GFR 45-59) Atherosclerosis of [place] coronary artery of [place] heart without angina pectoris I25.10 Coronary Disease-Associated Artery/Lesion type: [place] artery Drug or chemical induced diabetes mellitus without complication, without long-term current use of insulin E09.9 Diabetes mellitus complication status: without complication Diabetes mellitus senior care insulin use: without keno terminal operator use Diabetes mellitus type: drug or chemical induced Primary hypertension I10 Hypertension type: primary hypertension
[2024-07-22 15:56] VITALS: BP 109/70; PULSE 72; RESP 16; TEMP 36.4; O2SAT 97
[2024-07-22 16:00] LABS: Adenovirus Not Detected (NOT DETECT); Chlamydia Pneumoniae Not Detected (NOT DETECT); Coronavirus 229E,HKU1,NL63,OC4 Not Detected (NOT DETECT); Human Metapneumovirus Detected (NOT DETECT); Human Rhinovirus/Enterovirus Not Detected (NOT DETECT); Influenza A Not Detected (NOT DETECT); Influenza A H1 Not Detected (NOT DETECT); Influenza A H1-2009 Not Detected (NOT DETECT); Influenza A H3 Not Detected (NOT DETECT); Influenza B Not Detected (NOT DETECT); Mycoplasma Pneumoniae Not Detected (NOT DETECT); Parainfluenza Virus Type 1 Not Detected (NOT DETECT); Parainfluenza Virus Type 2 Not Detected (NOT DETECT); Parainfluenza Virus Type 3 Not Detected (NOT DETECT); Parainfluenza Virus Type 4 Not Detected (NOT DETECT); Respiratory Syncytial Virus A Not Detected (NOT DETECT); Respiratory Syncytial Virus B Not Detected (NOT DETECT); SARS-COV-2 Not Detected (NOT DETECT)
[2024-07-22 20:00] VITALS: BP 130/86; PULSE 76; RESP 15; TEMP 36.5; O2SAT 96
--- NOTE | 2024-07-22 20:28 | PC.NURSE ---
pt reports blood sugar is 114 tonight.
[2024-07-22 21:17] LABS: C.Diff PCR (Lab) NEGATIVE (Negative)
[2024-07-23] VITALS: BP 101/53; PULSE 64; RESP 18; TEMP 36.5; O2SAT 96
[2024-07-23] MEDS: guaiFENesin 100 mg/5 mL UDC 10 mL 200 MG PO (01:19)
[2024-07-23 04:00] VITALS: BP 126/79; PULSE 76; RESP 16; TEMP 36.6; O2SAT 96
--- NOTE | 2024-07-23 06:11 | PC.NURSE ---
Upon rounding on the pt this nurse reviewed upcoming meds with the pt to allow for questions before morning administration. The pt stated I am done with this hospitalization and do not even bother bringing anymore meds, I will not take them. This nurse asked the pt if anything could be done to help encourage him to take his meds. The pt stated that we are not helping him here an he wants to follow up with his PCP. He states he can just take his meds at home.
[2024-07-23 07:05] LABS: Glucose Point of Care 90 mg/dL (70-110)
[2024-07-23 07:10] LABS: Basophils % 0.4 %; Eosinophils # 0.1 10^3/uL (0.0-0.8); Eosinophils % 2.1 %; Hematocrit 46.3 % (37-53); Lymphocytes # 1.2 10^3/uL (0.8-4.8); Lymphocytes % 23.6 %; Mean Corpuscular Hemoglobin 31.9 pg (27-33); Mean Corpuscular Volume 96.5 fl (82-101); Mean Platelet Volume 10.6 fL (7.4-10.4); Monocytes # 0.5 10^3/uL (0.2-0.9); Monocytes % 9.1 %; Neutrophils # 3.34 10^3/uL (1.8-7.7); Neutrophils % 64.6 %; Nucleated Red Blood Cells % 0 %; Platelet Count 172 10^3/cmm (157-399); Red Cell Distribution Width 14.2 % (12.1-15.1); White Blood Count 5.17 10^3/uL (3.29-11.43)
[2024-07-23 07:30] LABS: Blood Urea Nitrogen 50 mg/dL (6-20); Calcium 7.5 mg/dL (8.5-10.5); Carbon Dioxide 25 mmol/L (22-29); Chloride 98 mmol/L (98-107); Creatinine Clr Calc Pharmacy 48.4864; Glomerular Filtration Rate 41.9 mL/min (90-130); Glucose 93 mg/dL (65-115); Magnesium 1.9 mg/dL (1.7-2.3); Osmolality Calculated 291 mOsm/kg (285-295); Sodium 134 mmol/L (136-145)
[2024-07-23 08:01] LABS: Slide Review Slide Review Perform
[2024-07-23 08:31] VITALS: BP 115/71; PULSE 71; RESP 18; TEMP 36.4; O2SAT 96
[2024-07-23] MEDS: ticagrelor 90 mg Tablet PO (09:12)
[2024-07-23] MEDS: sacubitril/valsartan 24-26 mg Tablet 2 EACH PO (09:12)
[2024-07-23] MEDS: carvedilol 3.125 mg Tablet PO (09:12)
[2024-07-23] MEDS: escitalopram 10 mg Tablet 20 MG PO (09:12)
[2024-07-23] MEDS: aspirin 81 mg EC Tablet PO (09:12)
[2024-07-23] MEDS: insulin lispro 100 unit/1 mL SUBCUT (09:17)
[2024-07-23] MEDS: bumetanide 0.25 mg/mL SDV 10 mL 2 MG IVP (09:18)
--- NOTE | 2024-07-23 10:08 | PC.CHAP ---
Pastoral Care Encounter/Spiritual Assessment Type of Contact [] Declined manager of financial planning visit [] Patient/Family/Request visit [] Outpatient visit [] Follow-up visit [] Physician referral [] Code/Alert [x] Routine visit [] Staff referral [] Actively dying [] Patient sleeping [x] Family support [] [] Out of room [] Palliative care [] [] Receiving care in room [] Pre-surgical visit [] Trauma [] Long length of stay [] ICU visit [] Other: Relational/Emotional Strength [x] Patient feels connected with others/family/visitors/staff [] Distress [] Loneliness/isolation [] Abandonment Spirituality of Patient [] Person of Telma [] Attends Protestant of their [place] [] Believes in Prayer [] Reads Bible or Jain materials [] There are Spiritual issues to be addressed Tip Printer Interventions [] Prayer [] Active listening [x] Non-anxious presence [x] Spiritual/emotional support [] Crisis/trauma care [] Spiritual counseling [] Bereavement support [] Provided bereavement packet [] Provided Bible/devotional materials [] Provided toy/stuffed animal, coloring book to patient or family member [] Provided Communion [] Anointing/[place] [] Salvation [x] Completed spiritual assessment [] Other: Impact on Illness or Injury [] Angry [] Fearful [] Anxious [] Often cries [] Exhaustion [] Unable to work [] Unable to attend shinto [] Unable to walk/stand [] Unable to read [] Unable to drive [] Unable to eat/drink [] Unable to sleep [] Unable to be with family [] Patient intubated [] Other: Summary Time spent with patient 5 min
--- NOTE | 2024-07-23 11:04 | P.DS_ITS ---
Discharge Providers Date of Admission: 07/21/24 17:56 Date of Discharge: July 23, 2024 Attending Provider at Admission: William Douglas MD Attending Provider at Discharge: Huong Celis MD Primary Care Provider: Bret Gale MD Diagnoses at Discharge Discharge Diagnosis (1) Acute exacerbation of CHF (congestive heart failure): Status: Resolved Qualifiers: Heart failure type: unspecified Qualified Code(s): I50.9 - Heart failure, unspecified (2) Cough: Status: Resolved (3) Chronic kidney disease: Status: Chronic Qualifiers: Chronic kidney disease stage: stage 3 (moderate) Chronic kidney disease stage 3 subtype: stage 3a (GFR 45-59) Qualified Code(s): N18.31 - Chronic kidney disease, stage 3a (4) Atherosclerosis of coronary artery of [place] heart without angina pectoris: Status: Acute Qualifiers: Coronary Disease-Associated Artery/Lesion type: [place] artery Qualified Code(s): I25.10 - Atherosclerotic heart disease of [place] coronary artery without angina pectoris (5) Diabetes mellitus: Status: Acute Qualifiers: Diabetes mellitus complication status: without complication Diabetes mellitus correction insulin use: without correction use 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 Patient refuses LifeVest. Patient complained of a cough therefore respiratory viral panel was checked. He was positive for human metapneumovirus. He was diuresed with IV Bumex for 48 hours. Symptoms improved and he was back to his baseline. Echo was redone which did not show significant changes compared to prior echo. Patient discharged home in stable condition at this time. Please see progress notes for details. Physical Exam Narrative: General: Patient is awake. Head: Normocephalic. Atraumatic. Cardiovascular: RRR. No gallops. No murmurs. Chronic bilateral lower extremity edema Lungs: Clear to auscultation, no use of accessory muscles, no crackles or wheezes. Abdomen: Normal bowel sounds, abdomen soft and nontender. Extremities: No cyanosis or clubbing. Musculoskeletal: No swollen or erythematous joints. Neurological: Moves all 4 extremities. No myoclonus. Discharge Data Studies Completed and Pending Completed Studies During Hospitalization Category Date Time Status XR chest 1V portable [id number] Routine Exams 07/22/24 11:57 Completed XR chest 1V portable [id number] Urgent Exams 07/21/24 16:01 Completed CV. echo complete* [id number] Urgent Ultrasound 07/22/24 11:58 Completed Radiology Impressions Chest X-Ray 07/22/24 11:57 IMPRESSION: 1. Subtle reticular opacities in the right lower lobe. May be infectious or inflammatory. 2. Small right pleural effusion. May be parapneumonic if infection is present. 3. Cardiomegaly. Laboratory Results WBC 5.17 10^3/uL (3.29-11.43) 07/23/24 06:21 RBC 4.80 10^6/uL (3.85-5.65) 07/23/24 06:21 Hgb 15.30 g/dL (11.27-16.99) 07/23/24 06:21 Hct 46.3 % (37-53) 07/23/24 06:21 MCV 96.5 fl (82-101) 07/23/24 06:21 MCH 31.9 pg (27-33) 07/23/24 06:21 MCHC 33.0 g/dL (30-55) 07/23/24 06:21 RDW 14.2 % (12.1-15.1) 07/23/24 06:21 Plt Count 172 10^3/cmm (157-399) 07/23/24 06:21 MPV 10.6 fL (7.4-10.4) H 07/23/24 06:21 Neut % (Auto) 64.6 % 07/23/24 06:21 Lymph % (Auto) 23.6 % 07/23/24 06:21 [place] % (Auto) 9.1 % 07/23/24 06:21 Eos % (Auto) 2.1 % 07/23/24 06:21 Baso % (Auto) 0.4 % 07/23/24 06:21 Neut # (Auto) 3.34 10^3/uL (1.8-7.7) 07/23/24 06:21 Lymph # (Auto) 1.2 10^3/uL (0.8-4.8) 07/23/24 06:21 [place] # (Auto) 0.5 10^3/uL (0.2-0.9) 07/23/24 06:21 Eos # (Auto) 0.1 10^3/uL (0.0-0.8) 07/23/24 06:21 Baso # (Auto) 0.0 10^3/uL (0.0-0.1) 07/23/24 06:21 Nucleated RBC % (auto) 0 % 07/23/24 06:21 Nucleated RBCs # 0.0 /100WBC 07/23/24 06:21 D-Dimer 2.28 ug/mLFEU (0-0.59) H 07/21/24 16:26 Sodium 134 mmol/L (136-145) L 07/23/24 06:21 Potassium 4.0 mmol/L (3.5-5.1) 07/23/24 06:21 Chloride 98 mmol/L (98-107) 07/23/24 06:21 Carbon Dioxide 25 mmol/L (22-29) 07/23/24 06:21 Anion Gap 15.0 (5-19) 07/23/24 06:21 BUN 50 mg/dL (6-20) H 07/23/24 06:21 Creatinine 1.7 mg/dL (0.7-1.2) H 07/23/24 06:21 GFR Calculation 41.9 mL/min (90-130) L 07/23/24 06:21 Glucose 93 mg/dL (65-115) 07/23/24 06:21 POC Glucose 90 mg/dL (70-110) 07/23/24 06:46 Calculated Osmolality 291 mOsm/kg (285-295) 07/23/24 06:21 Calcium 7.5 mg/dL (8.5-10.5) L 07/23/24 06:21 Magnesium 1.9 mg/dL (1.7-2.3) 07/23/24 06:21 Total Bilirubin 1.0 mg/dL (0.15-1.2) 07/21/24 16:26 AST 45 U/L (0-40) H 07/21/24 16:26 ALT 29 U/L (0-41) 07/21/24 16:26 Alkaline Phosphatase 332 U/L (40-130) H 07/21/24 16:26 Troponin T Baseline 74 ng/L (0-15) H 07/21/24 16:26 Troponin T 120 Minute 64.39 ng/L (0-15) H 07/21/24 18:16 Delta Troponin T -9.61 ABS# (0-10) L 07/21/24 18:16 C-Reactive Protein 33.4 mg/L (0.0-4.9) H 07/22/24 04:43 NT-Pro-B Natriuret Pep 84823 pg/mL (0-125) H 07/22/24 04:43 Total Protein 7.7 g/dL (6.6-8.7) 07/21/24 16: Albumin 3.1 g/dL (3.5-5.2) L 07/21/24 16:26 Globulin 4.6 g/dL (1.3-4.6) 07/21/24 16:26 Procalcitonin 0.39 ng/mL (0-0.5) 07/21/24 16:26 Adenovirus (PCR) Not detected (NOT DETECT) 07/22/24 13:00 C. pneumoniae DNA (PCR) Not detected (NOT DETECT) 07/22/24 13:00 C. difficile (PCR) Negative (Negative) 07/22/24 19:37 Coronavirus 229E (PCR) Not detected (NOT DETECT) 07/22/24 13:00 Human Metapneumovir PCR Detected (NOT DETECT) A 07/22/24 13:00 Influenza A (H1) PCR Not detected (NOT DETECT) 07/22/24 13:00 Influ A (H1/09) PCR Not detected (NOT DETECT) 07/22/24 13:00 Influenza A (H3) PCR Not detected (NOT DETECT) 07/22/24 13:00 Influenza Type A (PCR) Not detected (NOT DETECT) 07/22/24 13:00 Influenza Type B (PCR) Not detected (NOT DETECT) 07/22/24 13:00 M. pneumoniae (PCR) Not detected (NOT DETECT) 07/22/24 13:00 Parainfluenza 1 (PCR) Not detected (NOT DETECT) 07/22/24 13:00 Parainfluenza 2 (PCR) Not detected (NOT DETECT) 07/22/24 13:00 Parainfluenza 3 (PCR) Not detected (NOT DETECT) 07/22/24 13:00 Parainfluenza 4 (PCR) Not detected (NOT DETECT) 07/22/24 13:00 RSV Type A (PCR) Not detected (NOT DETECT) 07/22/24 13:00 RSV Type B (PCR) Not detected (NOT DETECT) 07/22/24 13:00 Entero/Rhino (PCR) Not detected (NOT DETECT) 07/22/24 13:00 SARS-CoV-2 (PCR) Not detected (NOT DETECT) 07/22/24 13:00 Vitals Last Vital Signs Temp 97.5 F L 07/23/24 08:31 Pulse 71 07/23/24 08:31 Resp 18 07/23/24 08:31 BP 115/71 07/23/24 08:31 Pulse Ox 96 07/23/24 08:31 O2 Del Method Room Air 07/23/24 08:31 Discharge Plan Discharge Patient Disposition: Home Condition: Stable Prescriptions: Continued diphenoxylate-atropine [Lomotil] 2.5-0.025 mg tablet 1 tab PO DAILY PRN (Reason: loose stools) Men's Multivitamin Gummies 200 mcg tablet,chewable 1 tab PO DAILY Vitamin B-12 Gummie 1 gummy PO DAILY Brilinta 90 mg tablet 90 mg PO BID Qty: 180 3RF insulin lispro [Humalog KwikPen Insulin] 100 unit/mL insulin pen 4 unit SUBCUT TID Rx Instructions: Sliding scale aspirin 81 mg tablet,delayed release (DR/EC) 81 mg PO DAILY Qty: 90 3RF fluticasone propionate 50 mcg/actuation spray,suspension 2 mcg INTRANASAL DAILY insulin degludec [Tresiba FlexTouch U-100] 100 unit/mL (3 mL) insulin pen 4 unit SUBCUT DAILY dapagliflozin propanediol [Farxiga] 10 mg Tablet 10 mg PO QAM bumetanide 2 mg tablet 2 mg PO BID benzonatate 200 mg capsule 200 mg PO TID metolazone 5 mg tablet See Rx Instructions .ROUTE .COMPLEX Rx Instructions: USE SPARINGLY, TAKE 1 TAB BY MOUTH WHEN GAINING 4-5 LBS IN 2 TO 3 DAYS carvedilol 3.125 mg tablet 3.125 mg PO BID escitalopram oxalate 20 mg tablet 20 mg PO DAILY coenzyme Q10 [CoQ-10] 100 mg Capsule 100 mg PO DAILY Entresto 49-51 mg tablet 1 tab PO DAILY Discontinued amoxicillin-pot clavulanate 875-125 mg tablet 1 tab PO BID Discharge Orders: Discharge Order (Routine); Ordered 07/23/24 Ordered By: Huong Celis Referrals: Bret Gale MD [Primary Care Provider] - 07/30/24 10:15 am Discharge Diet: Cardiac and Diabetic Patient Instructions: Heart Failure (GEN), CHF Stoplight, Opioid Safety Discharge Attestations Time Spent in Discharge Care*: greater than 30 min Quality Metrics Clinical Quality Measures [ No reported AMI, CVA or VTE this stay] Coding Level of Care Code Acute Code for Chg Fwd Diagnoses Acute exacerbation of CHF (congestive heart failure) I50.9 Heart failure type: unspecified Cough R05.9 Stage 3a chronic kidney disease N18.31 Chronic kidney disease stage: stage 3 (moderate) Chronic kidney disease stage 3 subtype: stage 3a (GFR 45-59) Atherosclerosis of [place] coronary artery of [place] heart without angina pectoris I25.10 Coronary Disease-Associated Artery/Lesion type: [place] artery 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
[2024-07-23 11:23] VITALS: BP 118/73; PULSE 72; RESP 16; TEMP 36.4; O2SAT 93
--- NOTE | 2024-07-23 11:29 | PC.NURSE ---
Discharge Note Patient discharged to home via private vehicle accompanied by . Discharge instructions reviewed with patient and/or special service representative. Mobile pharmacy medications and/or prescriptions provided. Belongings/home medications returned. Encouraged patient to come to the ER if he developed increased shortness of breath or chest pain. Patient verbalized understanding,.
[2024-07-23 11:31] VITALS: BP 118/73; PULSE 72; RESP 16; TEMP 36.4; O2SAT 93
== END 2024-07-23 11:34 | disposition home or self-care (01) ==
LOC: ER 17:38 → MEDSURG 18:32
PROVIDERS: Admitting Provider Internal Medicine; Emergency Provider Physician Assistant; PCP Family Medicine; Visit Provider Internal Medicine
DX: E11.22 Type 2 diabetes mellitus with diabetic chronic kidney disease (principal); I13.0 Hypertensive heart and chronic kidney disease with heart failure and stage 1 through stage 4 chronic kidney disease, or unspecified chronic kidney disease; N18.31 Chronic kidney disease, stage 3a; I50.20 Unspecified systolic (congestive) heart failure; I50.9 Heart failure, unspecified; R05.9 Cough, unspecified; I25.5 Ischemic cardiomyopathy; E78.5 Hyperlipidemia, unspecified; I25.2 Old myocardial infarction; Z79.82 Long term (current) use of aspirin; Z79.4 Long term (current) use of insulin; J12.3 Human metapneumovirus pneumonia; R19.7 Diarrhea, unspecified; Z83.3 Family history of diabetes mellitus; Z82.49 Family history of ischemic heart disease and other diseases of the circulatory system; Z86.73 Personal history of transient ischemic attack (TIA), and cerebral infarction without residual deficits
CPT/HCPCS: 36415; 36416; 71045; 80048; 80053; 82962; 83735; 83880; 84145; 84484; 85025; 85378; 86140; 87486; 87493; 87581; 87633; 93005; 93306; 96372; 96374; 99285; G0378; J1644; J1815; J1940; J3490; J9999